=== PATIENT | female | born 1965 | race Caucasian/White ===

== ENCOUNTER 2020-01-31 19:18 | Inpatient (IN) | payer MEDICARE, SELFPAY ==
[2020-01-31] VITALS (7 sets, daily range): BP systolic 156–206; BP diastolic 88–118; PULSE 83–117; RESP 18–25; TEMP 36.5–37; O2SAT 94–96; BMI 31.6
--- NOTE | 2020-01-31 | DI.ECHO.S_ITS ---
[facility] +---------+ : : [address] : : : : [id number] : : : : Phone: [phone]+ Echocardiogram Report + + :Name: BEE POOLE Study Date: 02/01/2020 Height: 63 in : :[facility] Weight: 178 lb : : Gender: Female BSA: 1.8 m2 : :: 1965 Age: 54 yrs BP: 156/118 mmHg: :Reason For Study: CVA : :Ordering Physician: Lio : :Hospitalist Performed By: Lisa Velasquez : :Referring: SIDRA BEE : + + Interpretation Summary The left ventricle is normal in size. The left ventricle is hyperdynamic. The ejection fraction is estimated to be 70-75%. There are no obvious focal wall motion abnormalities noted but poor endocardial definition reduces the sensitivity for the detection of such. Diastolic parameters suggest a relaxation abnormality of the left ventricle, consistent with probable normal filling pressures. The right ventricle is not well visualized. The left atrial size is normal. Right atrium not well visualized. The interatrial septum is not well visualized, but there was no obvious moderate to large shunt on bubble study. The aortic root is not well visualized but is probably normal size. No obvious significant valvular abnormalities. Procedure: A two-dimensional transthoracic echocardiogram with color flow and Doppler was performed. The study quality was technically difficult. There is no prior echocardiogram noted for this patient. The injection was performed through an intravenous line in the right arm. The patient was in normal sinus rhythm during the exam. Left Ventricle: The left ventricle is normal in size. There is mild asymmetric left ventricular hypertrophy. The left ventricle is hyperdynamic. The ejection fraction is estimated to be 70-75%. There are no obvious focal wall motion abnormalities noted but poor endocardial definition reduces the sensitivity for the detection of such. Diastolic parameters suggest a relaxation abnormality of the left ventricle, consistent with probable normal filling pressures. Right Ventricle: The right ventricle is not well visualized. Atria: The left atrial size is normal. Right atrium not well visualized. The interatrial septum is not well visualized, but there was no obvious moderate to large shunt on bubble study. Mitral Valve: The mitral valve is normal in structure and function. There is trace mitral regurgitation. Aortic Valve: The aortic valve is not well visualized. There is no aortic stenosis. No aortic regurgitation is present. Tricuspid Valve: The tricuspid valve is not well visualized, but is grossly normal. Pulmonary artery pressures cannot be estimated because of the lack of a measurable TR jet velocity. There is a trace or physiologic amount of tricuspid regurgitation. Pulmonic Valve: The pulmonic valve is not well visualized. Great Vessels: The aortic root is not well visualized but is probably normal size. The ascending aorta is at the upper limits of normal in size. The IVC is of normal diameter and collapses greater than 50% with a sniff. This suggests a low right atrial pressure of 3 mm Hg. Pericardium/ Pleura There is an anterior echo-free space consistent with a fat pad. There is no pericardial effusion. There is no pleural effusion. MMode/2D Measurements & Calculations LVIDd: 4.9 cm LVOT diam: 2.1 cm LVIDs: 2.7 cm asc Aorta Diam: 3.3 cm FS: 45.2 % IVSd: 0.99 cm LVPWd: 1.2 cm LV willard. diameter/BSA (cm/m^2): 2.7 LV sys. diameter/BSA (cm/m^2): 1.5 LA A2 area: 11.4 cm2 IVC diam: 1.5 cm LA A4 area: 11.6 cm2 LA length (vol): 4.8 cm LA vol: 23.5 ml LA vol index: 12.8 ml/m2 Doppler Measurements & Calculations Ao V2 max: 135.7 cm/sec LVOT Max Job: 128.4 cm/sec Ao V2 mean: 106.7 cm/sec LV V1 max P.6 mmHg Ao max P.4 mmHg LV V1 VTI: 22.1 cm Ao mean P.7 mmHg LIBBY(I,D): 3.4 cm2 Ao V2 VTI: 21.8 cm LIBBY(V,D): 3.1 cm2 sev ratio: 1.0 LIBBY indexed to BSA (cm^2/m^2): 1.8 MV E max job: 71.0 cm/sec SV(LVOT): 73.2 ml MV A max job: 100.5 cm/sec MV E/A: 0.71 Med Peak E' Job: 7.3 cm/sec E/E' med: 9.8 Lat Peak E' Job: 7.6 cm/sec E/E' lat: 9.4 E/e' average: 9.6 MV dec time: 0.19 sec Reading Physician:02:58 PM
--- NOTE | 2020-01-31 19:39 | ED.NEUROSD ---
HPI - Neuro Symptoms/Deficit General Chief Complaint: Neuro Symptoms/Deficit Stated Complaint: BLIND SPOT LEFT EYE SHARP PAIN TOP HEAD Time Seen by Provider: 01/31/20 19:28 Source: patient Mode of arrival: Ambulatory Limitations: no limitations History of Present Illness HPI Narrative: This is a 54-year-old female who comes to the emergency department with complaint of loss of vision in the left side. Patient states she noticed it about noon today. She has also had a headache for about 2 weeks on the right side of her head. She states it felt like somebody is poking her with an ice pick in the head and occasionally twisting it. Sort of runs down her face. She did not notice any vision changes until she was driving today. She states she only drives intermittently and she realized that she could see a car from far away would disappear and then show up in her peripheral vision again. Patient states that she has neuropathy in her left leg so she typically has numbness there but she noticed numbness in her left arm in the last day or so. Patient denies any facial droop but states she does not look in the mirror, she states she does not talk to a lot of people so she does not know if she had any dysarthria but has had to gas and some words occasionally. She denies any current chest pressure. She has chronic shortness of breath secondary to her COPD states she is on oxygen 100% of the time. No nausea, no vomiting or other GI or urinary symptoms. Patient states that she did stop her medications for diabetes, dyslipidemia hypertension which was Lasix within the last year. She does continue to use her Combivent and oxygen regularly. She does still smoke. She states she has had a in the past but denies other surgical history. On Anticoagulants: No Related Data Previous Rx's Medication Instructions Recorded Combivent Respimat 1 puff INH Q6H #1 inh 11/06/16 Allergies Allergy/AdvReac Type Severity Reaction Status Date / Time azithromycin Allergy Severe ARM PAIN Verified 02/01/20 00:27 AND FACIAL REDNESS DURING INFUSION naproxen Allergy Severe Hives Verified 02/01/20 00:27 penicillin G Allergy Severe RASH Verified 02/01/20 00:27 codeine Allergy Mild RASH Verified 02/01/20 00:27 hydrocodone Allergy Mild RASH Verified 02/01/20 00:27 Review of Systems Review of Systems ROS Unobtainable: All systems reviewed & are unremarkable except as noted in HPI and below Patient History Medical History (Updated 02/01/20 @ 00:36 by DEBBY Summers) Cardiac arrhythmia (Acute) Chronic obstructive pulmonary disease (10/14/14) Diabetes (Acute) Diabetic neuropathy (Acute) Dyslipidemia (Acute) Hypertension (Acute) Surgical History (Updated 02/01/20 @ 00:36 by DEBBY Summers) History of (Acute) History of local excision of skin lesion (Acute) Family History Father Alcoholic cirrhosis Mother Age: 77 Diabetes mellitus type II, controlled CVA (cerebral infarction) Social History household members: children Smoking Status: Current every day smoker alcohol intake: former Smoking Status: Current every day smoker Exam Narrative Exam Narrative: GEN: well nourished, well appearing female, alert and oriented x 3, patient appears to be in mild distress. HEENT: Atraumatic, pupils are equal round reactive to light, extraocular movements are intact, patient has left visual loss of visual ashraf, nares are clear, TMs are clear with no fluid, there is no conjunctival pallor. Throat is clear without any exudates, erythema, tonsillar enlargement or uvular deviation, no facial droop noted, no dysarthria. HEART: Regular rate and rhythm without murmur, clicks, rubs. Pulses are equal in upper and lower extremities LUNGS:Lungs clear to auscultation, no wheezes, rales, crackles, chest moves symmetrically ABD:bowel sounds normal, soft, non-tender, no guarding, rebound, rigidity, no masses noted, no hepatosplenomegaly :No CVA tenderness MSCL: Non-tender, no muscle atrophy, muscles strength 5/5 upper and lower extremities, full range of motion, normal gait NEURO:CN 2-12 intact, sensation is intact bilaterally but decreased on the left in comparison to right, reflexes 2/4 upper and lower extremities. finger nose finger test normal, heel trinidad test normal, romberg normal Initial Vital Signs Initial Vital Signs: Vital Signs Temperature 98.6 F 01/31/20 19:27 Pulse Rate 117 H 01/31/20 19:27 Respiratory Rate 25 H 01/31/20 19:27 Blood Pressure 187/109 H 01/31/20 19:27 Pulse Oximetry 94 01/31/20 19:27 Scores NIH Stroke Scale Level of Conciousness: Alert, keenly responsive Ask month/age: Answers both questions correctly. Open/close eyes, close hand: Performs both tasks correctly Best gaze horizontal: Normal Visual ashraf: Partial hemianopia Facial palsy: Normal symetrical movement Left arm drift: No drift for full 10 sec Right arm drift: No drift for full 10 sec Left leg drift: No drift for full 10 sec Right leg drift: No drift for full 10 sec Limb ataxia: Absent Sensory on face/arms/legs: Mild to moderate sensory loss, can tell touch Best language: No aphasia, normal Dysarthria: Normal Extinction or inattention: No abnormality Total NIH Stroke scale score: 2 Course Orders Ordered: ED Orders 01/31/20 19:29 EKG-12 Lead Stat 01/31/20 19:45 Complete Blood Count AUTO DIFF Stat Comprehensive Metabolic Panel Stat Partial Thromboplastin Time Stat Prothrombin Time INR Stat Troponin & CK Cardiac Panel Stat 01/31/20 19:54 CT angio head and neck Stat Acetaminophen (Tylenol) 650 mg PO Q6HR PRN PRN Reason: Fever/Mild Pain (1-3) Last Admin: 02/01/20 00:33 Dose: 650 mg Documented by: TERESSA Al Hydrox/Mg Hydrox/Simethicone (Maalox Plus) 30 ml PO Q6HR PRN PRN Reason: Dyspepsia Albuterol (Ventolin) 2.5 mg INH [id number] PRN PRN Reason: Shortness Of Breath Albuterol/Ipratropium (Duoneb) 3 ml INH RTQ6HR PRN PRN Reason: Shortness Of Breath Last Admin: 02/01/20 00:05 Dose: 3 ml Documented by: ERNST Aspirin (Aspirin Ec) 81 mg PO DAILY SHANIQUE Atorvastatin Calcium (Lipitor) 20 mg PO BEDTIME SHANIQUE Bisacodyl (Dulcolax) 10 mg AL DAILY PRN PRN Reason: Constipation Calcium Carbonate (Tums) 1,000 mg PO Q4HR PRN PRN Reason: Dyspepsia Dextrose (D50w) 25 gm IV PRN PRN; Protocol PRN Reason: Hypoglycemia Docusate Sodium (Colace) 100 mg PO BID PRN PRN Reason: Constipation Enoxaparin Sodium (Lovenox) 40 mg SUBCUT DAILY [facility] Insulin Aspart (Novolog Flexpen) 0 unit SUBCUT ACHS [facility]; Protocol Labetalol HCl (Trandate) 10 mg IV Q4HR PRN PRN Reason: Hypertension Lisinopril (Zestril) 20 mg PO DAILY [facility] Last Admin: 02/01/20 00:33 Dose: 20 mg Documented by: TERESSA Naloxone HCl (Narcan) 0.2 mg IV Q2MIN PRN PRN Reason: Opiate Reversal Ondansetron HCl (Zofran) 4 mg IV Q8HR PRN PRN Reason: Nausea And Vomiting Last Admin: 02/01/20 00:33 Dose: 4 mg Documented by: TERESSA Discontinued Medications Aspirin (Aspirin Chew) 324 mg PO NOW ONE Stop: 01/31/20 21:44 Last Admin: 01/31/20 22:21 Dose: 324 mg Documented by: VIRAL Sodium Chloride (Normal Saline 0.9%) 1,000 mls @ 150 mls/hr IV CONT [facility] Stop: 01/31/20 22:44 Last Infusion: 01/31/20 22:25 Dose: 0 mls/hr Documented by: Admin: 01/31/20 20:48 Dose: 150 mls/hr Documented by: VIRAL Influenza Virus Vaccine (Flu Vaccine) 0.5 ml IM .ONCE ONE Stop: 01/31/20 22:51 Metoprolol Tartrate (Lopressor) 5 mg IV NOW ONE Stop: 01/31/20 21:09 Last Admin: 01/31/20 21:17 Dose: 5 mg Documented by: VIRAL Metoprolol Tartrate (Lopressor) 5 mg IV Q5M [facility] Stop: 01/31/20 21:56 Last Admin: 01/31/20 23:14 Dose: Not Given Documented by: Admin: 01/31/20 23:14 Dose: Not Given Documented by: Admin: 01/31/20 23:14 Dose: Not Given Documented by: TERESSA Vital Signs Vital signs: Vital Signs - 8 hr 01/31/20 19:27 01/31/20 21:07 01/31/20 21:18 Temperature 98.6 F Pulse Rate 117 H 89 88 Respiratory Rate 25 H 22 Blood Pressure 187/109 H Blood Pressure [Left Arm] 206/98 H 206/98 H Pulse Oximetry 94 96 MDM - Neuro Symptoms/Deficit Lab Data Attestation: I reviewed the patient's lab results. Result diagrams: 01/31/20 19:45 01/31/20 19:45 Labs: Lab Results 01/31/20 01/31/20 01/31/20 Range/Units 19:45 19:45 19:45 WBC 10.4 (4.5-11.0) X10^3/uL RBC 5.38 H (4.0-5.2) X10^6/uL Hgb 16.7 H (12.0-16.0) g/dL Hct 48.5 H (36-46) % MCV 90.1 (80-100) fL MCH 31.1 (26-34) PG MCHC 34.5 (30-36) % RDW 13.4 (11.6-14.8) % Plt Count 214 (150-400) X10^3/uL Neut % (Auto) 51.9 (50-75) % Lymph % (Auto) 39.3 (25-40) % [place] % (Auto) 6.8 (3-14) % Eos % (Auto) 0.8 L (2-4) % Baso % (Auto) 1.2 (0-2) % Neut # (Auto) 5400 (6970-1227) /uL Lymph # (Auto) 4100 (4088-3737) /uL [place] # (Auto) 700 (0-900) /uL Eos # (Auto) 100 (0-450) /uL Baso # (Auto) 100 (0-100) /uL PT 11.4 (10.1-12.7) SECONDS INR 1.0 (0.9-1.3) APTT 29 (26.4-36.2) SECONDS Sodium 138 (137-145) mmol/L Potassium 3.8 (3.4-5.1) mmol/L Chloride 102 (98-107) mmol/L Carbon Dioxide 28 (22-32) mmol/L BUN 14 (7-17) mg/dL Creatinine 0.71 (0.52-1.04) mg/dL Estimated GFR > 60.0 (>60) mL/min BUN/Creatinine Ratio 19.7 (6-22) Glucose 230 H (70-100) mg/dL Hemoglobin A1c (4.0-6.0) % Calcium 10.0 (8.4-10.2) mg/dL Magnesium (1.6-2.3) mg/dL Total Bilirubin 0.4 (0.2-1.3) mg/dL AST 24 (14-36) IU/L ALT 21 (<35) IU/L Alkaline Phosphatase 124 (38-126) U/L Total Creatine Kinase 34 (30-135) U/L CK-MB (CK-2) TNP CK-MB (CK-2) Rel Index TNP Troponin I < 0.012 (0.01-0.034) ng/mL Total Protein 7.5 (6.3-8.2) g/dL Albumin 4.3 (3.5-5.0) g/dL Globulin 3.2 (1.7-4.1) g/dL Albumin/Globulin Ratio 1.3 (1.0-2.8) 01/31/20 01/31/20 Range/Units 19:45 19:45 WBC (4.5-11.0) X10^3/uL RBC (4.0-5.2) X10^6/uL Hgb (12.0-16.0) g/dL Hct (36-46) % MCV (80-100) fL MCH (26-34) PG MCHC (30-36) % RDW (11.6-14.8) % Plt Count (150-400) X10^3/uL Neut % (Auto) (50-75) % Lymph % (Auto) (25-40) % [place] % (Auto) (3-14) % Eos % (Auto) (2-4) % Baso % (Auto) (0-2) % Neut # (Auto) (4775-3759) /uL Lymph # (Auto) (7162-9961) /uL [place] # (Auto) (0-900) /uL Eos # (Auto) (0-450) /uL Baso # (Auto) (0-100) /uL PT (10.1-12.7) SECONDS INR (0.9-1.3) APTT (26.4-36.2) SECONDS Sodium (137-145) mmol/L Potassium (3.4-5.1) mmol/L Chloride (98-107) mmol/L Carbon Dioxide (22-32) mmol/L BUN (7-17) mg/dL Creatinine (0.52-1.04) mg/dL Estimated GFR (>60) mL/min BUN/Creatinine Ratio (6-22) Glucose (70-100) mg/dL Hemoglobin A1c 9.7 H (4.0-6.0) % Calcium (8.4-10.2) mg/dL Magnesium 1.8 (1.6-2.3) mg/dL Total Bilirubin (0.2-1.3) mg/dL AST (14-36) IU/L ALT (<35) IU/L Alkaline Phosphatase (38-126) U/L Total Creatine Kinase (30-135) U/L CK-MB (CK-2) CK-MB (CK-2) Rel Index Troponin I (0.01-0.034) ng/mL Total Protein (6.3-8.2) g/dL Albumin (3.5-5.0) g/dL Globulin (1.7-4.1) g/dL Albumin/Globulin Ratio (1.0-2.8) Urine Dip Bedside Urine Glucose Negative Bedside Urine Bilirubin - Negative Bedside Urine Ketone - Negative Urine Specific [place] 1.010 Bedside Urine Occult Blood - Negative Bedside Urine pH 5.5 Bedside Urine Protein +/- 15 Bedside Urine Urobilinogen - Negative Bedside Urine Nitrite - Negative Bedside Urine Leukocytes - Negative Esterase Imaging Data CT head and neck angio: Radiologist's Impression: [place] [address] CT Scan Report Signed Patient: Jazmin Barragan [facility]#: [id number] : 1965Acct:[id number] Age/Sex: 54 / FDate of Service: 01/31/20 Loc: ED Accession Number: [id number] Procedure: CT angio head and neck Ordering Provider: Ameena Riddle D.O. PROCEDURE: CT ANGIO HEAD AND NECK INDICATIONS: left hemianopsia and left decreased sensation upper and low TECHNIQUE: Pre-contrast 4.5 mm thick sections acquired from the foramen magnum to the vertex. After the administration of intravenous contrast, 1 mm thick sections acquired from the aortic arch through the [place]. Post-contrast 4.5 mm thick sections then re-acquired from the foramen magnum to the vertex. 3-dimensional pljabni-qjsvveccn-djosvojntj (MIP) and/or volume rendering reformats were acquired of the central intracranial vasculature and neck separately. COMPARISON: None. FINDINGS: Image quality: Excellent. BRAIN: CSF spaces: Ventricles are normal in size and shape. Basal cisterns are patent. No extra-axial fluid collections. Brain: No midline shift. No intracranial bleeds or masses. Wyatt-white matter interface appears normal except for what appears to be a subacute stroke with low attenuation at the posterior right occipital lobe, in an area measuring up to 3.6 cm oblique transverse and 2.1 cm oblique AP. This results in effacement of the overlying cortical sulci in the right posterior occipital lobe directly contiguous with the area of ischemic injury. Skull and face: Calvarium and facial bones appear intact, without suspicious lesions. Orbits appear normal. Sinuses: Sinuses and mastoids are clear. HEAD CT ANGIOGRAPHY: Anterior circulation: Intracranial internal carotid arteries are normal in size and flow. The flow within the paired anterior cerebral arteries is normal and symmetric. The flow within the middle cerebral arteries is normal and symmetric. The anterior communicating artery is seen. No aneurysms are seen. Posterior circulation: Visualized portions of the vertebral arteries demonstrate normal caliber, and join to form a normal appearing basilar artery. Flow within the posterior cerebral arteries is normal and symmetric. No aneurysms are seen. NECK CT ANGIOGRAPHY: Carotid system: The great vessels demonstrate a conventional anatomy as they arise from the aortic arch. The origins of the common carotid arteries appear patent. The common carotid arteries demonstrate normal caliber and courses. The bifurcation regions are both widely patent. The internal carotid arteries demonstrate normal calibers and courses. Posterior circulation: The origins of the vertebral arteries both appear widely patent. The more superior extracranial portions of both vertebral arteries also demonstrate normal courses and calibers. They join to form a normal appearing basilar artery. Soft tissues: Visualized neck soft tissues demonstrate no suspicious abnormalities. Bones: No suspicious bony lesions. Visualized cervical spine appears normally aligned. IMPRESSION: Subacute stroke located within the right occipital lobe, measuring up to 3.6 x 2.6 cm, with mild local mass effect effacing overlying cortical sulci. An aneurysm, dissection, or thrombosis in the vasculature leading to this area is not found. Any quantitative measurements of stenosis were performed using NASCET criteria. Dictated by: Nabil Canales M.D. on 01/31/2020 at 21:13 Approved by: Nabil Canales M.D. on 01/31/2020 at 21:18 ECG Data Attestation: I personally reviewed and interpreted this ECG as follows: Interpretation: Sinus tachycardia rate 101 AL 180 QRS 85 and QTC 395[address] No ST elevation appreciated. No ST depression. MDM Narrative Medical decision making narrative: Patient comes in with hemianopsia and decreased sensation in the left upper and lower extremity as well as left face/cheek, patient has had symptoms for at least today, as well as vision changes that she noted sometime around noon today but states she had not been driving before then so did not appreciate them and isn't sure how long they have been present for sure. CT does show findings of a subacute stroke with a small amount of swelling. Patient is hypertensive in the department, her blood pressure did improve she was given a dose of metoprolol. Given aspirin which she states she is not allergic too and labs show elevated glucose but otherwise normal lab findings. Discussed with patient that likely her uncontrolled hypertension, diabetes and cholesterol treated to her recent stroke. Spoke with nurse practitioner Ronni Ferrer who accepts for admission. Discharge Plan Departure Patient Disposition: Admitted As Inpatient Clinical Impression: Acute CVA (cerebrovascular accident) Discharge Date/Time: 01/31/20 22:26 Admit Date/Time: 01/31/20 22:02 Admit Provider: Paramjit Ferrer
--- NOTE | 2020-01-31 19:54 | DI.CT.S_ITS ---
PROCEDURE: CT ANGIO HEAD AND NECK INDICATIONS: left hemianopsia and left decreased sensation upper and low TECHNIQUE: Pre-contrast 4.5 mm thick sections acquired from the foramen magnum to the vertex. After the administration of intravenous contrast, 1 mm thick sections acquired from the aortic arch through the [place]. Post-contrast 4.5 mm thick sections then re-acquired from the foramen magnum to the vertex. 3-dimensional psuaybj-egkjsyehv-dothlavmas (MIP) and/or volume rendering reformats were acquired of the central intracranial vasculature and neck separately. COMPARISON: None. FINDINGS: Image quality: Excellent. BRAIN: CSF spaces: Ventricles are normal in size and shape. Basal cisterns are patent. No extra-axial fluid collections. Brain: No midline shift. No intracranial bleeds or masses. Wyatt-white matter interface appears normal except for what appears to be a subacute stroke with low attenuation at the posterior right occipital lobe, in an area measuring up to 3.6 cm oblique transverse and 2.1 cm oblique AP. This results in effacement of the overlying cortical sulci in the right posterior occipital lobe directly contiguous with the area of ischemic injury. Skull and face: Calvarium and facial bones appear intact, without suspicious lesions. Orbits appear normal. Sinuses: Sinuses and mastoids are clear. HEAD CT ANGIOGRAPHY: Anterior circulation: Intracranial internal carotid arteries are normal in size and flow. The flow within the paired anterior cerebral arteries is normal and symmetric. The flow within the middle cerebral arteries is normal and symmetric. The anterior communicating artery is seen. No aneurysms are seen. Posterior circulation: Visualized portions of the vertebral arteries demonstrate normal caliber, and join to form a normal appearing basilar artery. Flow within the posterior cerebral arteries is normal and symmetric. No aneurysms are seen. NECK CT ANGIOGRAPHY: Carotid system: The great vessels demonstrate a conventional anatomy as they arise from the aortic arch. The origins of the common carotid arteries appear patent. The common carotid arteries demonstrate normal caliber and courses. The bifurcation regions are both widely patent. The internal carotid arteries demonstrate normal calibers and courses. Posterior circulation: The origins of the vertebral arteries both appear widely patent. The more superior extracranial portions of both vertebral arteries also demonstrate normal courses and calibers. They join to form a normal appearing basilar artery. Soft tissues: Visualized neck soft tissues demonstrate no suspicious abnormalities. Bones: No suspicious bony lesions. Visualized cervical spine appears normally aligned. IMPRESSION: Subacute stroke located within the right occipital lobe, measuring up to 3.6 x 2.6 cm, with mild local mass effect effacing overlying cortical sulci. An aneurysm, dissection, or thrombosis in the vasculature leading to this area is not found. Any quantitative measurements of stenosis were performed using NASCET criteria. Dictated by: Nabil Canales M.D. on 01/31/2020 at 21:13 Approved by: Nabil Canales M.D. on 01/31/2020 at 21:18
[2020-01-31 20:08] LABS: Add Manual Diff / Slide Review NO; Alanine Aminotransferase 21 IU/L (<35); Albumin 4.3 g/dL (3.5-5.0); Albumin Globulin Ratio 1.3 (1.0-2.8); Alkaline Phosphatase 124 U/L (38-126); Aspartate Aminotransferase 24 IU/L (14-36); BUN Creatinine Ratio 19.7 (6-22); Basophils Absolute Auto 100 /uL (0-100); Basophils Percent Auto 1.2 % (0-2); Bilirubin Total 0.4 mg/dL (0.2-1.3); Blood Urea Nitrogen 14 mg/dL (7-17); Carbon Dioxide 28 mmol/L (22-32); Chloride 102 mmol/L (98-107); Creatine Kinase 34 U/L (30-135); Eosinophils Absolute Auto 100 /uL (0-450); Eosinophils Percent Auto 0.8 % (2-4); Estimated Glomerular Filt Rate > 60.0 mL/min (>60); Globulin 3.2 g/dL (1.7-4.1); Glucose 230 mg/dL (70-100); HEMOLYSIS < 15 (0-50); Hematocrit 48.5 % (36-46); Hemoglobin 16.7 g/dL (12.0-16.0); Lymphocytes Absolute Auto 4100 /uL (1100-4500); Lymphocytes Percent Auto 39.3 % (25-40); Mean Corpuscular HGB Conc 34.5 % (30-36); Mean Corpuscular Hemoglobin 31.1 PG (26-34); Mean Corpuscular Volume 90.1 fL (80-100); Monocytes Absolute Auto 700 /uL (0-900); Monocytes Percent Auto 6.8 % (3-14); Neutrophils Absolute Auto 5400 /uL (1500-7000); Neutrophils Percent Auto 51.9 % (50-75); Platelet Count 214 X10^3/uL (150-400); Potassium 3.8 mmol/L (3.4-5.1); Red Blood Cell Count 5.38 X10^6/uL (4.0-5.2); Red Cell Distribution Width 13.4 % (11.6-14.8); Sodium 138 mmol/L (137-145); Total Protein 7.5 g/dL (6.3-8.2); White Blood Cell Count 10.4 X10^3/uL (4.5-11.0)
[2020-01-31 20:20] LABS: Troponin I < 0.012 ng/mL (0.01-0.034)
[2020-01-31 20:31] LABS: Prothrombin Time 11.4 SECONDS (10.1-12.7)
[2020-01-31 20:34] LABS: PTT Partial Thromboplastin Tim 29 SECONDS (26.4-36.2)
[2020-01-31] MEDS: SODIUM CHLORIDE 0.9% 1,000 ML 150 ML IV (20:48)
[2020-01-31] MEDS: METOPROLOL TARTRATE 5 MG/5 ML INJ IV (21:17)
--- NOTE | 2020-01-31 22:14 | PC.NURSE ---
metoprolol 5mg x 3 held. provider aware
[2020-01-31] MEDS: ASPIRIN 81 MG CHEW TAB 324 MG PO (22:21)
--- NOTE | 2020-01-31 22:25 | PC.NURSE ---
NS to continue in acute care
--- NOTE | 2020-01-31 22:48 | DI.MRI.S_ITS ---
PROCEDURE: MR STROKE Pre- and post-contrast brain MRI, non-contrast brain MR angiogram, pre- and postcontrast neck MR angiogram INDICATIONS: Right occipital CVA TECHNIQUE: Brain: Noncontrast axial T1 spin echo, axial T2 fast spin echo, sagittal and axial FLAIR, coronal T2 fast spin echo, axial gradient echo, axial diffusion and ADC through the brain. After the administration of contrast, axial 3D VIBE of the cranial vasculature and brain. Brain MRA: Non-contrast 3-D time of flight MR angiogram, with multiple ppazukz-qhjfwgtfc-qknpwslyab (MIP) reformats performed. Neck MRA: Axial and sagittal TruFISP through the neck. Coronal dynamic MR angiogram during administration of contrast in the arterial and venous phases, with 3-dimenstional zxmwguh-yenfjbfdg-gspmusqwgy (MIP) reformats constructed from subtraction images. COMPARISON: [facility], CT, CT ANGIO HEAD AND NECK, 01/31/2020, 19:53. FINDINGS: Image quality: Excellent. BRAIN: CSF spaces: Ventricles are normal in size and shape. Basal cisterns are patent. No extra-axial fluid collections. Brain: . Restricted water diffusion in the area of the right posterior temporo-occipital cortex and elise-white junction region consistent with subacute infarct. Cytotoxic edema seen on the T2 and FLAIR sequences. There is no significant mass effect on the right lateral ventricle. No midline shift. Subtle T1 increased signal in the region of acute infarct is consistent with the presence of intracellular met hemoglobin.. Right head of caudate lacunar infarction. Brainstem appears normal. Normal intravascular flow voids are present. Gyriform enhancement of the right temporo-occipital region subacute infarct. No suspicious masses. Skull and face: Calvarial marrow signal is normal. Orbits appear normal. Sinuses: Sinuses and mastoids are clear. BRAIN MR ANGIOGRAM: Anterior circulation: Intracranial internal carotid arteries are normal in size and enhancement. The flow within the paired anterior cerebral arteries is normal and symmetric. The flow within the middle cerebral arteries is normal and symmetric. The anterior communicating artery is seen. No stenoses, occlusions, or aneurysms. Posterior circulation: The visualized portions of the vertebral arteries demonstrate normal caliber, and join to form a normal appearing basilar artery. Multifocal right posterior cerebral artery stenoses, with at least moderate proximal right posterior cerebral artery stenosis. Mild left posterior cerebral artery luminal irregularities. NECK MR ANGIOGRAM: Carotids: Great vessels demonstrate a bovine arch anatomy as they arise from the aortic arch. The origins of the common carotid arteries appear patent. The calibers and courses of both common carotid arteries are normal. The bifurcation regions appear normal bilaterally. The internal carotid arteries demonstrate normal course and caliber. Posterior circulation: The origins of the vertebral arteries appear patent. More superior portions of both vertebral arteries demonstrate normal course and caliber, and join to form a normal appearing basilar artery. Miscellaneous: Subclavian arteries appear patent. Pre-contrast images through the neck show no soft tissue abnormalities. IMPRESSION: BRAIN MRI: 1. Subacute right posterior temporo-occipital infarct with associated cytotoxic edema without significant mass effect. 2. No interval infarcts. 3. Old right head of caudate infarct. BRAIN MR ANGIOGRAM: 1. Multifocal right posterior cerebral artery stenoses, with at least a moderate proximal stenosis present. 2. Otherwise unremarkable brain MR angiogram. NECK MR ANGIOGRAM: Unremarkable. Widely patent internal carotids. Dictated by: Vargas Gamez M.D. on 02/01/2020 at 11:36 Approved by: Vargas Gamez M.D. on 02/01/2020 at 11:51
--- NOTE | 2020-01-31 22:50 | PC.ADMIT ---
[email or web address] Admission Note: The patient,Jazmin Barragan,54 y/o, was given written information regarding hospital policies, unit procedures and contact persons. Patient's smoking status: Current every day smoker. Vital Signs - 8 hr 01/31/20 19:27 01/31/20 21:07 01/31/20 21:18 Temperature 98.6 F Pulse Rate 117 H 89 88 Respiratory Rate 25 H 22 Blood Pressure 187/109 H Blood Pressure [Left Arm] 206/98 H 206/98 H Pulse Oximetry 94 96 01/31/20 22:14 Temperature Pulse Rate 84 Respiratory Rate Blood Pressure Blood Pressure [Left Arm] 186/88 H Pulse Oximetry Patient up from ED via wheelchair. Gait steady to ac bed. Patient on chronic o2 2L sats 96%, slight expiratory wheeze heard throughout lung ashraf. Patient still c/o Lf side headache 03/03 but states its tolerable at this time. and still has Lf side vision impairment. Patient A&O, calm and cooperative.
[2020-01-31 23:13] LABS: Magnesium 1.8 mg/dL (1.6-2.3)
[2020-01-31 23:18] LABS: Hemoglobin A1C% w Est Avg Glu 9.7 % (4.0-6.0)
[2020-02-01] VITALS (8 sets, daily range): BP systolic 117–156; BP diastolic 59–118; PULSE 79–95; RESP 18–20; TEMP 36.6–37.1; O2SAT 90–95
[2020-02-01] MEDS: ALBUTEROL/IPRATROPIUM 3 ML AMPUL INH ×2 (00:05→08:50)
--- NOTE | 2020-02-01 00:05 | PM.HP.1 ---
History of Present Illness History of Present Illness Date Patient Seen: 01/31/20 Time Patient Seen: 23:05 Chief complaint: BLIND SPOT LEFT EYE SHARP PAIN TOP HEAD Narrative: Miss Jazmin Barragan is a 54-year-old female with a past medical history significant for hypertension, diabetes type 2, COPD on home oxygen 2 L and dyslipidemia who presents to the hospital with acute visual loss. The patient reports right-sided headache at the base of the occiput and the top of the head for which she was taking Tylenol and Excedrin migraine with relief. The patient was driving to the store to get more medication at approximately noon when she noticed that she would lose sight of oncoming traffic which would reappear in her peripheral vision. Patient also reports that she had left arm numbness for 2 days. She has diabetic neuropathy of both lower extremities and does not appreciate a worsening of left-sided numbness. She reports no dizziness or ataxia. The patient has a history of hypertension hyperlipidemia diabetes for which she stopped her medications approximately 1 year ago. She has continued to use her Combivent inhaler and continuous home O2. The patient does complain of chills and occasional night sweats. Denies complaints of chest pain though she does feel occasional heart palpitations. She has been previously been told that she is approaching end-stage lung disease with marked exertional dyspnea and endorses that frequently she cannot make it to the bathroom without having to stop to catch her breath. Denies complaints of abdominal pain though she has had nausea without vomiting over the last couple days. She denies complaints of urinary symptoms with no burning, urgency, frequency or hematuria. She reports no change in bowel habits. Upon arrival the ER the patient is afebrile with a temperature of 98.6?, tachycardic at 117 and hypertensive 187/109 with respiratory rate of 25 saturating 94% on 2 liters/minute nasal cannula. CT angiogram of the head finds a subacute stroke in the right occipital area measuring 3.6 x 2.6 with mild mass effect, carotids are normal in caliber and course. A 12 lead EKG finds sinus tachycardia with a ventricular rate of 101 without ectopy or block, no ST or T-wave changes. On laboratory analysis the patient has white count of 10.4, hemoglobin of 16.7, hematocrit of 40.5 and platelets of 214. Her PT is 11.4 with an INR 1.0 and a PTT of 29. Electrolytes all within normal limits she has a BUN of 14 and creatinine 0.71. Her nonfasting glucose is 230. She has a total bilirubin of 0.4, AST 24, ALT 21 and alkaline phosphatase 124. She has a total CK of 34 troponin that is negative and less than 0.012. The patient received aspirin 324 mg in the emergency room and dose of metoprolol 5 mg IV for hypertension. Patient is admitted to the medicine service for CVA. Patient History Medical History (Updated 02/01/20 @ 00:36 by DEBBY Summers) Cardiac arrhythmia (Acute) Chronic obstructive pulmonary disease (10/14/14) Diabetes (Acute) Diabetic neuropathy (Acute) Dyslipidemia (Acute) Hypertension (Acute) Surgical History (Updated 02/01/20 @ 00:36 by DEBBY Summers) History of (Acute) History of local excision of skin lesion (Acute) Family & Social History Family History Father Alcoholic cirrhosis Mother Age: 77 Diabetes mellitus type II, controlled CVA (cerebral infarction) Social History: household members children Prior Living Arrangements House Safety & Behavioral: Feels Safe in Current Yes Environment Been Physically Hurt or No Threatened By a Person Suicidal Ideation Description None Suicide Plan Description No Plan Tobacco & Substance use: Smoking Status Current every day smoker alcohol intake former Substance Use Type does not use Comment: The patient is single and lives with her son in a single family home. She rents a room to her son's friend. Her father had cirrhosis and her mother had diabetes and CVA. Occupation: Disabled. 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 Alcohol: The patient denies alcohol consumption. Substance use: The patient denies recreational pharmaceuticals herbal or cannabis products. Advanced directives: The patient states her desire to be FULL CODE. She designates her sister Katelyn Cornejo to be her surrogate decision maker. Meds Home Medications and Allergies Home Medications Medication Instructions Recorded Confirmed Type Combivent Respimat 1 puff INH Q6H #1 inh 11/06/02/01/20 Rx Allergies Allergy/AdvReac Type Severity Reaction Status Date / Time azithromycin Allergy Severe ARM PAIN Verified 02/01/20 00:27 AND FACIAL REDNESS DURING INFUSION naproxen Allergy Severe Hives Verified 02/01/20 00:27 penicillin G Allergy Severe RASH Verified 02/01/20 00:27 codeine Allergy Mild RASH Verified 02/01/20 00:27 hydrocodone Allergy Mild RASH Verified 02/01/20 00:27 Review of Systems Review of Systems ROS: Yes All systems reviewed with the patient and are negative except as otherwise documented Exam Vital Signs (past 8 hours): - 01/31/20 19:27 01/31/20 21:07 01/31/20 21:18 Temperature 98.6 F Pulse Rate 117 H 89 88 Respiratory Rate 25 H 22 Blood Pressure 187/109 H Blood Pressure [Left Arm] 206/98 H 206/98 H Pulse Oximetry 94 96 01/31/20 22:14 01/31/20 22:30 Temperature 97.7 F Pulse Rate 84 83 Respiratory Rate 19 Blood Pressure 191/89 H Blood Pressure [Left Arm] 186/88 H Pulse Oximetry 96 Oxygen Delivery Method Nasal Cannula Oxygen Flow Rate 2 Narrative Exam Narrative: GENERAL APPEARANCE: well developed, overweight female with a BMI of 31.6, sitting at bedside with mild dyspnea. HEENT: Symmetrical facies, no ptosis, PERRLA, conjunctiva clear, EOMs intact without nystagmus, left upper hemiopsia, no rhinorrhea, mucous membranes are moist and pink without lesions or exudate. NECK/THYROID: neck supple, no JVD, no carotid bruit, no thyromegaly, trachea midline. LYMPH NODES: no cervical or supraclavicular lymphadenopathy, palpable nontender left axillary lymph node. SKIN: [place], warm and dry, no visible lesions, rashes, ulcerations or petechiae. HEART: regular rate and rhythm, S1-S2, no murmur, no rubs or gallops, brisk capillary refill, trace pedal edema LUNGS: Bilateral expiratory wheezing without coarseness or crackles, no cough present on deep inspiration. CHEST: Symmetrical movement, increased AP diameter, no accessory muscle use, no supraclavicular retractions. ABDOMEN: Soft, round, no abdominal tenderness, no organomegaly, no flank tenderness, active bowel tones. BACK: Normal curvature, nontender to palpation, no CVA tenderness on percussion EXTREMITIES: moves all extremities, strength is 5/5 and symmetrical without drift or ataxia, no deformities or joint effusions. NEUROLOGIC: AAO x4, left hemiopsia, difficulty focusing to visualized words on naming card, diminished sensation right face, BLE neuropathy. PSYCH: Good judgment, good insight, linear thought process, cooperative, appropriate with stable behavior Objective Labs Result Diagrams: 01/31/20 19:45 01/31/20 19:45 Labs: Laboratory Results - last 24 hr 01/31/20 01/31/20 01/31/20 19:45 19:45 19:45 WBC 10.4 RBC 5.38 H Hgb 16.7 H Hct 48.5 H MCV 90.1 MCH 31.1 MCHC 34.5 RDW 13.4 Plt Count 214 Neut % (Auto) 51.9 Lymph % (Auto) 39.3 [place] % (Auto) 6.8 Eos % (Auto) 0.8 L Baso % (Auto) 1.2 Neut # (Auto) 5400 Lymph # (Auto) 4100 [place] # (Auto) 700 Eos # (Auto) 100 Baso # (Auto) 100 PT 11.4 INR 1.0 APTT 29 Sodium 138 Potassium 3.8 Chloride 102 Carbon Dioxide 28 BUN 14 Creatinine 0.71 Estimated GFR > 60.0 BUN/Creatinine Ratio 19.7 Glucose 230 H Hemoglobin A1c Calcium 10.0 Magnesium Total Bilirubin 0.4 AST 24 ALT 21 Alkaline Phosphatase 124 Total Creatine Kinase 34 CK-MB (CK-2) TNP CK-MB (CK-2) Rel Index TNP Troponin I < 0.012 Total Protein 7.5 Albumin 4.3 Globulin 3.2 Albumin/Globulin Ratio 1.3 01/31/20 01/31/20 19:45 19:45 WBC RBC Hgb Hct MCV MCH MCHC RDW Plt Count Neut % (Auto) Lymph % (Auto) [place] % (Auto) Eos % (Auto) Baso % (Auto) Neut # (Auto) Lymph # (Auto) [place] # (Auto) Eos # (Auto) Baso # (Auto) PT INR APTT Sodium Potassium Chloride Carbon Dioxide BUN Creatinine Estimated GFR BUN/Creatinine Ratio Glucose Hemoglobin A1c 9.7 H Calcium Magnesium 1.8 Total Bilirubin AST ALT Alkaline Phosphatase Total Creatine Kinase CK-MB (CK-2) CK-MB (CK-2) Rel Index Troponin I Total Protein Albumin Globulin Albumin/Globulin Ratio Assessment & Plan Assessment & Plan narrative: 1. Subacute CVA, right occipital, present on admission, active. -Two weeks of symptoms of headaches, 2 days of arm numbness and today developing left upper hemiopsia. -Patient continues to complain of right occipital headache and pain at the top of her head. She denies difficulty chewing or swallowing, dizziness or ataxia. -CT angiogram: subacute stroke located within the right occipital lobe, measuring up to 3.6 x 2.6 cm, with mild local mass effect effacing overlying cortical sulci. -NIH score is 2. -Received aspirin 324 mg in the emergency department, ordered aspirin 81 mg daily. -Neurochecks every 4 hours. -Ordered MR stroke protocol. -Ordered echocardiogram. -Ordered lipid panel, TSH and hemoglobin A1c for the morning. 2. Diabetic type 2 with hyperglycemia, with diabetic neuropathy, present on admission, active. -Patient stopped taking her metformin reported at 1000 mg daily over 1 year ago. Blood sugar on admission is 230. 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 -Fingerstick blood sugars AC and HS, coverage with low-dose sliding scale insulin. -Will obtain hemoglobin A1c. -Dietitian to consult. 3. Chronic obstructive lung disease, oxygen dependent, present on admission, active. 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 -She is on continuous oxygen 2 liters/minute -She reports the progressive exertional dyspnea stating that frequently she cannot make it to the bathroom. -Ordered chest x-ray last available chest films 2016. -Twelve lead EKG with findings consistent with pulmonary disease, right ventricular hypertrophy. -Ordered echo cardiogram, evaluate pulmonary artery hypertension secondary to pulmonary disease. -Respiratory therapy to consult evaluate and treat. -Ordered albuterol nebulizers every 2 hours as needed. -Ordered DuoNebs every 6 hours as needed, RT to review, Combivent inhaler use. -Strongly encouraged smoking cessation. 4. Essential hypertension, present on admission, active -Patient had blood pressure of 187/109 on admission to the ER. Patient had received metoprolol 5 mg IV in the emergency department. -The patient quit taking her Lasix use for hypertension. -Ordered lisinopril 20 mg now and daily. -Ordered labetalol 10 mg IV as needed systolic blood pressure greater than 180 or diastolic pressure greater than 110. -Will closely follow blood pressures and treat as indicated. 5. Dyslipidemia, chronic, active -Patient was previously on lipid-lowering medication but does not recall which med. -Will obtain lipid panel. -Ordered atorvastatin 20 mg daily. Patient self discontinued meds due to cost and living on disability. Spoke at length about 4 dollar [employer] prescription program. Lisinopril was selected as on the medication list is affordable medication and patient would benefit from metformin ER 500 mg both which are on the 4 dollar list for 30 day supply. Ordered atorvastatin which is also on the [employer] list at 9 dollars for a 30 day supply. VTE prophylaxis: SCDs and enoxaparin IV fluid: Saline lock Diet: Heart healthy, low-sodium. The patient is admitted to the hospital for further evaluation and monitoring for CVA. The patient is admitted as observation with expected length of stay to be less than 2 midnights. Scores GCS [place] coma scale eye opening: Spontaneous [place] coma scale verbal response: Orientated [place] coma scale motor response: Obey commands Syl[place] coma scale total score: 15 NIHSS Level of Conciousness: Alert, keenly responsive Ask month/age: Answers both questions correctly. Open/close eyes, close hand: Performs both tasks correctly Best gaze horizontal: Normal Visual ashraf: Partial hemianopia Facial palsy: Normal symetrical movement Left arm drift: No drift for full 10 sec Right arm drift: No drift for full 10 sec Left leg drift: No drift for full 5 sec Right leg drift: No drift for full 5 sec Limb ataxia: Absent Sensory on face/arms/legs: Mild to moderate sensory loss, can tell touch Best language: No aphasia, normal Dysarthria: Normal Extinction or inattention: No abnormality Total NIH Stroke scale score: 2 Quality VTE Deep Vein Thrombosis/Pulmonary Embolism Present on Admission: No
[2020-02-01] MEDS: lisinopriL 20 MG TABLET PO ×2 (00:33→08:24)
[2020-02-01] MEDS: ONDANSETRON 4 MG/2 ML INJ IV (00:33)
[2020-02-01] MEDS: ACETAMINOPHEN 325 MG TABLET 650 MG PO ×2 (00:33→08:24)
--- NOTE | 2020-02-01 03:37 | DI.RAD.S_ITS ---
PROCEDURE: XR CHEST 1V INDICATIONS: Worsening shortness of breath, chronic obstructive pulmonary disease TECHNIQUE: One view of the chest was acquired. COMPARISON: [facility], , CHEST 2 VIEW, 02/06/2017, 13:01. FINDINGS: Surgical changes and devices: None. Lungs and pleura: Lungs are clear. No pleural effusions or pneumothorax. Mediastinum: Mediastinal contours appear normal. Heart size is normal. Bones and chest wall: No suspicious bony lesions. Overlying soft tissues appear unremarkable. IMPRESSION: 1. No acute cardiopulmonary disease. Dictated by: Kenneth Wei M.D. on 02/01/2020 at 9:07 Approved by: Kenneth Wei M.D. on 02/01/2020 at 9:07
[2020-02-01 06:18] LABS: Blood Urea Nitrogen 14 mg/dL (7-17); Calcium 9.4 mg/dL (8.4-10.2); Carbon Dioxide 27 mmol/L (22-32); Chloride 102 mmol/L (98-107); Cholesterol 290 mg/dL (140-199); Estimated Glomerular Filt Rate > 60.0 mL/min (>60); Glucose 211 mg/dL (70-100); HDL Cholesterol 45 mg/dL (40-60); HEMOLYSIS < 15 (0-50); LDL Cholesterol Calculated 180 mg/dL (<100); Potassium 3.9 mmol/L (3.4-5.1); Sodium 137 mmol/L (137-145); Triglycerides 327 mg/dL (35-150)
[2020-02-01 06:47] LABS: Thyroid Stimulating Hormone 0.91 uIU/mL (0.47-4.68)
[2020-02-01] MEDS: ENOXAPARIN 40 MG/0.4 ML SYRINGE SUBCUT (08:23)
[2020-02-01] MEDS: ASPIRIN EC 81 MG TABLET PO (08:24)
[2020-02-01] MEDS: INSULIN ASPART 100 UNIT/ML INSULN PEN SUBCUT ×2 (08:25→12:36)
[2020-02-01] MEDS: SODIUM CHLORIDE 0.9% FLUSH 10 ML IV (08:26)
--- NOTE | 2020-02-01 08:58 | PC.NURSE ---
Patient alert oriented, speech is clear, NIH2. Pt short of breath with talking and ambulation. LS diminished throughout with exp wheezes in the posterior bases. Sats on 2L 93%, RT called to assess.
[2020-02-01] MEDS: ALBUTEROL 2.5 MG/3 ML NEB (ADULT) INH (09:00)
--- NOTE | 2020-02-01 10:00 | PT.IIE ---
Surgical History (Last Updated 02/01/20 @ 00:36 by DEBBY Summers) History of (Acute) History of local excision of skin lesion (Acute) Medical History (Last Updated 02/01/20 @ 00:36 by DEBBY Summers) Cardiac arrhythmia (Acute) Chronic obstructive pulmonary disease (10/14/14) Diabetes (Acute) Diabetic neuropathy (Acute) Dyslipidemia (Acute) Hypertension (Acute) Physical Therapy Inpatient Evaluation/Re-Eval M1 PT/OT-IP Prior Functional Status Start: 02/01/20 11:22 Freq: NEEDED Status: Active Protocol: Document 02/01/20 10:00 AB (Rec: 02/01/20 11:50 AB [id number]) Medical Review Prior Functional Status Medical History Reviewed Yes Communication pt agreeable to do PT Mobility and Gait pt stated that she is modified independent with all mobilities and ambulation without AD indoors but furniture cruises and uses a 4WW for long distance mobility / uses grocery cart whe out shopping Social History Household Members children Living Arrangements House Number of Floors (Floors) 3 or More Floors Number of Stairs To Enter/Railing? pt stays on main level of the house has 4 steps to enter with L rail ascending Home Environment Standard Height Toilet,Tub/ Shower Home Equipment Four Wheel Walker,Quad Cane, Straight Cane,Hand Held Shower Additional Social History Comment son lives downstairs from her but goes to work and cannot assist pt much uses O2 at home 24/7 at 2L/min daytime and 3L/min at night M2 PT-IP Current Condition Start: 02/01/20 11:22 Freq: NEEDED Status: Active Protocol: Document 02/01/20 10:00 AB (Rec: 02/01/20 11:50 AB [id number]) Physical Therapy Current Condition Current Condition Evaluation Date 02/01/20 Treatment Diagnosis CVA; difficulty in walking Onset Date 01/31/2020 M3 PT-IP Subjective Start: 02/01/20 11:22 Freq: NEEDED Status: Active Protocol: Document 02/01/20 10:00 AB (Rec: 02/01/20 11:50 AB [id number]) Subjective Physical Therapy Visit Type Type Initial Evaluation Visit Start Time 10:00 Visit Stop Time 10:29 Total Visit Minutes 29 Number of TESTER EQUIPMENT Visits 0 Physical Therapy Visit Comments Patient Comments pt agreeable to do PT Therapy Pain Assessment Pain When Pain Assessed At Rest Location Right Head Intensity 3 Scale Used Numeric (1 - 10) Description Stabbing Pain Management Techniques Timing of Activity with Medications M4 PT-IP Mobility and Gait Start: 02/01/20 11:22 Freq: NEEDED Status: Active Protocol: Document 02/01/20 10:00 AB (Rec: 02/01/20 11:50 [id number]) PT-Bed Mobility Assessment Supine to Sit Supine to Sit Independent Sit to Supine Sit to Supine Independent Scooting Scooting to Edge of Bed Independent PT-Transfer Assessment Sit to and From Stand Sit to and from Stand Contact Guard Assistance, Minimal Assistance,1 Person Assistance,Use of Upper Extremities Equipment Transfer Assistive Device None,Gait Belt,Front Wheeled Walker Orthotic/Prosthetic Devices or Brace: No Comments Mobility Comments pt completed supine to sit modified independent. completed sit to stand CGA and ambulated in room without AD CGA to min A and cues ~ 20 ft. educated pt on on safety. ambulated in room again ~ 30 ft using FWW SBA to CGA and cues. pt sat on chair with table and call light within reach. O2 on during mobility Gait Assessment Gait Gait Assistance Required: Contact Guard Assist,Minimum Assistance Distance (Feet) 30 Able to Maintain Weight Bearing Status Yes During Gait Assistive Devices Assistive Device None,Gait Belt,Front Wheeled Walker Orthotic/Prosthetic Devices or Brace: No Gait Deviations General Gait Pattern Decreased Stride Length, Decreased Feet Clearance Factors Limiting Gait Function Factors Limiting Gait Function Decreased Activity Tolerance, Decreased Strength,Pain,Poor Balance,Poor Safety Awareness Comments Gait Comments pls refer to mobility section for details. recommending use of FWW at this time for safety. PT-Balance Assessment Sitting Balance and Reactions Static Sitting Balance Ability Good Dynamic Sitting Balance Ability Good Standing Balance and Reactions Static Standing Balance Ability Fair Dynamic Standing Balance Ability Poor Device Used without AD M5 PT-IP Objective Assessments Start: 02/01/20 11:22 Freq: NEEDED Status: Active Protocol: Document 02/01/20 10:00 AB (Rec: 02/01/20 11:50 AB [id number]) Orientation Orientation/Cognition Level of Alertness Alert Orientation Name,Age,Birthday,Month,Date, Year,Day of Week,Place, Situation Language Function Ability No Deficits Noted Gross Range of Motion Lower Extremity ROM Assessment Within Functional Limits Strength Lower Extremity Strength Assessment Right Impaired Hip 3+/5 Knee 3+/5 Sensation Assessment Sensation Gross Sensation Right LE Impaired Light Touch Impaired Comments Sensation Comments pt able to determine location on BLE for light touch but stated that sensation is less on RLE Muscle Tone Muscle Tone WNL Yes M6 PT-IP Treatment Start: 02/01/20 11:22 Freq: NEEDED Status: Active Protocol: Document 02/01/20 10:00 AB (Rec: 02/01/20 11:50 AB [id number]) Physical Therapy Treatment Education Education Provided Safety M7 PT-IP Assessment and Plan Start: 02/01/20 11:22 Freq: NEEDED Status: Active Protocol: Document 02/01/20 10:00 AB (Rec: 02/01/20 11:50 AB [id number]) PT Summary Assessment and Plan Potential Rehabilitation Potential Good Status of Condition at Evaluation Stable Summary Impairments Pain,ROM,Strength,Balance, Sensation,Bed Mobility, Transfers,Gait,Activity Tolerance Assessment Summary pt requiring CGA to min A with ambulation without AD but only required SBA to CGA with use of FWW. d/c plans depending on progress. will continue to work on goals. Goals Bed Mobility Goal Independent Transfer Goal Independent Gait Goal Independent,Front Wheel Walker ,Four Wheel Walker Gait Distance 200 Other Goals up/down 4 steps L rail SBA improve ambulation without AD SBA ~ 150 ft Days to Meet Goals 5 Frequency of Treatment Frequency Of Treatment Once a Day Treatment Plan Physical Therapy Treatment Plan Bed Mobility Training,Transfer Training,Gait Training, Therapeutic Exercise,Balance Retraining,Discharge Planning, Neuromuscular Re-ed, Coordination Retraining Other Recommendations and Next Treatment ambulation using 4WW/without Focus AD; stair climbing when appropriate Recommendations To Nursing Amount of Assist Needed 1 Person Assist Discharge Recommendations PT Discharge Recommendations Home with Assistance, Outpatient PT Transportation Needs at Discharge Private Vehicle
[2020-02-01] MEDS: INFLUENZA VACCINE 0.5 ML SYRINGE IM (13:24)
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
--- NOTE | 2020-02-01 14:39 | ST.IPIE ---
Visit Care Team Role Provider Type Ameena Riddle DO Emergency Provider Physician Referring Provider Specialty: Emergency Medicine Address: [address] [place] [address], [id number] Email: [email or web address] Admit Provider Physician Attending Provider Specialty: Internal Medicine Address: [address] [place] [address], [id number] Email: [email or web address] Diagnoses Cerebral infarction, unspecified (02/01/20) Past Medical History (Last Updated 02/01/20 @ 00:36 by DEBBY Summers) Cardiac arrhythmia (Acute Medical) Atrial flutter Chronic obstructive pulmonary disease (Medical 10/14/14) Diabetes (Acute Medical) Diabetic neuropathy (Acute Medical) Dyslipidemia (Acute Medical) Hypertension (Acute Medical) ST IP Initial Evaulation Report 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 OPERATOR APPRENTICE Clinical Swallow Evaluation Start: 02/01/20 11:58 Freq: Status: Active Protocol: Document 02/01/20 11:59 LEONIE (Rec: 02/01/20 12:29 LEONIE [id number]) Clinical Swallow Evaluation Session Time Visit Start Time 08:50 Visit Stop Time 09:20 Total Visit Minutes 30 Referral Referring Physician DEBBY Summers Reason for Referral CVA Setting Assessment Location Acute Care Visit Type Note Type Initial Evaluation Patient Information Identification Type Name,ID Card History Per H&P: Jazmin Barragan is a 54 -year-old female with a past medical history significant for hypertension, diabetes type 2, COPD on home oxygen 2 L and dyslipidemia who presents to the hospital with acute visual loss. The patient was driving to the store to get more medication at approximately noon when she noticed that she would lose sight of oncoming traffic which would reappear in her peripheral vision. Patient also reports that she had left arm numbness for 2 days. She has diabetic neuropathy of both lower extremities and does not appreciate a worsening of left-sided numbness. She reports no dizziness or ataxia. The patient has a history of hypertension hyperlipidemia diabetes for which she stopped her medications approximately 1 year ago. She has been previously been told that she is approaching end-stage lung disease with marked exertional dyspnea and endorses that frequently she cannot make it to the bathroom without having to stop to catch her breath. Patient continues to smoke 1/2 pack per day stating she rolls her own unfiltered cigarettes. BRAIN MRI: 1. Subacute right posterior temporo-occipital infarct with associated cytotoxic edema without significant mass effect. 2. No interval infarcts. 3. Old right head of caudate infarct. Subjective Observations The pt was awake, sitting up in bed and watching TV upon EMBOSSING PRESS OPERATOR APPRENTICE arrival. Pt and Nsg reported an aspiration event earlier this morning with lukewarm coffee taken through cup with lid. Pt reported coffee spilled down chin when she attempted to drink it and then significant coughing to the point that it scared me. No other swallow difficulties were noted. Evaluation Liquids Trialed Thin Solids Trialed Dysphagia Mechanical, Mechanical Soft,Regular Administration Type Cup Single Sip,Cup Consecutive Sips,Straw,Self-Feeding Oral Impairment WFL Oral Strategies Upright at 90 degrees, Controlled Bite/Sip Size Oral Phase Comments OPE: Symmetrical features WNL of strength, ROM and coordination. Pt is missing all upper teeth and wears a partial that includes front teeth and 2 left side molars. Partial is poor fitting and requires significant adhesive to remain in place. Pt reported she does not have dental insurance and has pulled her own teeth when they have needed to be removed. She wears a partial for lower front teeth as well, and most of lower molars are intact. Soft palate elevates upon phonation. Hyolaryngeal elevation/excursion appears to be WFL but difficult to palpate d/t thick neck tissue. Oral Phase: Minimal anterior labial spillage observed x1 when pt drank coffee from cup with lid. Oral prep, a/p transit and swallow trigger WNL. Mildly extensive mastication observed, consistent with dentition. Pt stated she avoids very hard to chew foods such as raw carrots and apples d/t dentition but is able to self- identify and choose approriate foods. No abnormal oral residue or pocketing observed. Pharyngeal Impairment WNL Pharyngeal Strategies Small Bites and Sips Pharyngeal Phase Comments No overt s/sx of aspiration were observed with all trials. Pt maintained clear voice throughout eval. Mild SOB noted throughout eval, which appears related to general pulmonary function as opposed to swallow. Swallow and breath support appear to coordinate sufficiently. Suspect earlier aspiration event to be an isolated situation, possibly d /t distraction of anterior labial spillage. Findings Impressions The pt presents with swallow function WNL. Mildly extended mastication present d/t sparse dentition but the pt is able to manage independently and this does not impact swallow safety. Pt is able to self- identify and choose/avoid foods appropriate to mastication abilities. Diet Recommendations Liquids Order Thin Diet Order Regular Medication Recommendations As Tolerated Aspiration Precautions Recommended Precautions Upright at 90 Degrees,Small Bites/Sips Treatment Plan Placement Recommendations after Home Discharge Therapy Recommendations No dysphagia therapy is warranted at this time. EMBOSSING PRESS OPERATOR APPRENTICE Language Evaluation Start: 02/01/20 11:58 Freq: Status: Active Protocol: Document 02/01/20 11:59 LEONIE (Rec: 02/01/20 12:29 LEONIE [email or web address]) Language Evaluation Session Time Visit Start Time 09:30 Visit Stop Time 09:45 Total Visit Minutes 20 Visit Information Visit Number Initial Evaluation Referral Referring Physician DEBBY Summers Reason for Referral CVA Language Evaluation Assessment Type Informal Expressive & Receptive Language Assessment Hearing Hearing Level Needs Hearing Check Auditory History Pt c/o occasionally not understanding speech. Reports losing sound when she turns her head, suggestive of unilateral hearing loss. Vision Vision Status Impaired Comments Wears prescription bifocals; Left side neglect/field deficits [place] Language Language(s) Spoken in the Home [place] Previous Therapy Previous Speech-Language Therapy No Oral Motor Examination Oral Motor Exam Completed Yes: See Clinical Bedside Swallow Evaluation Subjective Subjective She reported left side visual loss and noted that she must hold reading material at right of center to see and read text. She reports being an avid and fast reader at baseline. Also reported WFD in the last 2 wks and need to describe items to son or ask him for words. She denied difficulty with other expressive language skills. She c/o occ difficulty understanding speech of others including TV personalities, stating, I know their speaking [place] but it doesn' t sound like [place] to me, or I hear a word that doesn't make sense and I have to piece together what they are saying . When asked, reported suspicion of hearing change, possibly one side greater than other. - Informal Assessment Receptive Language Normal Yes Expressive Language Normal c/o WFDs Articulation Normal Yes Cognition Normal DNT. WNL for conversation Assessment Findings Expressive Language: Pt able to perform confrontational naming with variety of objects in room. No WFDs exhibited in egocentric conversation. No overt expressive language deficits. Speech is 100% intelligible and language WNL of syntax and vocabulary in conversation. Did not test writing skills. Receptive Language: No overt deficits in auditory comprehension in coversation and simple reading task. Pt able to follow simple 1- and 2 -step directions. Answers yes/ no and open ended questions appropriately. Mild deficits in reading speed. Pt read aloud with halting speech and reported words are blending together and I have to work to visually separate them. Visuospatial/Scanning: Pt independently positioned written text within active visual field and scanned left to right and row to row without interruption. As stated, she reported visual blending of words, which required extra effort to separate and process for reading. Recommendations ST to follow pt through hospital stay to more thoroughly evaluate WFD and reading/writing skills in relation to visuospatial skills and to determine if continued therapy is warranted . - Receptive Language - Expressive Language - Recommendations Recommendations Hearing assessment. Treatment Goals Short Term Goals Pt will participate in further evaluation of word recall and visuospatial skills, particularly related to reading and writing. Pt will verbalize understanding of strategies to improve oral communication in presence of possible hearing loss. Refractory Technician Goals Pt will use compensatory strategies as needed to visually scan for reading and writing skills. Pt will demonstrate word recall ability sufficient to participate effectively in conversation related to medical care and ADLs, using compensatory strategies as needed. Using compensatory listening strategies as needed, the pt will demonstrate auditory comprehension sufficient to participate effectively in conversation related to medical care and ADLs.
--- NOTE | 2020-02-01 16:21 | CM.DANOTE ---
DCP/Assessment: Reviewed chart. Patient is a 54yrold female admitted to . with stroke like symptoms. Primary payor is 1)Medicare. Patient currently without PCP. Provider/Dr. Tavares requesting MISSILE AND MISSILE CHECKOUT TECHNICIAN see patient for assistance with medications and PCP. Met with patient explained role. Patient reports that she has not seen provider since Dr. Morales left [facility] approximately 3yrs ago. Patient currently on home 02 and reports that she does not follow up with anyone for that, has concentrator and portable tank that she refills. Patient reports that she previously had medicaid which covered her medications. Patient no longer qualifies for Medicaid and stop taking her medications because she could not afford them. Patient inquiring about replacing current medications with ones that are on [facility] $4.00 list. Provided list to Dr. Tavares and she reports that she will coordinate medications from list. Patient expected to d/c today. Asked RN to fax scripts to [facility] when they become available. Placed call to [facility] to check on new patient appointments. Appointment made for patient with Effie Woodard on Friday02-09-20 at 10:00am and June 15 at 2:00pm. RN given both appointments to put on d/c instructions. In addition, provided Dr. Tavares with hospital f/u appointment. Patient denies further d/c planning needs and reports that she does have ride home. Patient with visual deficits and instructed not to drive. It is also recommended that patient f/u with outpatient therapy due to stroke. Patient agreeable. P: Home today. Patient anxious this afternoon and wants to leave. Anticipate that this is due to patient wanting to smoke. Encouraged patient to not smoke and make her follow up appointment on 02-09-20 with Effie Woodard. LEONORA Millard Discharge Planning/Care Management CM Discharge Assessment Start: 02/01/20 16:17 Freq: Status: Active Protocol: Document 02/01/20 16:17 KJS (Rec: 02/01/20 16:21 KJS [id number]) Discharge Planning Assessment Assigned Automobile Rental Agent LEONORA Millard Contact Information Katelyn Cornejo (daughter) Advance Directives? No History Provided By Patient,Medical Record Prior Living Arrangements House Household Members children Type of transporation used prior to Relies on Others admit Independent with ADL's Yes Is patient alert and oriented? Yes Caregiver for Another No Comment None needed at this time but patient does have access to DME if needed. Barriers to Discharge No Discharge Plan Home Community Services Oxygen Therapy Transportation Arrangement Friend/family can provide transport. Whiteboard Updated in Patient Room with Yes name and ext. # of Automobile Rental Agent Review Status In Process Next Review Type Continued Stay Review
[2020-02-01] MEDS: METFORMIN HCL 500 MG TABLET PO (16:50)
--- NOTE | 2020-02-01 18:14 | PC.NURSE ---
Discharge Note- Patient discharged home. Discharge instuructions and education reviewed with patient and signed. IV line removed and Tele removed. Patient packed up all persaonl belingings. Patient left via wheelchair to private car with all personal belongings.
--- NOTE | 2020-02-02 17:15 | P.DS_ITS ---
History of Present Illness History of Present Illness Date Patient Seen: 02/02/20 Chief complaint: BLIND SPOT LEFT EYE SHARP PAIN TOP HEAD Narrative: Miss Jazmin Barragan is a 54-year-old female with a past medical history significant for hypertension, diabetes type 2, COPD on home oxygen 2 L and dyslipidemia who presents to the hospital with acute visual loss. The patient reports right-sided headache at the base of the occiput and the top of the head for which she was taking Tylenol and Excedrin migraine with relief. The patient was driving to the store to get more medication at approximately noon when she noticed that she would lose sight of oncoming traffic which would reappear in her peripheral vision. Patient also reports that she had left arm numbness for 2 days. She has diabetic neuropathy of both lower extremities and does not appreciate a worsening of left-sided numbness. She reports no dizziness or ataxia. The patient has a history of hypertension hyperlipidemia diabetes for which she stopped her medications approximately 1 year ago. She has continued to use her Combivent inhaler and continuous home O2. The patient does complain of chills and occasional night sweats. Denies complaints of chest pain though she does feel occasional heart palpitations. She has been previously been told that she is approaching end-stage lung disease with marked exertional dyspnea and endorses that frequently she cannot make it to the bathroom without having to stop to catch her breath. Denies complaints of abdominal pain though she has had nausea without vomiting over the last couple days. She denies complaints of urinary symptoms with no burning, urgency, frequency or hematuria. She reports no change in bowel habits. Upon arrival the ER the patient is afebrile with a temperature of 98.6?, tachycardic at 117 and hypertensive 187/109 with respiratory rate of 25 saturating 94% on 2 liters/minute nasal cannula. CT angiogram of the head finds a subacute stroke in the right occipital area measuring 3.6 x 2.6 with mild mass effect, carotids are normal in caliber and course. A 12 lead EKG finds sinus tachycardia with a ventricular rate of 101 without ectopy or block, no ST or T- wave changes. On laboratory analysis the patient has white count of 10.4, hemoglobin of 16.7, hematocrit of 40.5 and platelets of 214. Her PT is 11.4 with an INR 1.0 and a PTT of 29. Electrolytes all within normal limits she has a BUN of 14 and creatinine 0.71. Her nonfasting glucose is 230. She has a total bilirubin of 0.4, AST 24, ALT 21 and alkaline phosphatase 124. She has a total CK of 34 troponin that is negative and less than 0.012. The patient received aspirin 324 mg in the emergency room and dose of metoprolol 5 mg IV for hypertension. Patient is admitted to the medicine service for CVA. Patient History Discharge Providers Provider Date of admission: 02/01/20 10:53 Discharge Date: 02/01/20 Consults: 01/31/20 22:48 Consult to Dietitian, Adult Routine Comment: Reason For Exam: Type 2 diabetic with hyperglycemia and stroke Consult to Discharge Planning Routine Comment: Consult to Occupational Therapy Evaluate & Treat Comment: Right occipital CVA Physician Instructions: Evaluate and treat Consult to Physical Therapy Evaluate & Treat Comment: Right occipital CVA Physician Instructions: Evaluate and Treat Consult to Speech Therapy Evaluate & Treat Comment: Physician Instructions: Evaluate and treat 01/31/20 22:58 Consult to Respiratory Therapy Evaluate & Treat Comment: COPD, home O2 2 liters/minute, goal 88% to 92% Physician Instructions: Evaluate and treat 02/01/20 07:10 Consult to BIT SHARPENER OPERATOR - Rn Residential Routine Comment: Patient needs Medication assistance, stopped r/t $ BIT SHARPENER OPERATOR Consult: [facility] Res Need Discharge provider: Mireille Tavares MD Summary Hospital Course Discharge Diagnosis: 1. Acute right occipital infarct 2. Hypertension 3. Chronic respiratory failure 4. Hyperlipidemia 5. Diabetic polyneuropathy 6. Type 2 diabetes Hospital Course: Patient was admitted to the hospital following visual loss. CT a confirmed right occipital infarct. MRI confirmed the same. Patient had a cardiac echo during her hospital stay which showed no evidence of embolic focus. The patient had been off her medications as she could not afford them. She was given the [employer] 4 dollar patient medication list and meds were represcribed for her. She also was given a follow-up appointment with the [facility] for outpatient evaluation. The patient had a subtle visual field cut. She had no other focal findings. She was deemed appropriate for discharge and arrangements were made for her to be discharged home. Status at Discharge Cognitive/behavioral status at discharge: oriented Functional status at discharge: independent ambulation Overall status at discharge: patient is back to baseline Time Spent with Patient Time spent: Less than 30 minutes Exam Vital Signs (past 8 hours): Oxygen Delivery Method Nasal Cannula Oxygen Flow Rate 2 Narrative Exam Narrative: Pleasant female in no obvious distress HEENT: Normocephalic atraumatic, extraocular muscles are intact, visual ashraf revealed a left visual field cut strength is symmetric and equal, sensation is grossly intact reflexes are equal, gait is Not assessed Lungs: Clear to auscultation Cardiac exam: Regular rate and rhythm normal S1-S2 Abdomen: Soft nontender nondistended Extremities: No Objective Labs Result Diagrams: 01/31/20 19:45 02/01/20 05:22 Discharge Plan Discharge Plan Patient Disposition: Home Discharge comment: F/U at [facility] for New Patient Appointment Discharge orders & Medications Prescriptions: New metformin [Glucophage] 500 mg Tablet 500 mg PO 0800,1700 Qty: 60 RF: 0 lisinopril 20 mg Tablet 20 mg PO DAILY Qty: 30 RF: 0 aspirin 325 mg tablet 325 mg PO DAILY Qty: 30 RF: 0 atorvastatin 40 mg tablet 40 mg PO BEDTIME Qty: 30 RF: 0 Continued Combivent Respimat 4 GM mist 1 puff INH Q6H Qty: 1 RF: 12 Diet/Activity/Treatments Diet: Carb-consistent/Diabetic, Low-sodium and Low-cholesterol Activity: as tolerated Visit Report/Discharge Packet Instructions: Left-side Stroke Visit Report Forms: Patient Portal/API, Stroke Signs & Symptoms Discharges patient from system. Discharge Date/Time: 02/01/20 18:05 Quality VTE Deep Vein Thrombosis/Pulmonary Embolism Present on Admission: No
== END 2020-02-01 18:05 | disposition home or self-care (01) | DRG 65 ==
LOC: ED 21:59 → AC 22:11
PROVIDERS: Admitting Provider Nurse Practitioner Adult Health; Emergency Provider Emergency Medicine; Referring Provider Emergency Medicine; Visit Provider Nurse Practitioner Adult Health
DX: I63.439 Cerebral infarction due to embolism of unspecified posterior cerebral artery (principal); J96.10 Chronic respiratory failure, unspecified whether with hypoxia or hypercapnia; R51 Headache; R20.0 Anesthesia of skin; H53.9 Unspecified visual disturbance; E11.65 Type 2 diabetes mellitus with hyperglycemia; E11.40 Type 2 diabetes mellitus with diabetic neuropathy, unspecified; T38.3X6A Underdosing of insulin and oral hypoglycemic [antidiabetic] drugs, initial encounter; Z91.120 Patient's intentional underdosing of medication regimen due to financial hardship; J44.9 Chronic obstructive pulmonary disease, unspecified; Z99.81 Dependence on supplemental oxygen; F17.210 Nicotine dependence, cigarettes, uncomplicated; I10 Essential (primary) hypertension; E78.5 Hyperlipidemia, unspecified
CPT/HCPCS: 36415; 70496; 70498; 70548; 70553; 71045; 80048; 80053; 80061; 81003; 82550; 82962; 83036; 83735; 84443; 84484; 85025; 85610; 85730; 90471; 90656; 92523; 92610; 93005; 93010; 93306; 94640; 94762; 96361; 96374; 97161; 97165; 97530; 99285; G0378; J1650; J2405; J7613; Q2038; Q9967

== ENCOUNTER 2020-04-06 15:17 | Emergency (ER) | payer MEDICARE, SELFPAY ==
[2020-01-31 22:34] VITALS: BMI 31.6
[2020-04-06 15:20] VITALS: BP 140/84; PULSE 99; RESP 25; TEMP 36.9; O2SAT 94; BMI 32.4
--- NOTE | 2020-04-06 15:39 | ED.HA ---
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 She states she went to bed around 11AM last night, patient stated she felt a sharp stabbing right-sided occipital pain that awoke her from sleep, unsure of time. Patient states when she woke up this morning she developed a dull aching 5/10 pain with ?squiggly lines in her vision. She states these lines are school early length of light and occasionally feeling like the things that she is seeing S quickly as well. She does have a history of migraines but this feels different. She also reports nausea without vomiting. Patient states she had recent CVA on 01/31/2020 with residual left lower quadrant vision loss. Patient denies any fevers, chills, worsening shortness of breath, chest pain, abdominal pain, vomiting, diarrhea, or any other concerns. She states she takes aspirin daily. Patient reports she usually has squiggly lines of light in her periphery before her migraines in the past. Related Data Previous Rx's Medication Instructions Recorded Combivent Respimat 1 puff INH Q6H #1 inh 11/06/16 aspirin 325 mg PO DAILY #30 tab 02/01/20 atorvastatin 40 mg tablet 40 mg PO BEDTIME #90 tab 03/29/20 lisinopril 20 1 tab PO DAILY #90 tab 03/29/20 mg-hydrochlorothiazide 12.5 mg tablet metformin 1,000 mg tablet 1,000 mg PO BID #180 tab 03/29/20 nifedipine 30 mg tablet,extended 30 mg PO DAILY #90 tab 03/29/20 release pioglitazone 15 mg tablet 15 mg PO DAILY #90 tab 03/29/20 glipizide 2.5 mg tablet, extended 2.5 mg PO BID #180 tab 04/06/20 release 24 hr metoclopramide HCl 10 mg PO Q6H PRN #14 tab 04/06/20 Allergies Allergy/AdvReac Type Severity Reaction Status Date / Time azithromycin Allergy Severe ARM PAIN Verified 04/06/20 15:30 AND FACIAL REDNESS DURING INFUSION naproxen Allergy Severe Hives Verified 04/06/20 15:30 penicillin G Allergy Severe RASH Verified 04/06/20 15:30 codeine Allergy Mild RASH Verified 04/06/20 15:30 hydrocodone Allergy Mild RASH Verified 04/06/20 15:30 Review of Systems <DEBBY Rodriguez - Last Filed: 04/06/20 20:37> Review of Systems Narrative: REVIEW OF SYSTEMS: GENERAL: Denies fever or chills. HENT: No head trauma, reports headache, see HPI. EYES: Reports clearly lines in vision, see HPI. CARDIOVASCULAR: No chest pain or syncope. RESPIRATORY: No shortness of breath or cough. GASTROINTESTINAL: No nausea, vomiting, diarrhea, or constipation. GENITOURINARY: No flank pain or dysuria. MUSCULOSKELETAL: No pain, weakness, or deformities. INTEGUMENTARY: No rash, lesions, or pruritus. NEURO: No numbness, tingling, memory loss, or confusion. PSYCH: No behavior or mood changes. Patient History <DEBBY Rodriguez - Last Filed: 04/06/20 20:37> Medical History Cardiac arrhythmia (Acute) Chronic obstructive pulmonary disease (10/14/14) Diabetes (Acute) Diabetic neuropathy (Acute) Dyslipidemia (Acute) End stage chronic obstructive pulmonary disease (Acute) Hypertension (Acute) Surgical History History of (Acute) History of local excision of skin lesion (Acute) Family History Father Alcoholic cirrhosis Mother Age: 77 Diabetes mellitus type II, controlled CVA (cerebral infarction) Social History household members: children Smoking Status: Current every day smoker alcohol intake: former Smoking Status: Current every day smoker alcohol intake frequency: holidays/special occasions only Substance Use Type: does not use Exam <DEBBY Rodriguez - Last Filed: 04/06/20 20:37> Initial Vital Signs Initial Vital Signs: Vital Signs Temperature 98.5 F 04/06/20 15:20 Pulse Rate 99 H 04/06/20 15:20 Respiratory Rate 25 H 04/06/20 15:20 Blood Pressure 140/84 04/06/20 15:20 Pulse Oximetry 94 04/06/20 15:20 PHYSICAL EXAMINATION: GENERAL: Well groomed, alert, and cooperative. Wearing home oxygen. Answers questions promptly and appropriately. Vital signs noted. HENT: Normocephalic, atraumatic. Ear canals patent. Oral mucosa is pink and moist. EYES: PERLLA, EOMI, Conjunctiva pink, sclera white, no periorbital swelling. CHEST: Normal to inspection and without deformities. CARDIOVASCULAR: S1 and S2 sounds normal. Regular rate and rhythm, no murmurs, clicks, or bruits. No pedal edema. RESPIRATORY: Normal respiratory rate, trachea midline, airway patent. No stridor, nasal flaring or accessory muscle use. Lungs lungs with slight diffuse expiratory wheezes. GASTROINTESTINAL: Bowel sounds normoactive. Abdomen is soft and non-tender. No organomegaly. MUSCULOSKELETAL: Normal gait and coordination. Equal tone and mass bilaterally. EXTREMITIES: CMS intact. Moves all extremities. SKIN: Warm, dry, soft, appropriate color for ethnicity. No lesions, rashes, or wounds. NEURO: Alert and Oriented X 3. Good coordination. No ataxia, or sensory deficits, or cognitive issues. NIH score of 1 (due to permanent changes of left-sided vision loss). PSYCH: Appropriate affect and mood. <Duy Harrell DO - Last Filed: 04/09/20 00:08> Initial Vital Signs Initial Vital Signs: Vital Signs Temperature 98.5 F 04/06/20 15:20 Pulse Rate 99 H 04/06/20 15:20 Respiratory Rate 25 H 04/06/20 15:20 Blood Pressure 140/84 04/06/20 15:20 Pulse Oximetry 94 04/06/20 15:20 Scores <DEBBY Rodriguez - Last Filed: 04/06/20 20:37> NIH Stroke Scale Level of Conciousness: Alert, keenly responsive Ask month/age: Answers both questions correctly. Open/close eyes, close hand: Performs both tasks correctly Best gaze horizontal: Normal Visual ashraf: Partial hemianopia (This is patient's norm from last CVA. ) Facial palsy: Normal symetrical movement Left arm drift: No drift for full 10 sec Right arm drift: No drift for full 10 sec Left leg drift: No drift for full 10 sec Right leg drift: No drift for full 10 sec Limb ataxia: Absent Sensory on face/arms/legs: Normal, no sensory loss Best language: No aphasia, normal Dysarthria: Normal Extinction or inattention: No abnormality Total NIH Stroke scale score: 1 Course <DEBBY Rodriguez - Last Filed: 04/06/20 20:37> Course Course Narrative: 1704: Patient reports significantly reduced pain, no visual disturbances at this time Orders Ordered: Discontinued Medications Diphenhydramine HCl (Benadryl) 25 mg IV NOW ONE Stop: 04/06/20 15:54 Last Admin: 04/06/20 15:59 Dose: 25 mg Documented by: LEAH Sodium Chloride (Normal Saline 0.9%) 1,000 mls @ 150 mls/hr IV CONT SHANIQUE Last Infusion: 04/06/20 17:16 Dose: 0 mls/hr Documented by: Admin: 04/06/20 15:59 Dose: 150 mls/hr Documented by: LEAH Metoclopramide HCl (Reglan) 10 mg IV NOW ONE Stop: 04/06/20 15:50 Last Admin: 04/06/20 15:59 Dose: 10 mg Documented by: LEAH Vital Signs Vital signs: Vital Signs - 8 hr 04/06/20 15:20 04/06/20 15:50 04/06/20 17:22 Temperature 98.5 F Pulse Rate 99 H 81 84 Respiratory Rate 25 H 25 H 19 Blood Pressure 140/84 Blood Pressure [Left Arm] 108/72 115/85 Pulse Oximetry 94 98 98 <Duy Harrell DO - Last Filed: 04/09/20 00:08> Orders Ordered: Discontinued Medications Diphenhydramine HCl (Benadryl) 25 mg IV NOW ONE Stop: 04/06/20 15:54 Last Admin: 04/06/20 15:59 Dose: 25 mg Documented by: LEAH Sodium Chloride (Normal Saline 0.9%) 1,000 mls @ 150 mls/hr IV CONT SHANIQUE Last Infusion: 04/06/20 17:16 Dose: 0 mls/hr Documented by: Admin: 04/06/20 15:59 Dose: 150 mls/hr Documented by: LEAH Metoclopramide HCl (Reglan) 10 mg IV NOW ONE Stop: 04/06/20 15:50 Last Admin: 04/06/20 15:59 Dose: 10 mg Documented by: LEAH Vital Signs Vital signs: Vital Signs - 8 hr 04/06/20 15:20 04/06/20 15:50 04/06/20 17:22 Temperature 98.5 F Pulse Rate 99 H 81 84 Respiratory Rate 25 H 25 H 19 Blood Pressure 140/84 Blood Pressure [Left Arm] 108/72 115/85 Pulse Oximetry 94 98 98 MDM - Headache <Oneyda ValleDEBBY - Last Filed: 04/06/20 20:37> Medical Records Attestation: I reviewed the patient's medical records. Lab Data Attestation: I reviewed the patient's lab results. Result diagrams: 04/06/20 15:50 04/06/20 15:50 Labs: Lab Results 04/06/20 04/06/20 04/06/20 Range/Units 15:50 15:50 15:50 WBC 13.1 H (4.5-11.0) X10^3/uL RBC 5.00 (4.0-5.2) X10^6/uL Hgb 15.4 (12.0-16.0) g/dL Hct 45.3 (36-46) % MCV 90.6 (80-100) fL MCH 30.8 (26-34) PG MCHC 34.0 (30-36) % RDW 13.9 (11.6-14.8) % Plt Count 262 (150-400) X10^3/uL Neut % (Auto) 52.3 (50-75) % Lymph % (Auto) 39.7 (25-40) % [place] % (Auto) 6.0 (3-14) % Eos % (Auto) 1.0 L (2-4) % Baso % (Auto) 1.0 (0-2) % Neut # (Auto) 6900 (4639-9578) /uL Lymph # (Auto) 5200 H (0505-7537) /uL [place] # (Auto) 800 (0-900) /uL Eos # (Auto) 100 (0-450) /uL Baso # (Auto) 100 (0-100) /uL PT 11.0 (10.1-12.7) SECONDS INR 1.0 (0.9-1.3) APTT 32 D (26.4-36.2) SECONDS Sodium 140 (137-145) mmol/L Potassium 4.1 (3.4-5.1) mmol/L Chloride 104 (98-107) mmol/L Carbon Dioxide 28 (22-32) mmol/L BUN 18 H (7-17) mg/dL Creatinine 0.62 (0.52-1.04) mg/dL Estimated GFR > 60.0 (>60) mL/min BUN/Creatinine Ratio 29.0 H (6-22) Glucose 117 H (70-100) mg/dL Calcium 9.8 (8.4-10.2) mg/dL Point of Care Testing Glucose POC [address] scan - head: Radiologist's Impression: [address] [address] [address] Scan Report Signed Patient: Jazmin Barragan [facility]#: [id number] : 1965Acct:[id number] Age/Sex: 54 / FDate of Service: 04/06/20 Loc: ED Accession Number: [id number] Procedure: CT head/brain wo con Ordering Provider: Oneyda Valle PROCEDURE: CT HEAD/BRAIN WO CON INDICATIONS: R head px at a woken patient from sleep, history of CVA TECHNIQUE: Noncontrast 4.5 mm thick angled axial sections acquired from the foramen magnum to the vertex, with coronal and sagittal reformats. For radiation dose reduction, the following was used: automated exposure control, adjustment of mA and/or kV according to patient size. COMPARISON: [facility], MR, MR STROKE, 02/01/2020, 10:37. [facility], CT, CT ANGIO HEAD AND NECK, 01/31/2020, 19:53. FINDINGS: Image quality: Excellent. CSF spaces: Basal cisterns are patent. No extra-axial fluid collections. Ventricles are normal in size and shape. Brain: No midline shift. No intracranial masses or hemorrhage. Wyatt-white matter interface is normal. Left parietal occipital infarct as previously noted on 01/31/20. Skull and face: Calvarium and visualized facial bones are intact, without suspicious lesions. Sinuses: Visualized sinuses and mastoids are clear. IMPRESSION: 1. No acute intracranial process. Dictated by: Vanessa Mathew M.D. on 04/06/2020 at 16:15 Approved by: Vanessa Matehw M.D. on 04/06/2020 at 16:16 ECG Data Interpretation: Normal sinus rhythm, rate 85, W[place] interval 170, QTC 442. Right axis deviation. No ST elevation or ST depression. V5 with significant artifact. EKG also viewed by Dr. Harrell per protocol. MDM Narrative Medical decision making narrative: 54-year-old female presents emergency department for right-sided occipital headache a progressed to a left-sided dull aching headache. Differential includes migraine versus post CVA side effects/symptoms due to description of visual disturbances, decreased symptoms after administration of pain medication, duration since onset of symptoms, resolving symptoms since this morning, lack of other concerning symptoms. Less likely subarachnoid hemorrhage due to spontaneous resolution of pain, negative head CT-with longer duration since onset, no focal neurological deficit, resolving pain with medications Less likely additional CVA as patient has a NIH score of 1 which is patient's norm, this is due to left-sided vision loss noted on previous stroke from 01/2020. No focal neurological deficits, patient is alert report his pain which is resolving with medications. Patient was encouraged to follow up with her primary care provider in the next week for further evaluation. Strict return precautions given for new or worsening symptoms. Patient agreed to plan of care verbalized understanding. <Duy Harrell, DO - Last Filed: 04/09/20 00:08> Lab Data Labs: Lab Results 04/06/20 04/06/20 04/06/20 Range/Units 15:50 15:50 15:50 WBC 13.1 H (4.5-11.0) X10^3/uL RBC 5.00 (4.0-5.2) X10^6/uL Hgb 15.4 (12.0-16.0) g/dL Hct 45.3 (36-46) % MCV 90.6 (80-100) fL MCH 30.8 (26-34) PG MCHC 34.0 (30-36) % RDW 13.9 (11.6-14.8) % Plt Count 262 (150-400) X10^3/uL Neut % (Auto) 52.3 (50-75) % Lymph % (Auto) 39.7 (25-40) % [place] % (Auto) 6.0 (3-14) % Eos % (Auto) 1.0 L (2-4) % Baso % (Auto) 1.0 (0-2) % Neut # (Auto) 6900 (7010-1953) /uL Lymph # (Auto) 5200 H (0808-0662) /uL [place] # (Auto) 800 (0-900) /uL Eos # (Auto) 100 (0-450) /uL Baso # (Auto) 100 (0-100) /uL PT 11.0 (10.1-12.7) SECONDS INR 1.0 (0.9-1.3) APTT 32 D (26.4-36.2) SECONDS Sodium 140 (137-145) mmol/L Potassium 4.1 (3.4-5.1) mmol/L Chloride 104 (98-107) mmol/L Carbon Dioxide 28 (22-32) mmol/L BUN 18 H (7-17) mg/dL Creatinine 0.62 (0.52-1.04) mg/dL Estimated GFR > 60.0 (>60) mL/min BUN/Creatinine Ratio 29.0 H (6-22) Glucose 117 H (70-100) mg/dL Calcium 9.8 (8.4-10.2) mg/dL Point of Care Testing Glucose POC 109 Discharge Plan Departure Patient Disposition: Home Clinical Impression: Visual field loss, post-stroke Migraine Qualifiers: Migraine type: with aura Status migrainosus presence: without status migrainosus Intractability: not intractable Qualified Code(s): G43.109 - Migraine with aura, not intractable, without status migrainosus Discharge Date/Time: 04/06/20 17:27 Instructions: DI for Migraine Activity Restrictions/Additional Instructions: Thank you for entrusting me with your care today. As discussed, your head CT, EKG, and laboratory work are non-remarkable. I suspect her symptoms are most likely caused by a migraine. I prescribed you Reglan (metoclopramide). I recommend taking this medication, 25 mg of Benadryl, and 500 to a 1000 mg of Tylenol before bed tonight. Please call your primary care provider tomorrow and schedule an appointment for follow-up. Return emergency department for any new or worsening symptoms such as severe pain, uncontrollable vomiting, vision loss, double vision, limb weakness, facial droop, difficulty speaking, or any other new or concerning symptoms. Prescriptions: New metoclopramide HCl 10 mg tablet 10 mg PO Q6H PRN (Reason: nausea and vomiting) Qty: 14 RF: 0 No Action Combivent Respimat 4 GM mist 1 puff INH Q6H Qty: 1 RF: 12 atorvastatin 40 mg tablet 40 mg PO BEDTIME Qty: 90 RF: 1 nifedipine 30 mg tablet extended release 30 mg PO DAILY Qty: 90 RF: 1 metformin 1,000 mg tablet 1,000 mg PO BID Qty: 180 RF: 1 lisinopril-hydrochlorothiazide 20-12.5 mg tablet 1 tab PO DAILY Qty: 90 RF: 1 pioglitazone [Actos] 15 mg tablet 15 mg PO DAILY Qty: 90 RF: 1 glipizide 2.5 mg tablet extended release 24hr 2.5 mg PO BID Qty: 180 RF: 1 aspirin 325 mg tablet 325 mg PO DAILY Qty: 30 RF: 0 Referrals: Desmond Mi DO [Primary Care Provider] - <Duy Harrell DO - Last Filed: 04/09/20 00:08> Cosign ED Attending Cosignature Attestation: I was immediately available in the department for consultation. This documentation has been reviewed and I agree with assessment and plan. Supervised by Duy Harrell DO
[2020-04-06 15:50] VITALS: BP 108/72; PULSE 81; RESP 25; O2SAT 98
[2020-04-06 15:57] LABS: Add Manual Diff / Slide Review NO; Basophils Absolute Auto 100 /uL (0-100); Eosinophils Absolute Auto 100 /uL (0-450); Hematocrit 45.3 % (36-46); Hemoglobin 15.4 g/dL (12.0-16.0); Lymphocytes Absolute Auto 5200 /uL (1100-4500); Lymphocytes Percent Auto 39.7 % (25-40); Mean Corpuscular Hemoglobin 30.8 PG (26-34); Mean Corpuscular Volume 90.6 fL (80-100); Monocytes Absolute Auto 800 /uL (0-900); Neutrophils Absolute Auto 6900 /uL (1500-7000); Neutrophils Percent Auto 52.3 % (50-75); Platelet Count 262 X10^3/uL (150-400); Red Cell Distribution Width 13.9 % (11.6-14.8); White Blood Cell Count 13.1 X10^3/uL (4.5-11.0)
[2020-04-06] MEDS: SODIUM CHLORIDE 0.9% 1,000 ML 150 ML IV (15:59)
[2020-04-06] MEDS: diphenhydrAMINE 50 MG/ML VIAL 25 MG IV (15:59)
[2020-04-06] MEDS: METOCLOPRAMIDE 10 MG/2 ML INJ IV (15:59)
[2020-04-06 16:08] LABS: PTT Partial Thromboplastin Tim 32 SECONDS (26.4-36.2)
[2020-04-06 16:10] LABS: Blood Urea Nitrogen 18 mg/dL (7-17); Calcium 9.8 mg/dL (8.4-10.2); Carbon Dioxide 28 mmol/L (22-32); Chloride 104 mmol/L (98-107); Estimated Glomerular Filt Rate > 60.0 mL/min (>60); Glucose 117 mg/dL (70-100); HEMOLYSIS 24 (0-50); Potassium 4.1 mmol/L (3.4-5.1); Sodium 140 mmol/L (137-145)
--- NOTE | 2020-04-06 16:34 | PC.NURSE ---
pt reports that her vision loss is from a prior CVa in January. both eyes affected
--- NOTE | 2020-04-06 17:17 | PC.NURSE ---
pt c/o ruq pain. reports history of gallstones. ultrasound done. surgery consult
[2020-04-06 17:22] VITALS: BP 115/85; PULSE 84; RESP 19; O2SAT 98
== END 2020-04-06 17:27 | disposition home or self-care (01) ==
PROVIDERS: Emergency Provider Nurse Practitioner; PCP Family Medicine
DX: G43.109 Migraine with aura, not intractable, without status migrainosus (principal); I69.398 Other sequelae of cerebral infarction
CPT/HCPCS: 36415; 70450; 80048; 82962; 85025; 85610; 85730; 93005; 96361; 96374; 96375; 99285; J1200; J2765

== ENCOUNTER → 2020-08-02 10:59 | Outpatient (CLI) | payer MEDICARE, SELFPAY ==
[2020-01-31 22:34] VITALS: BMI 31.6
[2020-08-02 11:53] LABS: Hemoglobin A1C% w Est Avg Glu 6.1 % (4.0-6.0)
[2020-08-02 12:37] LABS: Cholesterol 157 mg/dL (140-199); HDL Cholesterol 55 mg/dL (40-60); LDL Cholesterol Calculated 71 mg/dL (<100); Triglycerides 155 mg/dL (35-150)
[2020-08-03 05:15] LABS: Creatinine Urine Random 81.5 mg/dL
[2020-08-03 05:17] LABS: Microalbumi Creatinin Ratio Ur 13.4 ug/mg CR (<30); Microalbumin Urine Random 1.1 mg/dL (0-1.6)
== END ==
PROVIDERS: PCP Family Medicine; Referring Provider Family Medicine; Visit Provider Family Medicine
DX: E11.9 Type 2 diabetes mellitus without complications (principal); I10 Essential (primary) hypertension; Z13.1 Encounter for screening for diabetes mellitus; E78.5 Hyperlipidemia, unspecified
CPT/HCPCS: 36415; 80061; 82043; 82570; 83036

== ENCOUNTER 2020-08-31 13:32 | Inpatient (IN) | payer MEDICARE, SELFPAY ==
[2020-01-31 22:34] VITALS: BMI 31.6
[2020-08-31] VITALS (13 sets, daily range): BP systolic 121–142; BP diastolic 74–88; PULSE 86–115; RESP 16–35; TEMP 36.4–37.2; O2SAT 95–98; BMI 31.6; BMI 31.4
[2020-08-31 13:58] LABS: Add Manual Diff / Slide Review NO; Basophils Absolute Auto 100 /uL (0-100); Eosinophils Absolute Auto 0 /uL (0-450); Eosinophils Percent Auto 0.2 % (2-4); Hemoglobin 15.1 g/dL (12.0-16.0); Lymphocytes Absolute Auto 4600 /uL (1100-4500); Lymphocytes Percent Auto 33.3 % (25-40); Mean Corpuscular HGB Conc 33.6 % (30-36); Mean Corpuscular Hemoglobin 30.9 PG (26-34); Mean Corpuscular Volume 91.9 fL (80-100); Monocytes Absolute Auto 600 /uL (0-900); Monocytes Percent Auto 4.3 % (3-14); Neutrophils Absolute Auto 8400 /uL (1500-7000); Neutrophils Percent Auto 61.2 % (50-75); Platelet Count 269 X10^3/uL (150-400); Red Cell Distribution Width 13.9 % (11.6-14.8); White Blood Cell Count 13.7 X10^3/uL (4.5-11.0)
--- NOTE | 2020-08-31 14:02 | ED.GENADULT ---
HPI - General Adult General Chief complaint: Dizziness Stated complaint: extreme dizziness, nausea and vomiting Time Seen by Provider: 08/31/20 13:38 Source: patient and family Mode of arrival: Ambulatory Limitations: no limitations History of Present Illness HPI narrative: 54-year-old female with a prior history of strokes. States her last stroke was earlier this year. She states that at that time she had visual disturbances. She does not currently have any change in her visual disturbance. She is here for evaluation of approximately 48 hours of dizziness. She does describe this as a room spinning sensation however this is much less than just an unsteadiness. She does think that it is positional especially when she turns her head. She denies any other associated symptoms at the time. She is not having any speech issues. No numbness or tingling arms or legs. No chest pain palpitations or shortness of breath. Has never had anything like this in the past. Has not taken anything for symptoms prior to arrival. She is taking all of her other medications as directed. Related Data Home Medications Medication Instructions Recorded Confirmed nifedipine 60 mg PO DAILY 08/31/20 08/31/20 Previous Rx's Medication Instructions Recorded aspirin 325 mg PO DAILY #30 tab 02/01/20 Disabled [address]ing Permit #1 each 04/25/20 lorazepam 0.5 mg tablet 0.5 mg PO BID PRN #30 tab 05/01/20 atorvastatin 40 mg tablet 40 mg PO BEDTIME #90 tab 08/01/20 glipizide 5 mg tablet, extended 5 mg PO DAILY #90 tab 08/01/20 release 24 hr lisinopril 20 1 tab PO DAILY #90 tab 08/01/20 mg-hydrochlorothiazide 12.5 mg tablet metformin 1,000 mg tablet 1,000 mg PO BID #180 tab 08/01/20 pioglitazone 15 mg tablet 15 mg PO DAILY #90 tab 08/01/20 Allergies Allergy/AdvReac Type Severity Reaction Status Date / Time azithromycin Allergy Severe ARM PAIN Verified 05/01/20 16:15 AND FACIAL REDNESS DURING INFUSION naproxen Allergy Severe Hives Verified 05/01/20 16:15 penicillin G Allergy Severe RASH Verified 05/01/20 16:15 codeine Allergy Mild RASH Verified 05/01/20 16:15 hydrocodone Allergy Mild RASH Verified 05/01/20 16:15 Review of Systems Constitutional Constitutional: Denies fever(s) and Denies headache(s) Eyes Eyes: Denies change in vision ENT Ears, Nose, Mouth, and Throat: Reports vertigo, Reports dizziness, Denies headache(s), Reports disequilibrium, Denies sinus pain and Denies sinus pressure Cardiovascular Cardiovascular: Denies chest pain, Denies syncope and Denies dyspnea Respiratory Respiratory: Denies dyspnea Gastrointestinal Gastrointestinal: Denies abdominal pain, Reports nausea and Reports vomiting Genitourinary Genitourinary: Denies dysuria Genitourinary: Denies dysuria Musculoskeletal Musculoskeletal: Denies arthralgias, Denies myalgias and Denies numbness Integumentary/Breasts Skin/Breast: Denies lesions and Denies rash Neurologic Neurologic: Denies behavioral changes, Denies confusion, Reports vertigo, Reports dizziness, Denies syncope, Denies headache(s), Denies localized weakness, Denies numbness, Denies paresthesias and Reports disequilibrium Psychiatric Psychiatric: Reports anxiety, Denies behavioral changes and Denies confusion Hematologic/Lymphatic Hematologic/Lymphatic: Denies easy bleeding and Denies easy bruising Allergic/Immunologic Allergic/Immunologic: Denies urticaria Patient History Medical History Cardiac arrhythmia (Acute) Chronic obstructive pulmonary disease (10/14/14) Diabetes (Acute) Diabetic neuropathy (Acute) Dyslipidemia (Acute) End stage chronic obstructive pulmonary disease (Acute) Generalized anxiety disorder (Acute) Hypertension (Acute) Surgical History History of (Acute) History of local excision of skin lesion (Acute) Family History Father Alcoholic cirrhosis Mother Age: 77 Diabetes mellitus type II, controlled CVA (cerebral infarction) Social History household members: children Smoking Status: Current every day smoker alcohol intake: former Smoking Status: Current every day smoker alcohol intake frequency: holidays/special occasions only Substance Use Type: does not use Exam Initial Vital Signs Initial Vital Signs: Vital Signs Temperature 97.6 F 08/31/20 13:40 Pulse Rate 115 H 08/31/20 13:40 Respiratory Rate 22 08/31/20 13:40 Blood Pressure 137/84 08/31/20 13:40 Pulse Oximetry 96 08/31/20 13:40 Const General: cooperative and comfortable Limitations: mental status not altered HENMT Head: normal to inspection and normocephalic Resp Effort & Inspection: normal respiratory effort Auscultation: clear to auscultation bilaterally Cardio Rate: tachycardic Rhythm: regular rhythm Pulses: radial pulses present GI Inspection: non-distended Palpation: soft Skin Lesions: no lesions Rashes: no rashes Neuro General: patient alert, patient awake and patient oriented x3 Cranial Nerves: CN's II-XI intact bilaterally Cognition: normal cognition Speech: speech normal Motor: muscle tone normal throughout and strength 5/5 throughout Sensory Exam: no sensory deficits noted Extrem General: normal to inspection and capillary refill normal Psych Appearance: grossly normal and well kempt Scores GCS [place] coma scale eye opening: Spontaneous Sylvia coma scale verbal response: Orientated [place] coma scale motor response: Obey commands [place] coma scale total score: 15 NIH Stroke Scale Level of Conciousness: Alert, keenly responsive Ask month/age: Answers both questions correctly. Open/close eyes, close hand: Performs both tasks correctly Best gaze horizontal: Normal Visual ashraf: No visual loss Facial palsy: Normal symetrical movement Left arm drift: No drift for full 10 sec Right arm drift: No drift for full 10 sec Left leg drift: No drift for full 5 sec Right leg drift: No drift for full 5 sec Limb ataxia: Present in one limb (Left leg) Sensory on face/arms/legs: Normal, no sensory loss Best language: No aphasia, normal Dysarthria: Normal Extinction or inattention: No abnormality Total NIH Stroke scale score: 1 Course Orders Ordered: ED Orders 08/31/20 13:43 EKG-12 Lead Stat 08/31/20 13:55 Complete Blood Count AUTO DIFF Stat Comprehensive Metabolic Panel Stat Lipase Stat 08/31/20 14:02 CT head/brain wo con Stat Discontinued Medications Acetaminophen (Tylenol) 650 mg PO NOW ONE Stop: 08/31/20 15:13 Last Admin: 08/31/20 15:26 Dose: 650 mg Documented by: KBROTEM Sodium Chloride (Normal Saline 0.9%) 1,000 mls @ 1,000 mls/hr IV BOLUS ONE Stop: 08/31/20 15:01 Last Admin: 08/31/20 14:13 Dose: 1,000 mls/hr Documented by: JOHNATHAN Meclizine HCl (Antivert) 25 mg PO NOW ONE Stop: 08/31/20 14:03 Last Admin: 08/31/20 14:13 Dose: 25 mg Documented by: JOHNATHAN Nicotine (Nicoderm) 21 mg TOP NOW ONE Stop: 08/31/20 15:43 Ondansetron HCl (Zofran) 4 mg IV NOW ONE Stop: 08/31/20 14:03 Last Admin: 08/31/20 14:13 Dose: 4 mg Documented by: JOHNATHAN Vital Signs Vital signs: Vital Signs - 8 hr 08/31/20 13:40 08/31/20 13:49 08/31/20 14:00 Temperature 97.6 F Pulse Rate 115 H 102 H 103 H Respiratory Rate 22 35 H 19 Blood Pressure 137/84 Pulse Oximetry 96 96 95 08/31/20 14:05 08/31/20 14:35 08/31/20 15:00 Temperature Pulse Rate 98 H 89 88 Respiratory Rate 20 25 H 22 Blood Pressure 121/88 Pulse Oximetry 96 98 98 08/31/20 15:30 Temperature Pulse Rate 87 Respiratory Rate 22 Blood Pressure Pulse Oximetry 97 Medical Decision Making Medical Records Medical records reviewed: Yes I reviewed the patient's medical records. Lab Data Lab results reviewed: Yes I reviewed the patient's lab results. Result diagrams: 08/31/20 13:55 08/31/20 13:55 Labs: Lab Results 08/31/20 08/31/20 Range/Units 13:55 13:55 WBC 13.7 H (4.5-11.0) X10^3/uL RBC 4.90 (4.0-5.2) X10^6/uL Hgb 15.1 (12.0-16.0) g/dL Hct 45.0 (36-46) % MCV 91.9 (80-100) fL MCH 30.9 (26-34) PG MCHC 33.6 (30-36) % RDW 13.9 (11.6-14.8) % Plt Count 269 (150-400) X10^3/uL Neut % (Auto) 61.2 (50-75) % Lymph % (Auto) 33.3 (25-40) % [place] % (Auto) 4.3 (3-14) % Eos % (Auto) 0.2 L (2-4) % Baso % (Auto) 1.0 (0-2) % Neut # (Auto) 8400 H (1755-2785) /uL Lymph # (Auto) 4600 H (1446-1211) /uL [place] # (Auto) 600 (0-900) /uL Eos # (Auto) 0 (0-450) /uL Baso # (Auto) 100 (0-100) /uL Sodium 140 (137-145) mmol/L Potassium 3.6 (3.4-5.1) mmol/L Chloride 102 (98-107) mmol/L Carbon Dioxide 30 (22-32) mmol/L BUN 22 H (7-17) mg/dL Creatinine 1.07 H (0.52-1.04) mg/dL Estimated GFR 53.0 L (>60) mL/min BUN/Creatinine Ratio 20.6 (6-22) Glucose 182 H (70-100) mg/dL Calcium 9.6 (8.4-10.2) mg/dL Total Bilirubin 0.6 (0.2-1.3) mg/dL AST 27 (14-36) IU/L ALT 24 (<35) IU/L Alkaline Phosphatase 58 (38-126) U/L Total Protein 7.5 (6.3-8.2) g/dL Albumin 4.5 (3.5-5.0) g/dL Globulin 3.0 (1.7-4.1) g/dL Albumin/Globulin Ratio 1.5 (1.0-2.8) Lipase 62 (23-300) U/L Imaging Data CT scan - head: Radiologist's Impression: [place] [address] CT Scan Report Signed Patient: Jazmin Barragan [facility]#: [id number] : 1965Acct:[id number] Age/Sex: 54 / FDate of Service: 08/31/20 Loc: ED Accession Number: [id number] Procedure: CT head/brain wo con Ordering Provider: Harshad Aleman D.O. PROCEDURE: CT HEAD/BRAIN WO CON INDICATIONS: Vertigo and history of strokes TECHNIQUE: Noncontrast 4.5 mm thick angled axial sections acquired from the foramen magnum to the vertex, with coronal and sagittal reformats. For radiation dose reduction, the following was used: automated exposure control, adjustment of mA and/or kV according to patient size. COMPARISON: [facility], MR, MR STROKE, 02/01/2020, 10:37. [facility], CT, CT HEAD/BRAIN WO CON, 04/06/2020, 15:57. FINDINGS: Image quality: Excellent. CSF spaces: Basal cisterns are patent. No extra-axial fluid collections. Ventricles are normal in size and shape. Brain: No intracranial hemorrhage, mass, or mass effect. There is a new wedge-shaped area of hypoattenuation in the left cerebellar hemisphere with effacement of the elise-white matter junction consistent with an acute or subacute infarct. A moderate size region of encephalomalacia is redemonstrated within the right occipital lobe consistent with a prior infarct. There is also a small hypodensity in the right caudate head consistent with a prior lacunar infarct. Skull and face: Calvarium and visualized facial bones are intact, without suspicious lesions. Sinuses: Visualized sinuses and mastoids are clear. IMPRESSION: 1. New acute or subacute infarct in the left cerebellar hemisphere. No evidence of acute hemorrhage. 2. Right occipital lobe encephalomalacia and hypodensity in the right caudate head redemonstrated consistent with sequelae of prior infarcts. Given the history of multiple infarcts in different vascular territories, the findings are suggestive of an embolic etiology. Findings discussed with Dr. Aleman on August 31, 2020 at 2:46 p.m. [place] time. Dictated by: Kenneth Wei M.D. on 08/31/2020 at 13:44 Approved by: Kenneth Wei M.D. on 08/31/2020 at 13:51 ECG Data Attestation: I personally reviewed and interpreted this ECG as follows: Prior ECG tracings: not available for review Interpretation: Sinus rhythm Ventricular rate 97 Normal axis QTC [address] T wave changes MDM Narrative Medical decision making narrative: Patient's symptoms started on Friday night. They are fairly debilitating specially when the symptoms come on causing her to have nausea and almost falling over. She describes both a vertigo type sensation but also a non vertigo unsteadiness. She has had CVAs in the past. Head CT today shows what appears to be a new left-sided CVA. I suspect that this occurred when her symptoms started a couple days ago. Patient not a tPA candidate. Had a NIH score of 1 which was secondary to issues with [id number] with the left lower extremity. This could potentially be old however the patient is unsure. Did discuss the case with Dr. Celeste with Internal Medicine who will admit for further evaluation treatment to include MRI and physical therapy and medical management. I discussed the findings with the patient and family at bedside. They expressed understanding and agreement. Discharge Plan Departure Patient Disposition: Admitted As Inpatient Clinical Impression: Dizziness CVA (cerebral vascular accident) Qualifiers: CVA mechanism: unspecified Qualified Code(s): I63.9 - Cerebral infarction, unspecified Discharge Date/Time: 08/31/20 15:41 Admit Date/Time: 08/31/20 15:40 Admit Provider: Paramjit Celeste
[2020-08-31 14:10] LABS: Alanine Aminotransferase 24 IU/L (<35); Albumin 4.5 g/dL (3.5-5.0); Albumin Globulin Ratio 1.5 (1.0-2.8); Alkaline Phosphatase 58 U/L (38-126); Aspartate Aminotransferase 27 IU/L (14-36); BUN Creatinine Ratio 20.6 (6-22); Bilirubin Total 0.6 mg/dL (0.2-1.3); Blood Urea Nitrogen 22 mg/dL (7-17); Calcium 9.6 mg/dL (8.4-10.2); Carbon Dioxide 30 mmol/L (22-32); Chloride 102 mmol/L (98-107); Glucose 182 mg/dL (70-100); HEMOLYSIS < 15 (0-50); Lipase 62 U/L (23-300); Potassium 3.6 mmol/L (3.4-5.1); Sodium 140 mmol/L (137-145); Total Protein 7.5 g/dL (6.3-8.2)
[2020-08-31] MEDS: ONDANSETRON 4 MG/2 ML INJ IV ×2 (14:13→22:41)
[2020-08-31] MEDS: SODIUM CHLORIDE 0.9% 1,000 ML 1000 ML IV (14:13)
[2020-08-31] MEDS: MECLIZINE HCL 12.5 MG TABLET 25 MG PO ×2 (14:13→20:23)
--- NOTE | 2020-08-31 14:21 | PC.NURSE ---
Patient has nausea, vomiting, lightheadedness and dizziness since Friday. She is T2DM and has not taken her metformin since Friday.
[2020-08-31] MEDS: ACETAMINOPHEN 325 MG TABLET 650 MG PO ×2 (15:26→20:23)
[2020-08-31] MEDS: NICOTINE 21 MG PATCH TOP (15:54)
[2020-08-31 17:09] LABS: COVID19 -Nasal RAPID Negative (Negative)
--- NOTE | 2020-08-31 17:33 | PC.NURSE ---
170 -Pt arrived in room. Reports needing to use the bathroom. Educated to safety and fall precautions. Bathroom floor remains damp from room cleanning. Pt refuses to us BSC. I won't go, until it is in a toilet. Pt reports hx of fall this week. Not all the way to the floor, like into [place]. Pt currently denies dizziness, nausea. Pt friend arrives with food. Discussed swallow and MD has not seen pt or written diet orders. Pt states, I don't care, I am so hungry. Pt reports having N/V since Friday. I am eating now. Pt oriented to room and routine. Call light in reach. founder and chief technical officer in place. Awaiting orders.
--- NOTE | 2020-08-31 18:09 | P.HP_ITS ---
History of Present Illness History of Present Illness Date Patient Seen: 08/31/20 Time Patient Seen: 18:09 Date of Onset of Symptoms: 08/29/20 Chief complaint: extreme dizziness, nausea and vomiting Narrative: Miss Jazmin Barragan is a 54-year-old female with a past medical history significant for hypertension, diabetes type 2, COPD on home oxygen 2 L, prior CVA, and dyslipidemia who presents to the hospital with persistent nausea and vomiting for the past 2 days. Patient states that her symptoms worsen with movement, and happened at least a couple times every hour for the past 2 days. It is woken her from sleep as well a couple times overnight. She has not been able to eat or drink anything really and till she got some medications in the emergency room today. She has some vision loss from her prior stroke but denies any new visual changes. She does get feelings of her heart skipping a beat which have been going on for years, but has not noticed any recently. She denies any headache. She has not had any chest pain or shortness of breath, and she denies fevers or chills. She has chronic bilateral lower extremity tingling from her diabetes, but denies any numbness, weakness, facial droop, or slurred speech. She does endorse leaning somewhat more to her left side and imbalance which has been worse over past 2 days as well. In the emergency room, her vital signs were unremarkable. She is at her baseline oxygen level saturating at 97%. Initial laboratory evaluation showed a mild leukocytosis at 13.7, but a normal hemoglobin and normal platelet count. Chemistries showed a mild increase in her creatinine to 1.07, from around 0.6 during her prior admission. Glucose was 182, and there were other significant lab abnormalities. Troponin level was added on and is currently pending. COVID-[address] head showed a new acute or subacute infarct in the left cerebellar hemisphere without evidence of hemorrhage as well as her right occipital and right caudate lobe but old infarcts. Patient History Medical History Cardiac arrhythmia (Acute) Chronic obstructive pulmonary disease (10/14/14) Diabetes (Acute) Diabetic neuropathy (Acute) Dyslipidemia (Acute) End stage chronic obstructive pulmonary disease (Acute) Generalized anxiety disorder (Acute) Hypertension (Acute) Surgical History History of (Acute) History of local excision of skin lesion (Acute) Family & Social History Family History Father Alcoholic cirrhosis Mother Age: 77 Diabetes mellitus type II, controlled CVA (cerebral infarction) Social History: household members children Prior Living Arrangements House Safety & Behavioral: Feels Safe in Current Yes Environment Been Physically Hurt or No Threatened By a Person Suicidal Ideation Description None Tobacco & Substance use: Smoking Status Current every day smoker Smoking packs per day 1 alcohol intake former alcohol intake frequency holiday/special occasion Substance Use Type does not use Meds Home Medications and Allergies Home Medications Medication Instructions Recorded Confirmed Type aspirin 325 mg PO DAILY #30 tab 02/01/20 08/31/20 Rx Disabled Parking Permit #1 each 04/25/20 05/01/20 Rx lorazepam 0.5 mg tablet 0.5 mg PO BID PRN #30 tab 05/01/20 08/31/20 Rx atorvastatin 40 mg tablet 40 mg PO BEDTIME #90 tab 08/01/20 08/31/20 Rx glipizide 5 mg tablet, extended 5 mg PO DAILY #90 tab 08/01/20 08/31/20 Rx release 24 hr lisinopril 20 1 tab PO DAILY #90 tab 08/01/20 08/31/20 Rx mg-hydrochlorothiazide 12.5 mg tablet metformin 1,000 mg tablet 1,000 mg PO BID #180 tab 08/01/20 08/31/20 Rx pioglitazone 15 mg tablet 15 mg PO DAILY #90 tab 08/01/20 08/31/20 Rx nifedipine 60 mg PO DAILY 08/31/20 08/31/20 History Allergies Allergy/AdvReac Type Severity Reaction Status Date / Time azithromycin Allergy Severe ARM PAIN Verified 05/01/20 16:15 AND FACIAL REDNESS DURING INFUSION naproxen Allergy Severe Hives Verified 05/01/20 16:15 penicillin G Allergy Severe RASH Verified 05/01/20 16:15 codeine Allergy Mild RASH Verified 05/01/20 16:15 hydrocodone Allergy Mild RASH Verified 05/01/20 16:15 Review of Systems Review of Systems Narrative: All other systems reviewed with the patient and are negative unless otherwise stated. Exam Vital Signs (past 8 hours): - 08/31/20 13:40 10/08/20 13:49 08/31/20 14:00 Temperature 97.6 F Pulse Rate 115 H 102 H 103 H Respiratory Rate 22 35 H 19 Blood Pressure 137/84 Pulse Oximetry 96 96 95 08/31/20 14:05 08/31/20 14:35 08/31/20 15:00 Temperature Pulse Rate 98 H 89 88 Respiratory Rate 20 25 H 22 Blood Pressure 121/88 Pulse Oximetry 96 98 98 08/31/20 15:30 08/31/20 16:00 08/31/20 16:30 Temperature Pulse Rate 87 88 86 Respiratory Rate 22 28 H 19 Blood Pressure Pulse Oximetry 97 98 97 08/31/20 16:55 08/31/20 17:51 Temperature 97.8 F Pulse Rate 88 Respiratory Rate 20 Blood Pressure 142/81 H 140/77 Pulse Oximetry 97 Oxygen Delivery Method Nasal Cannula Oxygen Flow Rate 2 Narrative Exam Narrative: GENERAL APPEARANCE: Well developed, well nourished, in no acute distress. SKIN: Inspection of the skin reveals no rashes, ulcerations or petechiae. HEENT: Normocephalic atraumatic, extraocular muscles are intact, oropharynx is clear and mucous membranes are moist, neck is supple without adenopathy NECK: Supple and symmetric. There was no thyroid enlargement, and no tenderness, or masses were felt. CHEST: Normal AP diameter and normal contour without any kyphoscoliosis. LUNGS: Auscultation of the lungs revealed no wheezes, rhonchi, or rales. CARDIOVASCULAR: There was a regular rate and rhythm without any murmurs, gallops, rubs. Peripheral pulses were 2+ and symmetric. ABDOMEN: Soft and nontender with normal bowel sounds. No ascites was noted. MUSCULOSKELETAL: There was no tenderness or effusions noted. Muscle strength and tone were normal. EXTREMITIES: No cyanosis, clubbing or edema. NEUROLOGIC: Bilateral lower extremity neuropathy with slightly diminished sensation. No nystagmus. Strength is +5/5 in all extremities. Cranial nerves 2-12 are grossly intact bilaterally. Objective Imaging CT scan - head: Radiologist's impression: 1. New acute or subacute infarct in the left cerebellar hemisphere. No evidence of acute hemorrhage. 2. Right occipital lobe encephalomalacia and hypodensity in the right caudate head redemonstrated consistent with sequelae of prior infarcts. Given the history of multiple infarcts in different vascular territories, the findings are suggestive of an embolic etiology. Labs Result Diagrams: 08/31/20 13:55 08/31/20 13:55 Labs: Laboratory Results - last 24 hr 08/31/20 08/31/20 08/31/20 13:55 13:55 15:25 WBC 13.7 H RBC 4.90 Hgb 15.1 Hct 45.0 MCV 91.9 MCH 30.9 MCHC 33.6 RDW 13.9 Plt Count 269 Neut % (Auto) 61.2 Lymph % (Auto) 33.3 [place] % (Auto) 4.3 Eos % (Auto) 0.2 L Baso % (Auto) 1.0 Neut # (Auto) 8400 H Lymph # (Auto) 4600 H [place] # (Auto) 600 Eos # (Auto) 0 Baso # (Auto) 100 Sodium 140 Potassium 3.6 Chloride 102 Carbon Dioxide 30 BUN 22 H Creatinine 1.07 H Estimated GFR 53.0 L BUN/Creatinine Ratio 20.6 Glucose 182 H Calcium 9.6 Total Bilirubin 0.6 AST 27 ALT 24 Alkaline Phosphatase 58 Total Protein 7.5 Albumin 4.5 Globulin 3.0 Albumin/Globulin Ratio 1.5 Lipase 62 COVID-19 PCR Negative Assessment & Plan Assessment & Plan narrative: Miss Jazmin Barragan is a 54-year-old female with a past medical history significant for hypertension, diabetes type 2, COPD on home oxygen 2 L, prior CVA, and dyslipidemia who presents to the hospital with persistent nausea and vomiting for the past [address] scan showed a new infarct in the left cerebellum. 1. Acute CVA, right occipital, present on admission, active. -patient presented with 2 days of nausea and vomiting somewhat related to positional changes but also waking her up at night. -CT noncontrast showed a new infarct in her left cerebellum in addition to her prior old infarcts as well. -given multitude of infarcts in different arterial distributions, there is a high concern for atrial fibrillation and will start the patient on apixaban for presumed AFib. Will discontinue asa. Patient already on lipitor 40 mg after previous CVA. -ordered MR stroke protocol, and echocardiogram -stroke scale qshift -PT/OT eval and treat -risk stratify with A1c, TSH, lipid panel. -continue symptom relief with zofran and meclizine. 2. Diabetic type 2 with hyperglycemia, with diabetic neuropathy, present on admission, active. -Fingerstick blood sugars AC and HS, coverage with low-dose sliding scale insulin. -Will obtain hemoglobin A1c, patient reports her appliance with her outpatient medications. -will hold home medications 3. Chronic obstructive lung disease, oxygen dependent, present on admission, active. 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 -She is on continuous oxygen 2 liters/minute -Strongly encouraged smoking cessation. -RT Eval and treat. duonebs BID and prn albuterol. Min thank you for the 4. Essential hypertension, present on admission, chronic -patient reports compliance with medication and appears controlled, will continue with home medications. 5. Dyslipidemia, chronic, active -continue lipitor 40 mg. Patient has previously self discontinued meds due to cost and living on disability. She has medicare. VTE prophylaxis: SCDs and enoxaparin Diet: Heart healthy, low-sodium. The patient is admitted to the hospital for further evaluation and monitoring for acute / subacute CVA. Anticipate discharge home at this point. Admitted und er inpatient status for acute CVA as her stay is expected to exceed two midnights. Quality VTE Deep Vein Thrombosis/Pulmonary Embolism Present on Admission: No
[2020-08-31 18:15] LABS: Troponin I < 0.012 ng/mL (0.01-0.034)
--- NOTE | 2020-08-31 18:19 | DI.MRI.S_ITS ---
PROCEDURE: MR STROKE Pre- and post-contrast brain MRI, non-contrast brain MR angiogram, pre- and postcontrast neck MR angiogram INDICATIONS: acute CVA on CT imaging TECHNIQUE: Brain: Noncontrast axial T1 spin echo, axial T2 fast spin echo, sagittal and axial FLAIR, coronal T2 fast spin echo, axial gradient echo, axial diffusion and ADC through the brain. After the administration of contrast, axial 3D VIBE of the cranial vasculature and brain. Brain MRA: Non-contrast 3-D time of flight MR angiogram, with multiple rnomfpp-flmilnkfg-cdetdofihk (MIP) reformats performed. Neck MRA: Axial and sagittal TruFISP through the neck. Coronal dynamic MR angiogram during administration of contrast in the arterial and venous phases, with 3-dimenstional huuaabl-faafrisfn-ehmzwiresr (MIP) reformats constructed from subtraction images. COMPARISON: [facility], CT, CT HEAD/BRAIN WO CON, 08/31/2020, 14:28. [facility], CT, CT HEAD/BRAIN WO CON, 04/06/2020, 15:57. [facility], MR, MR STROKE, 02/01/2020, 10:37. [facility], CT, CT ANGIO HEAD AND NECK, 01/31/2020, 19:53. FINDINGS: Image quality: Degraded by motion artifact. BRAIN: CSF spaces: Ventricles are normal in size and shape. Basal cisterns are patent. No extra-axial fluid collections. Brain: No intracranial bleeds or mass effects. Wyatt-white matter interface is normal. Restricted diffusion noted in the inferior margin of the left cerebellar hemisphere compatible with acute infarct. 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 Small, chronic right caudate head lacunar infarct is stable. Brainstem appears normal. Normal intravascular flow voids are present. Dural sinuses demonstrate normal postcontrast enhancement. No abnormal intracranial enhancement. Skull and face: Calvarial marrow signal is normal. Orbits appear normal. Sinuses: Sinuses and mastoids are clear. BRAIN MR ANGIOGRAM: Anterior circulation: Intracranial internal carotid arteries are normal in size and enhancement. The flow within the paired anterior cerebral arteries is normal and symmetric. The flow within the middle cerebral arteries is normal and symmetric. The anterior communicating artery is seen. No stenoses, occlusions, or aneurysms. Posterior circulation: The visualized portions of the vertebral arteries demonstrate normal caliber, and join to form a normal appearing basilar artery. Moderate stenosis involving the P1 segment of the right posterior cerebral artery is stable compared to prior examination. Multifocal mild atherosclerotic stenoses involving the P2 segment of the right posterior cerebral artery and the P1 and P2 segments of the left posterior cerebral artery are stable compared to the prior exam. Absence of flow noted in the left posterior inferior cerebral artery approximately 2 centimeters distal to the origin compatible with occlusion which has developed in the interval since prior exam obtained February 01, 2020. No stenosis or aneurysms. NECK MR ANGIOGRAM: Carotids: Great vessels demonstrate bovine variant anatomy as they arise from the aortic arch. The origins of the common carotid arteries appear patent. The calibers and courses of both common carotid arteries are normal. The bifurcation regions appear normal bilaterally. The internal carotid arteries demonstrate normal course and caliber. Posterior circulation: The origins of the vertebral or poorly visualized due to motion artifact and cannot be evaluated. Normal flow noted in the well visualized portions of the vertebral arteries.. More superior portions of both vertebral arteries demonstrate normal course and caliber, and join to form a normal appearing basilar artery. Miscellaneous: Subclavian arteries appear patent. Pre-contrast images through the neck show no soft tissue abnormalities. IMPRESSION: BRAIN MRI: 1. Acute/subacute inferior left cerebellar hemisphere infarct. 2. Chronic right occipital infarct. 3. Chronic, small right caudate head lacunar infarct. 4. No intracranial hemorrhage. BRAIN MR ANGIOGRAM: 1. Absence of flow in the left posterior inferior cerebral artery approximately 2 centimeters distal to the origin of the vessel compatible with occlusion. 2. Multifocal mild atherosclerotic stenosis involving the posterior cerebral arteries bilaterally with moderate, short segment atherosclerotic stenosis involving the P1 segment of the right posterior cerebral artery. NECK MR ANGIOGRAM: 1. Internal carotid arteries are fully patent. 2. Origins of the vertebral arteries poorly visualized due to motion artifact. There is normal flow within the well visualized portions of the vertebral arteries Dictated by: Lou Topete MD, PhD on 09/01/2020 at 11:31 Approved by: Lou Topete MD, PhD on 09/01/2020 at 11:42
[2020-08-31] MEDS: ATORVASTATIN 20 MG TABLET 40 MG PO (20:23)
[2020-08-31] MEDS: APIXABAN 5 MG TABLET PO (20:23)
[2020-09-01] VITALS (8 sets, daily range): BP systolic 106–136; BP diastolic 58–72; PULSE 78–89; RESP 16; TEMP 36.1–36.3; O2SAT 96–98
[2020-09-01] MEDS: ACETAMINOPHEN 325 MG TABLET 650 MG PO (05:43)
[2020-09-01] MEDS: LORazepam 0.5 MG TABLET PO ×2 (05:43→15:44)
[2020-09-01 05:49] LABS: Add Manual Diff / Slide Review NO; Basophils Absolute Auto 100 /uL (0-100); Basophils Percent Auto 0.5 % (0-2); Eosinophils Absolute Auto 100 /uL (0-450); Hematocrit 39.6 % (36-46); Hemoglobin 13.1 g/dL (12.0-16.0); Lymphocytes Absolute Auto 5300 /uL (1100-4500); Lymphocytes Percent Auto 45.5 % (25-40); Mean Corpuscular HGB Conc 33.1 % (30-36); Mean Corpuscular Hemoglobin 30.4 PG (26-34); Monocytes Absolute Auto 1000 /uL (0-900); Monocytes Percent Auto 8.2 % (3-14); Neutrophils Absolute Auto 5200 /uL (1500-7000); Neutrophils Percent Auto 44.8 % (50-75); Platelet Count 217 X10^3/uL (150-400); Red Blood Cell Count 4.31 X10^6/uL (4.0-5.2); Red Cell Distribution Width 13.6 % (11.6-14.8); White Blood Cell Count 11.6 X10^3/uL (4.5-11.0)
[2020-09-01 06:00] LABS: Alanine Aminotransferase 20 IU/L (<35); Albumin 3.6 g/dL (3.5-5.0); Albumin Globulin Ratio 1.4 (1.0-2.8); Alkaline Phosphatase 59 U/L (38-126); Aspartate Aminotransferase 23 IU/L (14-36); BUN Creatinine Ratio 27.1 (6-22); Bilirubin Total 0.6 mg/dL (0.2-1.3); Bilirubin Unconjugated 0.4 mg/dL (0.0-1.1); Blood Urea Nitrogen 23 mg/dL (7-17); Calcium 8.5 mg/dL (8.4-10.2); Carbon Dioxide 32 mmol/L (22-32); Chloride 106 mmol/L (98-107); Cholesterol 133 mg/dL (140-199); Estimated Glomerular Filt Rate > 60.0 mL/min (>60); Globulin 2.5 g/dL (1.7-4.1); Glucose 110 mg/dL (70-100); HDL Cholesterol 49 mg/dL (40-60); HEMOLYSIS < 15 (0-50); LDL Cholesterol Calculated 67 mg/dL (<100); Magnesium 2.1 mg/dL (1.6-2.3); Sodium 140 mmol/L (137-145); Total Protein 6.1 g/dL (6.3-8.2); Triglycerides 86 mg/dL (35-150)
[2020-09-01 06:27] LABS: TSH w/ Reflex to FT4 0.65 uIU/mL (0.47-4.68)
[2020-09-01] MEDS: ALBUTEROL/IPRATROPIUM 3 ML AMPUL INH (08:45)
[2020-09-01] MEDS: hydroCHLOROthiazide 12.5 MG CAPSULE PO (08:49)
[2020-09-01] MEDS: NIFEdipine 30 MG TAB ER 60 MG PO (08:49)
[2020-09-01] MEDS: APIXABAN 5 MG TABLET PO (08:49)
[2020-09-01] MEDS: lisinopriL 20 MG TABLET PO (08:49)
[2020-09-01] MEDS: MECLIZINE HCL 12.5 MG TABLET 25 MG PO ×2 (09:28→15:44)
[2020-09-01] MEDS: SODIUM CHLORIDE 0.9% FLUSH 10 ML IV (10:10)
[2020-09-01] MEDS: ONDANSETRON 4 MG/2 ML INJ IV (10:10)
--- NOTE | 2020-09-01 10:26 | PC.NURSE ---
Addendum entered by Jenn Flowers R.N. 09/01/20 11:04: pt back from MRI at 1104. Original Note: Day Shift- pt to MRI at 1020 via wheelchair with 2L O2 NC. Nicotine patch removed from left upper arm, placed 08/31 at 1600. Tele removed at this time. Prior pt up to BR with SBA, SOBOE, had to pause ambulation to deep breathe. NIH score is 1, nothing new, states partial vision loss in both eyes from previous stroke. PRN IV zofran given prior to MRI, pt states lying down might make her nauseated. Also PRN Meclizine given at 0930 prior to MRI as pt states has dizziness with ambulation.
--- NOTE | 2020-09-01 11:55 | PT.IIE ---
Surgical History (Last Reviewed 04/06/20 @ 15:55 by DEBBY Rodriguez) History of (Acute) History of local excision of skin lesion (Acute) Medical History (Last Reviewed 08/31/20 @ 14:36 by Harshad Aleman DO) Cardiac arrhythmia (Acute) Chronic obstructive pulmonary disease (10/14/14) Diabetes (Acute) Diabetic neuropathy (Acute) Dyslipidemia (Acute) End stage chronic obstructive pulmonary disease (Acute) Generalized anxiety disorder (Acute) Hypertension (Acute) Physical Therapy Inpatient Evaluation/Re-Eval M1 PT/OT-IP Prior Functional Status Start: 09/01/20 12:42 Freq: NEEDED Status: Active Protocol: Document 09/01/20 11:55 AB (Rec: 09/01/20 12:58 AB [id number]) Medical Review Prior Functional Status Medical History Reviewed Yes Communication able to make needs known Mobility and Gait pt stated that she is independent with all mobilities and ambulation without AD Prior Functional Level (Other details) pt with h/o CVAs and just had one early this year but stated that she did not have physical therapy afterwards because she cannot afford the co-pay Social History Household Members children Living Arrangements House Number of Floors (Floors) 3 or More Floors Number of Stairs To Enter/Railing? 4 steps to enter with L rail pt stays on main level of the house Home Environment Standard Height Toilet,Tub/ Shower Home Equipment Four Wheel Walker,Shower Seat with Backrest,Hand Held Shower Additional Social History Comment pt stated that she is on disability son works and will not be able to be with her 24/7 M2 PT-IP Current Condition Start: 09/01/20 12:42 Freq: NEEDED Status: Active Protocol: Document 09/01/20 11:55 AB (Rec: 09/01/20 12:58 AB [id number]) Physical Therapy Current Condition Current Condition Evaluation Date 09/01/20 Treatment Diagnosis CVA; difficulty in walking Onset Date 08/31/20 Precautions Other Precautions falls M3 PT-IP Subjective Start: 09/01/20 12:42 Freq: NEEDED Status: Active Protocol: Document 09/01/20 11:55 AB (Rec: 09/01/20 12:58 AB [email or web address]) Subjective Physical Therapy Visit Type Type Initial Evaluation Visit Start Time 11:55 Visit Stop Time 12:25 Total Visit Minutes 30 Number of 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 Visits 0 Physical Therapy Visit Comments Patient Comments pt is agreeable to do PT; stated that dizziness is not too bad since she got medication M4 PT-IP Mobility and Gait Start: 09/01/20 12:42 Freq: NEEDED Status: Active Protocol: Document 09/01/20 11:55 AB (Rec: 09/01/20 12:58 AB [id number]) PT-Bed Mobility Assessment Supine to Sit Supine to Sit Standby Assistance Sit to Supine Sit to Supine Standby Assistance Scooting Scooting to Edge of Bed Standby Assistance PT-Transfer Assessment Sit to and From Stand Sit to and from Stand Standby Assistance Equipment Transfer Assistive Device None,Gait Belt,Front Wheeled Walker,4 Wheeled Walker Orthotic/Prosthetic Devices or Brace: No Transfers Transfer Destination Chair Transfer Technique ambulated Transfer Ability Level of Assist Standby Assistance,Contact Guard Assistance,1 Person Assistance,Use of Upper Extremities Comments Mobility Comments completed supine to sit with HOB elevated SBA. completed sit to stand SBA. ambulated in room without AD CGA with (+) LOB to the R. educated pt on safety. assessed ambulation using FWW and pt completed SBA . pt stated that she has a 4WW at home. assessed ambulation using 4WW and completed SBA. pt also completed up/down step stool using L rail SBA. pt sat back on chair. set up for lunch. OT came in and took over. Gait Assessment Gait Gait Assistance Required: Standby Assistance,Contact Guard Assist Distance (Feet) 30 Able to Maintain Weight Bearing Status Yes During Gait Assistive Devices Assistive Device None,Gait Belt,Front Wheeled Walker,4 Wheeled Walker Orthotic/Prosthetic Devices or Brace: No Gait Deviations General Gait Pattern Lateral Trunk Lean Factors Limiting Gait Function Factors Limiting Gait Function Decreased Activity Tolerance, Poor Balance Comments Gait Comments pls refer to mobility section for details. educated pt on safety and recommended using of 4WW for ambulation at this time and pt agreed. Stair Climbing Assessment Evaluation Level of Assist On Stairs Standby Assistance Devices Stair Climbing Assistive Devices Left Railing Technique/Endurance Stair Climbing Direction Ascend and Descend Stair Climbing Technique Step to Step Number of Steps Climbed 1 Query Text: Stair Climbing Set # Repetitions (reps) 2 PT-Balance Assessment Sitting Balance and Reactions Static Sitting Balance Ability Good Dynamic Sitting Balance Ability Good Standing Balance and Reactions Static Standing Balance Ability Fair Dynamic Standing Balance Ability Fair Device Used without AD M5 PT-IP Objective Assessments Start: 09/01/20 12:42 Freq: NEEDED Status: Active Protocol: Document 09/01/20 11:55 AB (Rec: 09/01/20 12:58 AB [id number]) Orientation Orientation/Cognition Level of Alertness Alert Orientation Name,Age,Birthday,Month,Date, Year,Day of Week,Place, Situation Memory Description No Deficits Noted Comments pt stated that she has visual deficits from her last CVA Gross Range of Motion Lower Extremity ROM Assessment Within Functional Limits Strength Lower Extremity Strength Hip 4-/5 Knee 4-/5 Coordination Assessment Gross Coordination Gross Coordination WNL Muscle Tone Muscle Tone WNL Yes M6 PT-IP Treatment Start: 09/01/20 12:42 Freq: NEEDED Status: Active Protocol: Document 09/01/20 11:55 AB (Rec: 09/01/20 12:58 AB [email or web address]) Physical Therapy Treatment Education Education Provided Safety M7 PT-IP Assessment and Plan Start: 09/01/20 12:42 Freq: NEEDED Status: Active Protocol: Document 09/01/20 11:55 AB (Rec: 09/01/20 12:58 AB [email or web address]) PT Summary Assessment and Plan Potential Rehabilitation Potential Good Status of Condition at Evaluation Stable Summary Impairments Pain,ROM,Strength,Balance,Bed Mobility,Transfers,Gait, Activity Tolerance Assessment Summary pt requiring SBA with mobility and ambulation using 4WW. recommending use of 4WW at this time. informed pt regarding acute rehab and refused. stated that she is better off at home. informed about homehealth PT and pt stated that if her insurance covers it. stated that last time she had her CVA, she had a copay and she cannot afford it. pt plans to go home. Goals Bed Mobility Goal Independent Transfer Goal Independent,Four Wheeled Walker Gait Goal Independent,Four Wheel Walker Gait Distance 150 Other Goals up/down 4 steps L rail ascending mod I ambulation without AD 150 ft SBA Days to Meet Goals 3 Frequency of Treatment Frequency Of Treatment Once a Day Treatment Plan Physical Therapy Treatment Plan Bed Mobility Training,Transfer Training,Gait Training, Therapeutic Exercise,Balance Retraining,Discharge Planning, Hot or Cold Pack,Neuromuscular Re-ed,Coordination Retraining Recommendations To Nursing Amount of Assist Needed 1 Person Assist Discharge Recommendations PT Discharge Recommendations Home with Assistance,Home Health Transportation Needs at Discharge Private Vehicle
--- NOTE | 2020-09-01 12:48 | OT.IP.EVAL ---
Current Diagnoses Cerebral infarction, unspecified (08/31/20) Past Medical History (Last Reviewed 08/31/20 @ 14:36 by Harshad Aleman DO) Cardiac arrhythmia (Acute) Chronic obstructive pulmonary disease (10/14/14) Diabetes (Acute) Diabetic neuropathy (Acute) Dyslipidemia (Acute) End stage chronic obstructive pulmonary disease (Acute) Generalized anxiety disorder (Acute) Hypertension (Acute) Surgical History (Last Reviewed 04/06/20 @ 15:55 by DEBBY Rodriguez) History of (Acute) History of local excision of skin lesion (Acute) Occupational Therapy Inpatient Evaluation/Re-Eval M1 PT/OT-IP Prior Functional Status Start: 09/01/20 12:42 Freq: NEEDED Status: Active Protocol: Document 09/01/20 13:23 CGR (Rec: 09/01/20 13:29 CGR [id number]) Medical Review Prior Functional Status Medical History Reviewed Yes Communication able to make needs known Mobility and Gait pt stated that she is independent with all mobilities and ambulation without AD Activities of Daily Living and IADL's Pt was IND in all ADLs. Pt states that her son assist with lifting heavy items like taking out the trash or movign laundry. Prior Functional Level (Other details) pt with h/o CVAs and just had one early this year but stated that she did not have physical therapy afterwards because she cannot afford the co-pay Social History Household Members children Living Arrangements House Number of Floors (Floors) 3 or More Floors Number of Stairs To Enter/Railing? 4 steps to enter with L rail pt stays on main level of the house Home Environment Standard Height Toilet,Tub/ Shower Home Equipment Four Wheel Walker,Shower Seat with Backrest,Hand Held Shower Additional Social History Comment pt stated that she is on disability son works and will not be able to be with her 24/7 M2 OT-IP Current Condition Start: 09/01/20 13:22 Freq: Status: Active Protocol: Document 09/01/20 13:23 CGR (Rec: 09/01/20 13:29 CGR [id number]) Occupational Therapy Current Condition Current Condition Evaluation Date 09/01/20 Treatment Diagnosis Acute CVA Diagnosis Onset Date 08/31/20 M3 OT- IP Subjective and Pain Start: 09/01/20 13:22 Freq: Status: Active Protocol: Document 09/01/20 13:23 CGR (Rec: 09/01/20 13:29 CGR [id number]) OT- Subjective Occupational Therapy Visit Type Type Initial Evaluation Visit Start Time 12:23 Visit Stop Time 12:48 Total Visit Minutes 25 Notes OT entered at end of P.T. session. OT Pain Assessment Pain When Pain Assessed At Rest Pain Present Pain Present Denied Pain M4 OT- IP ADL's Start: 09/01/20 13:22 Freq: Status: Active Protocol: Document 09/01/20 13:23 CGR (Rec: 09/01/20 13:29 CGR [id number]) OT [id number] General Evaluation Self-Feeding Ability Independent Comments OT Self-Feeding Comments lunch OT ADL-Grooming General Evaluation Grooming Ability Independent Areas Needing Assistance Combing/Brushing Hair,Face Washing Comments OT Grooming Comments standing at sink OT ADL-Oral Care Comments Oral Care Comments not performed OT ADL-Dressing General Eval Lower Body Dressing Ability Independent Areas Needing Assistance Socks OT ADL-Toileting General Evaluation Toileting Ability Independent Devices Toileting Assistive Devices Grab Bars OT ADL-Bathing Comments OT Bathing Comments not performed M5 OT- IP IADL's Start: 09/01/20 13:22 Freq: Status: Active Protocol: Document 09/01/20 13:23 CGR (Rec: 09/01/20 13:29 CGR [id number]) OT-Instrumental Activities of Daily Living Deficits IADL Deficits Identified No Deficits Home Safety Awareness Awareness of Need for Assistance at Home Good Awareness Ability to Problem Solve Emergency Able to Problem Solve Situations Medication Management Medication Management No Deficits Identified Money Management Money Management No Deficits Identified Meal Preparation Meal Preparation No Deficits Identified Funeral Home Associate Funeral Home Associate No Deficits Identified Driving Driving Comments Pt does not drive since her last CVA with L lower quadrant vision loss. M6 OT- IP Functional Cognition Start: 09/01/20 13:22 Freq: Status: Active Protocol: Document 09/01/20 13:23 CGR (Rec: 09/01/20 13:29 CGR [id number]) Cognitive Factors Limiting Selfcare Function Cognitive Ability Level of Alertness Alert Patient Orientation Name,Age,Birthday,Month,Date, Year,Day of Week,Place, Situation Attention Span Ability Capable of Focused Attention, Capable of Sustained Attention Memory Description No Deficits Noted Safety Awareness No Deficits Noted OT- Vision and Hearing OT- Hearing Assessment OT- Hearing Assessment WFL OT- Vision Assessment Visual Attentiveness WFL Visual Convergence WFL Vision Assessment Comments Occular pursuits are not typical but pt states that she has adjusted to her L lower quadrant vision loss by increasing visual movement. M7 OT- IP Mobility and Balance Start: 09/01/20 13:22 Freq: Status: Active Protocol: Document 09/01/20 13:23 CGR (Rec: 09/01/20 13:29 R [id number]) OT-Transfer Assessment Sit to and From Stand Sit to and from Stand Standby Assistance Transfers Transfer Ability Standby Assistance Technique Transfer Destination Bed,Chair,Toilet Transfer Technique Stand Step Pivot Devices Transfer Assistive Devices Gait Belt,4 Wheeled Walker OT- Gait Assessment Gait Gait Assistance Required: Standby Assistance Assistive Devices Assistive Device Gait Belt,4 Wheeled Walker Comments Gait Ability Comments mobility around the room. OT- Balance Assessment Sitting Balance and Reactions Static Sitting Balance Ability Good Dynamic Sitting Balance Ability Fair M8 OT- IP Objective Assessments Start: 09/01/20 13:22 Freq: Status: Active Protocol: Document 09/01/20 13:23 CGR (Rec: 09/01/20 13:29 R [id number]) OT Gross Range of Motion Upper Extremity Range of Motion Assessment Within Functional Limits OT Strength Upper Extremity Strength Assessment Within Functional Limits OT- Coordination Assessment Upper Extremity Finger to Nose Test Within Functional Limits Finger Tapping Test Within Functional Limits OT-Muscle Tone Assessment Muscle Tone WNL Yes OT Sensation Assessment Edema Edema Absent M9 OT- IP Assessment and Plan Start: 09/01/20 13:22 Freq: Status: Active Protocol: Document 09/01/20 13:23 CGR (Rec: 09/01/20 13:29 R [id number]) OT Summary Assessment and Plan Potential Rehabilitation Potential Excellent Analytic Complexity at Evaluation Low Summary Progress Towards Goals Safe For Discharge,Goals Met Assessment Summary Pt presents as a low complexity evaluation s/p CVA. Pt appears to be at or close to her baseline. No further OT needs. Pt is now using a 4ww for all mobility. Frequency of Treatment Frequency Of Treatment Discharge Discharge Recommendations OT Discharge Recommendations Home Transportation Needs at Discharge Private Vehicle
[2020-09-01] MEDS: NICOTINE 21 MG PATCH TOP (12:57)
--- NOTE | 2020-09-01 15:09 | CM.DANOTE ---
Discharge Planning/Care Management DCP: case received, EMR reviewed and met briefly with pt during Team Bedside Rounds. Followup up with her again in more depth when d/c order was noted this afternoon and after PT/OT worked with pt. Pt is a 54 year old female who admitted to care of hospitalist team yesterday late afternoon. PCP: Dr. Desmond Mi Payer: [employer] Medicare Admission status: INPT: confirmed by UR RN Lois Celeste confirmed for all this morning during Rounds that pt was + CVA /cerebellum. He explained the tests that would be done today. Pt expressed her desire for home later today if possible. In meeting with her again this afternoon she is smiling, relaxed and says she is glad she can go home. She says her friend Abigail, who brought her to the hospital, is bringing her back home. Pt says she is very aware of the importance of seeing her PCP [facility] as has ordered Warfarin to be started. She had contacted the clinic and was just waiting for the director of public safety to call her back with appt time. Pt says she has been doing well overall since establishing with Dr. Mi and my diabetes is in much better control. Her income is limited and so she is careful to make sure she knows about any copays etc before proceeding with ancillary treatments or new medications. Dr. Celeste had discussed this with pt and took it into consideration in his d/c instructions. OT NATE has worked with pt this afternoon and clears her for home setting. P: home today as noted. PCP followup. CM Discharge Assessment Start: 09/01/20 15:05 Freq: Status: Active Protocol: Document 09/01/20 15:06 ITV (Rec: 09/01/20 15:09 IT [id number]) Discharge Planning Assessment Advance Directives? No History Provided By Patient,Medical Record Prior Living Arrangements House Household Members family,other Comment her son lives with her. A tenant/friend of the son, also resides in the home Type of transporation used prior to Relies on Others admit Comment no longer drives since last CVA: January 2020 which affected her vision Independent with ADL's Yes: with basics Is patient alert and oriented? Yes DME Already Rented / Owned FWW / Walker Comment uses 4ww Discharge Plan Home Review Status In Process
--- NOTE | 2020-09-01 16:06 | PC.NURSE ---
Discharge instructions provided verbally to patient and friend/support person. IV removed from right forearm, intact. Patient has no further questions at this time. The patient states she has a follow up appointment with her PCP next Friday, the . Patient left via WC to private vehicle in stable condition.
--- NOTE | 2020-09-01 18:15 | PM.DS.1 ---
History of Present Illness History of Present Illness Date Patient Seen: 09/01/20 Time Patient Seen: 18:15 Chief complaint: extreme dizziness, nausea and vomiting Narrative: Miss Jazmin Barragan is a 54-year-old female with a past medical history significant for hypertension, diabetes type 2, COPD on home oxygen 2 L, prior CVA, and dyslipidemia who presents to the hospital with persistent nausea and vomiting for the past 2 days. Patient states that her symptoms worsen with movement, and happened at least a couple times every hour for the past 2 days. It is woken her from sleep as well a couple times overnight. She has not been able to eat or drink anything really and till she got some medications in the emergency room today. She has some vision loss from her prior stroke but denies any new visual changes. She does get feelings of her heart skipping a beat which have been going on for years, but has not noticed any recently. She denies any headache. She has not had any chest pain or shortness of breath, and she denies fevers or chills. She has chronic bilateral lower extremity tingling from her diabetes, but denies any numbness, weakness, facial droop, or slurred speech. She does endorse leaning somewhat more to her left side and imbalance which has been worse over past 2 days as well. In the emergency room, her vital signs were unremarkable. She is at her baseline oxygen level saturating at 97%. Initial laboratory evaluation showed a mild leukocytosis at 13.7, but a normal hemoglobin and normal platelet count. Chemistries showed a mild increase in her creatinine to 1.07, from around 0.6 during her prior admission. Glucose was 182, and there were other significant lab abnormalities. Troponin level was added on and is currently pending. COVID-[address] head showed a new acute or subacute infarct in the left cerebellar hemisphere without evidence of hemorrhage as well as her right occipital and right caudate lobe but old infarcts. Discharge Providers Provider Date of admission: 08/31/20 15:40 Discharge Date: 09/01/20 Primary care physician: Desmond Mi DO Consults: 08/31/20 17:46 Consult to Occupational Therapy Evaluate & Treat Comment: Physician Instructions: Evaluate and treat Consult to Physical Therapy Evaluate & Treat Comment: Physician Instructions: Evaluate and Treat 08/31/20 18:49 Consult to Respiratory Therapy Evaluate & Treat Comment: Physician Instructions: Evaluate and treat Discharge provider: Paramjit Celeste DO Summary Hospital Course Discharge Diagnosis: 1. Acute CVA, left cerebellum, present on admission, active. 2. Diabetic type 2 with hyperglycemia, with diabetic neuropathy, present on admission, active. 3. Chronic obstructive lung disease with chronic hypoxemic respiatory failure, oxygen dependent, present on admission, active. 4. Essential hypertension, present on admission, chronic 5. Dyslipidemia, chronic, active Hospital Course: Miss Jazmin Barragan is a 54-year-old female with a past medical history significant for hypertension, diabetes type 2, COPD on home oxygen 2 L, prior CVA, and dyslipidemia who presented to the hospital with persistent nausea and vomiting for the past [address] scan showed a new infarct in the left cerebellum which was confirmed by MRI imaging. Echocardiogram was unremarkable. Given the distribution of her multiple infarcts there is high concern for atrial fibrillation and the patient was started on apixaban while admitted. The patient, however, could not afford apixaban and was instead discharged on oral warfarin. She also stated that the deductible was too high for Lovenox injections. She was advised on the possible risks of not performing bridging therapy, which she was able to understand. I asked her to follow-up as soon as possible with her primary care for further management of her Coumadin. Her symptoms were very well controlled and she improved more quickly than expected on meclizine and Zofran. I asked that she intermittently hold these medications to assess her symptoms at home. She was evaluated by physical therapy and asked to use her 4 wheeled walker for some imbalance but was cleared for discharge home. Time Spent with Patient Time spent: Greater than 30 minutes Time spent discussing smoking cessation with patient: 3 to 10 minutes Exam Vital Signs (past 8 hours): - 09/01/20 11:13 Temperature 97.0 F L Pulse Rate 89 Respiratory Rate 16 Blood Pressure 106/58 L Pulse Oximetry 96 Oxygen Delivery Method Nasal Cannula Oxygen Flow Rate 2 Narrative Exam Narrative: GENERAL APPEARANCE: Well developed, well nourished, in no acute distress. SKIN: Inspection of the skin reveals no rashes, ulcerations or petechiae. HEENT: Normocephalic atraumatic, extraocular muscles are intact, oropharynx is clear and mucous membranes are moist, neck is supple without adenopathy NECK: Supple and symmetric. There was no thyroid enlargement, and no tenderness, or masses were felt. CHEST: Normal AP diameter and normal contour without any kyphoscoliosis. LUNGS: Auscultation of the lungs revealed no wheezes, rhonchi, or rales. CARDIOVASCULAR: There was a regular rate and rhythm without any murmurs, gallops, rubs. Peripheral pulses were 2+ and symmetric. ABDOMEN: Soft and nontender with normal bowel sounds. No ascites was noted. MUSCULOSKELETAL: There was no tenderness or effusions noted. Muscle strength and tone were normal. EXTREMITIES: No cyanosis, clubbing or edema. NEUROLOGIC: Bilateral lower extremity neuropathy with slightly diminished sensation. No nystagmus. Strength is +5/5 in all extremities. Cranial nerves 2-12 are grossly intact bilaterally. Objective Labs Result Diagrams: 09/01/20 05:09 09/01/20 05:09 Labs: Laboratory Results - last 24 hr 08/31/20 09/01/20 09/01/20 13:55 05:09 05:09 WBC 11.6 H RBC 4.31 Hgb 13.1 Hct 39.6 MCV 92.0 MCH 30.4 MCHC 33.1 RDW 13.6 Plt Count 217 Neut % (Auto) 44.8 L Lymph % (Auto) 45.5 H Bosque % (Auto) 8.2 Eos % (Auto) 1.0 L Baso % (Auto) 0.5 Neut # (Auto) 5200 Lymph # (Auto) 5300 H Bos[place] # (Auto) 1000 H Eos # (Auto) 100 Baso # (Auto) 100 Sodium 140 Potassium 4.0 Chloride 106 Carbon Dioxide 32 BUN 23 H Creatinine 0.85 Estimated GFR > 60.0 BUN/Creatinine Ratio 27.1 H Glucose 110 H Hemoglobin A1c Calcium 8.5 Magnesium 2.1 Total Bilirubin 0.6 Conjugated Bilirubin 0.0 Unconjugated Bilirubin 0.4 AST 23 ALT 20 Alkaline Phosphatase 59 Troponin I < 0.012 Total Protein 6.1 L Albumin 3.6 Globulin 2.5 Albumin/Globulin Ratio 1.4 Triglycerides 86 Cholesterol 133 L LDL Cholesterol, Calc 67 HDL Cholesterol 49 TSH 09/01/20 09/01/20 05:09 05:09 WBC RBC Hgb Hct MCV MCH MCHC RDW Plt Count Neut % (Auto) Lymph % (Auto) Bosque % (Auto) Eos % (Auto) Baso % (Auto) Neut # (Auto) Lymph # (Auto) Bosque # (Auto) Eos # (Auto) Baso # (Auto) Sodium Potassium Chloride Carbon Dioxide BUN Creatinine Estimated GFR BUN/Creatinine Ratio Glucose Hemoglobin A1c 6.0 Calcium Magnesium Total Bilirubin Conjugated Bilirubin Unconjugated Bilirubin AST ALT Alkaline Phosphatase Troponin I Total Protein Albumin Globulin Albumin/Globulin Ratio Triglycerides Cholesterol LDL Cholesterol, Calc HDL Cholesterol TSH 0.65 Discharge Plan Discharge Plan Patient Disposition: Home Discharge comment: You were admitted to the hospital after another stroke. Given multitude of strokes in different arteries of your brain there is a high concern for atrial fibrillation. Given your insurance you were started on warfarin, and ideally we would give you injections but these are also prohibitively expensive. Please follow-up with your primary care provider as soon as possible to figure out your ideal warfarin dosing and to check on your symptoms. Please try and continue eating without taking the anti nausea medications if you are able to. No other medication changes are necessary other than discontinuation of your aspirin. Discharge orders & Medications Prescriptions: New meclizine 25 mg tablet 25 mg PO Q6HR PRN (Reason: Vertigo) 14 Days Qty: 40 RF: 0 ondansetron HCl 4 mg tablet 4 mg PO Q8H PRN (Reason: nausea and vomiting) 14 Days Qty: 30 RF: 0 warfarin 5 mg tablet 5 mg PO DAILY 14 Days Qty: 14 RF: 0 Continued atorvastatin 40 mg tablet 40 mg PO BEDTIME Qty: 90 RF: 2 glipizide 5 mg tablet extended release 24hr 5 mg PO DAILY Qty: 90 RF: 2 lisinopril-hydrochlorothiazide 20-12.5 mg tablet 1 tab PO DAILY Qty: 90 RF: 2 metformin 1,000 mg tablet 1,000 mg PO BID Qty: 180 RF: 2 pioglitazone [Actos] 15 mg tablet 15 mg PO DAILY Qty: 90 RF: 2 lorazepam 0.5 mg tablet 0.5 mg PO BID PRN (Reason: anxiety) Qty: 30 RF: 1 nifedipine 30 mg tablet extended release 60 mg PO DAILY RF: 0 Discontinued aspirin 325 mg tablet 325 mg PO DAILY Qty: 30 RF: 0 No Action (DME) Disabled Parking Permit Qty: 1 RF: 0 Follow up/Referrals: Desmond Mi, [Primary Care Provider] - 3-5 Days Diet/Activity/Treatments Diet: Diet as Tolerated Activity: As tolerated Visit Report/Discharge Packet Instructions: How to Prevent Falls, Cerebellar Stroke, Meclizine, DI for Warfarin Therapy Visit Report Forms: Patient Portal/API, Stroke Signs & Symptoms Discharge Data Primary Care Provider: Desmond Mi Discharges patient from system. Discharge Date/Time: 09/01/20 16:08 Quality VTE Deep Vein Thrombosis/Pulmonary Embolism Present on Admission: No
--- NOTE | 2020-09-01 18:18 | DI.ECHO.S_ITS ---
[facility] +---------+ : : [address] : : : : [id number] : : : : Phone: [phone]+ Echocardiogram Report + + :Name: BEE POOLE Study Date: 09/01/2020 Height: 63 in : :[employer] [facility] Weight: 177 lb : : Gender: Female BSA: 1.8 m2 : :: 1965 Age: 54 yrs BP: 111/66 mmHg: :Reason For Study: CVA : : Performed By: Sierra Quintana : :Referring: SIDRA JENKINS : + + Interpretation Summary The study quality was technically difficult. The patient was in normal sinus rhythm during the exam. The left ventricle is normal in size. The left ventricle is hyperdynamic. The ejection fraction is estimated to be 70-75%. There has been no significant change in LV EF since the previous exam. The right ventricle grossly appears normal in size with probable normal systolic function. All the valves were not well visualized. However no gross significant abnormality seen. The IVC is of normal diameter and collapses greater than 50% with a sniff. This suggests a low right atrial pressure of 3 mm Hg. Procedure: A two-dimensional transthoracic echocardiogram with color flow and Doppler was performed. Comparison is made with the echocardiogram of 02/01/2020. The study quality was technically difficult. The patient was in normal sinus rhythm during the exam. Left Ventricle: The left ventricle is normal in size. Proximal septal thickening is noted. There is no echo evidence for significant left ventricular outflow tract obstruction. There is no thrombus. The ejection fraction is estimated to be 70-75%. The left ventricle is hyperdynamic. There has been no significant change since the previous exam. There are no obvious focal wall motion abnormalities noted but poor endocardial definition reduces the sensitivity for the detection of such. Diastolic parameters suggest a relaxation abnormality of the left ventricle, consistent with probable normal filling pressures. Right Ventricle: The right ventricle grossly appears normal in size with probable normal systolic function. The right ventricle appears to be hypertrophied. Atria: The left atrial size is normal. Right atrium not well visualized. There is no Doppler evidence for an interatrial shunt. Mitral Valve: The mitral valve is grossly normal. There is no mitral regurgitation noted. Aortic Valve: The aortic valve is not well visualized. There is no aortic valve stenosis. No aortic regurgitation is present. Tricuspid Valve: The tricuspid valve is not well visualized. Pulmonary artery pressures cannot be estimated because of the lack of a measurable TR jet velocity but the IVC suggests a CVP of around 3 mmHg. Pulmonic Valve: The pulmonic valve is not well visualized. Great Vessels: The aortic root is not well visualized but is probably normal size. The ascending aorta is normal in size. The aortic arch could not be visualized. The IVC is of normal diameter and collapses greater than 50% with a sniff. This suggests a low right atrial pressure of 3 mm Hg. Pericardium/ Pleura There is an anterior echo-free space consistent with a fat pad. There is no pleural effusion. MMode/2D Measurements & Calculations LVIDd: 3.8 cm asc Aorta Diam: 3.2 cm LVIDs: 2.4 cm FS: 35.1 % IVSd: 0.82 cm LVPWd: 0.97 cm LV willard. diameter/BSA (cm/m^2): 2.0 LV sys. diameter/BSA (cm/m^2): 1.3 LA A2 area: 12.9 cm2 IVC diam: 1.9 cm LA A4 area: 11.5 cm2 LA length (vol): 4.7 cm LA vol: 26.9 ml LA vol index: 14.6 ml/m2 Doppler Measurements & Calculations Ao V2 max: 159.3 cm/sec LVOT Max Job: 108.5 cm/sec Ao V2 mean: 97.2 cm/sec LV V1 max P.7 mmHg Ao max P.2 mmHg LV V1 VTI: 17.5 cm Ao mean P.3 mmHg sev ratio: 0.73 Ao V2 VTI: 24.0 cm MV E max job: 77.2 cm/sec PA V2 max: 81.9 cm/sec MV A max job: 80.2 cm/sec PA V2 mean: 52.2 cm/sec MV E/A: 0.96 PA mean P.3 mmHg Med Peak E' Job: 8.2 cm/sec PA Accel Time: 0.08 sec E/E' med: 9.4 Lat Peak E' Job: 8.8 cm/sec E/E' lat: 8.8 E/e' average: 9.1 MV dec time: 0.19 sec MV P1/2t: 56.5 msec MV P1/2t max job: 78.0 cm/sec MVA(P1/2t): 3.9 cm2 Reading Physician:02:47 PM
== END 2020-09-01 16:08 | disposition home or self-care (01) | DRG 65 ==
LOC: ED 13:38 → AC 15:41
PROVIDERS: Admitting Provider Internal Medicine; Emergency Provider Emergency Medicine; PCP Family Medicine; Referring Provider Emergency Medicine; Visit Provider Internal Medicine
DX: I63.9 Cerebral infarction, unspecified (principal); J96.11 Chronic respiratory failure with hypoxia; J44.9 Chronic obstructive pulmonary disease, unspecified; Z99.81 Dependence on supplemental oxygen; I48.91 Unspecified atrial fibrillation; I10 Essential (primary) hypertension; E11.65 Type 2 diabetes mellitus with hyperglycemia; E78.5 Hyperlipidemia, unspecified; F17.210 Nicotine dependence, cigarettes, uncomplicated; Z79.84 Long term (current) use of oral hypoglycemic drugs
CPT/HCPCS: 36415; 70450; 70548; 70553; 80048; 80053; 80061; 80076; 82962; 83036; 83690; 83735; 84443; 84484; 85025; 87635; 93005; 93306; 94640; 94760; 96361; 96374; 97161; 97165; 97535; 99285; J2405

== ENCOUNTER 2020-10-03 18:08 | Observation (INO) | payer MEDICARE, SELFPAY ==
[2020-08-31 17:10] VITALS: BMI 31.4
[2020-10-03] VITALS (23 sets, daily range): BP systolic 98–142; BP diastolic 57–81; PULSE 86–107; RESP 16–50; TEMP 36.2–36.6; O2SAT 92–98; BMI 31.8
--- NOTE | 2020-10-03 18:49 | DI.CT.S_ITS ---
PROCEDURE: CT STROKE INDICATIONS: severe sudden dizziness, nausea similar to prior CVA TECHNIQUE: Noncontrast 4.5 mm thick angled axial sections acquired from the foramen magnum to the vertex, with coronal reformats. For radiation dose reduction, the following was used: automated exposure control, adjustment of mA and/or kV according to patient size. COMPARISON: [facility], MR, MR STROKE, 09/01/2020, 10:30. [facility], CT, CT HEAD/BRAIN WO CON, 08/31/2020, 14:28. FINDINGS: Image quality: Excellent. CSF spaces: Basal cisterns are patent. No extra-axial fluid collections. Ventricles are normal in size and shape. Brain: No midline shift. No intracranial masses or hemorrhage. Wyatt-white matter interface is normal. Old right occipital infarction is noted. Skull and face: Calvarium and visualized facial bones are intact, without suspicious lesions. Sinuses: Visualized sinuses and mastoids are clear. IMPRESSION: 1. No acute intracranial process. The above findings were discussed with Dr. Ofelia Reid on 10/03/2020 at 7:04 p.m.. This study fulfills neurological imaging criteria for inclusion or exclusion of acute stroke therapies based on available published neurological imaging guidelines. Dictated by: Vanessa Mathew M.D. on 10/03/2020 at 19:04 Approved by: Vanessa Mathew M.D. on 10/03/2020 at 19:06
--- NOTE | 2020-10-03 18:50 | ED.NEUROSD ---
HPI - Neuro Symptoms/Deficit General Chief Complaint: Neuro Symptoms/Deficit Stated Complaint: EXTREME DIZZINESS AND NAUSEA Time Seen by Provider: 10/03/20 18:47 Source: patient Mode of arrival: Ambulatory Limitations: no limitations History of Present Illness HPI Narrative: 54-year-old woman with a history of atrial fibrillation, hypertension, type 2 diabetes, COPD on 2 L of oxygen at home, continued half pack per day smoking, dyslipidemia, prior CVA and on August had a new infarct in the left cerebellum confirmed by MRI. She was started on Coumadin at time of discharge and most recent INR September 29 was 3.4. Patient was in her usual state of health and at 5:00 p.m. this evening had a significant episode of dizziness, lost her balance, almost fell to the floor, severe nausea without vomiting and difficulty walking. Her son was immediately available and able to help get her to the car with the use of her walker. On arrival she continues to complain of severe dizziness without nystagmus and demonstrates mild right leg weakness. On Anticoagulants: Yes (warfarin) Related Data Previous Rx's Medication Instructions Recorded Disabled Parking Permit #1 each 04/25/20 lorazepam 0.5 mg tablet 0.5 mg PO BID PRN #30 tab 05/01/20 atorvastatin 40 mg tablet 40 mg PO BEDTIME #90 tab 08/01/20 glipizide 5 mg tablet, extended 5 mg PO DAILY #90 tab 08/01/20 release 24 hr lisinopril 20 1 tab PO DAILY #90 tab 08/01/20 mg-hydrochlorothiazide 12.5 mg tablet metformin 1,000 mg tablet 1,000 mg PO BID #180 tab 08/01/20 pioglitazone 15 mg tablet 15 mg PO DAILY #90 tab 08/01/20 prochlorperazine maleate 10 mg 10 mg PO BID PRN #60 tab 09/08/20 tablet warfarin 10 mg tablet 10 mg PO DAILY #90 tab 09/22/20 nifedipine 30 mg tablet,extended 30 mg PO DAILY #90 tab 09/25/20 release Allergies Allergy/AdvReac Type Severity Reaction Status Date / Time azithromycin Allergy Severe ARM PAIN Verified 10/03/20 18:41 AND FACIAL REDNESS DURING INFUSION naproxen Allergy Severe Hives Verified 10/03/20 18:41 penicillin G Allergy Severe RASH Verified 10/03/20 18:41 codeine Allergy Mild RASH Verified 10/03/20 18:41 hydrocodone Allergy Mild RASH Verified 10/03/20 18:41 Review of Systems Review of Systems Narrative: Pertinent positive and negative findings as per HPI Remainder of review of systems is otherwise unremarkable for Constitutional: Fevers, chills, weakness ENT: No sore throat, neck pain, ear pain CV: Chest pain, palpitations, dyspnea on exertion GI: Nausea, vomiting, diarrhea, change in bowel habits, black or bloody stools : Dysuria, hematuria, flank pain MS: Muscle weakness, numbness, joint swelling or warmth Skin: Rashes, nonhealing lesions Patient History Medical History Anticoagulation adequate with anticoagulant therapy (Acute) Atrial fibrillation (Acute) Chronic obstructive pulmonary disease (10/14/14) Diabetes (Acute) Diabetic neuropathy (Acute) Dyslipidemia (Acute) End stage chronic obstructive pulmonary disease (Acute) Generalized anxiety disorder (Acute) Hypertension (Acute) Surgical History History of (Acute) History of local excision of skin lesion (Acute) Family History Father Alcoholic cirrhosis Mother Age: 77 Diabetes mellitus type II, controlled CVA (cerebral infarction) Social History household members: family and other Smoking Status: Current every day smoker alcohol intake: former Smoking Status: Current every day smoker tobacco type: cigarettes alcohol intake frequency: holidays/special occasions only Substance Use Type: does not use Exam Narrative Exam Narrative: General: Generally unhealthy appearing, pale anxious complaining of both nausea and dizziness. Able to give a complete and coherent history. HEENT: Moist mucous membranes, reactive pupils bilaterally, left sclera is slightly injected. No nystagmus Neck: No JVD, supple Respiratory: Lungs are clear to auscultation, no wheezing no rales no rhonchi. Full and symmetrical air movement Cardiac: Regular rate and rhythm no murmurs no bruits Abdomen: Soft nontender good bowel tones, no flank pain Skin: Warm and dry, no rashes Neurologic: Inferior left-sided hemianopia (she states since January), normal sensation, slight decrease in strength in the right leg which is new Extremities: Clubbing of nails, No trauma, well perfused Psych: Cooperative, appropriate insight and affect Initial Vital Signs Initial Vital Signs: Vital Signs Temperature 97.8 F 10/03/20 18:33 Pulse Rate 89 10/03/20 18:33 Respiratory Rate 22 10/03/20 18:33 Blood Pressure 142/70 H 10/03/20 18:33 Pulse Oximetry 94 10/03/20 18:33 Scores NIH Stroke Scale Level of Conciousness: Alert, keenly responsive Ask month/age: Answers both questions correctly. Open/close eyes, close hand: Performs both tasks correctly Best gaze horizontal: Normal Visual ashraf: Partial hemianopia Facial palsy: Normal symetrical movement Left arm drift: No drift for full 10 sec Right arm drift: No drift for full 10 sec Left leg drift: No drift for full 5 sec Right leg drift: Drifts down, not to bed Limb ataxia: Present in one limb Sensory on face/arms/legs: Normal, no sensory loss Best language: No aphasia, normal Dysarthria: Normal Extinction or inattention: No abnormality Total NIH Stroke scale score: 3 Course Orders Ordered: ED Orders 10/03/20 18:49 CT Stroke Stat 10/03/20 18:54 EKG-12 Lead Stat 10/03/20 19:00 Basic Metabolic Panel Stat Complete Blood Count AUTO DIFF Stat Partial Thromboplastin Time Stat Prothrombin Time INR Stat Troponin & CK Cardiac Panel Stat 10/03/20 19:43 UA Complete [Urinalysis and Microscopic] Stat Urine Drug Screen, Rapid Stat 10/03/20 20:43 CT angio head and neck Stat 10/03/20 21:12 COVID19 Stat Sodium Chloride (Normal Saline 0.9%) 1,000 mls @ 150 mls/hr IV CONT SHANIQUE Last Admin: 10/03/20 19:41 Dose: 150 mls/hr Documented by: LI Discontinued Medications Ondansetron HCl (Zofran) 4 mg IV NOW ONE Stop: 10/03/20 18:50 Last Admin: 10/03/20 19:40 Dose: 4 mg Documented by: LI Vital Signs Vital signs: Vital Signs - 8 hr 10/03/20 18:33 10/03/20 18:55 10/03/20 18:57 Temperature 97.8 F Pulse Rate 89 91 H 88 Respiratory Rate 22 22 Blood Pressure 142/70 H 133/76 Pulse Oximetry 94 92 95 10/03/20 19:00 10/03/20 19:03 10/03/20 19:39 Temperature Pulse Rate 88 91 H 98 H Respiratory Rate 25 H 23 Blood Pressure 137/73 Pulse Oximetry 96 94 98 10/03/20 19:40 10/03/20 19:50 10/03/20 20:00 Temperature Pulse Rate 97 H 86 89 Respiratory Rate 20 16 21 Blood Pressure 136/71 103/63 102/67 Pulse Oximetry 97 96 96 10/03/20 20:10 10/03/20 20:20 10/03/20 20:30 Temperature Pulse Rate 88 90 87 Respiratory Rate 19 17 22 Blood Pressure 102/69 98/57 L 104/61 Pulse Oximetry 95 95 94 10/03/20 20:40 10/03/20 20:50 10/03/20 21:11 Temperature Pulse Rate 88 89 100 H Respiratory Rate 21 20 50 H Blood Pressure 107/65 107/68 Pulse Oximetry 93 93 96 10/03/20 21:13 10/03/20 21:20 10/03/20 21:30 Temperature Pulse Rate 107 H 91 H 88 Respiratory Rate 29 H 20 21 Blood Pressure 119/72 126/73 124/76 Pulse Oximetry 95 96 93 MDM - Neuro Symptoms/Deficit Medical Records Attestation: I reviewed the patient's medical records. Lab Data Attestation: I reviewed the patient's lab results. Result diagrams: 10/03/20 19:00 10/03/20 19:00 Labs: Lab Results 10/03/20 10/03/20 10/03/20 Range/Units 19:00 19:00 19:00 WBC 11.4 H (4.5-11.0) X10^3/uL RBC 4.81 (4.0-5.2) X10^6/uL Hgb 14.8 (12.0-16.0) g/dL Hct 44.0 (36-46) % MCV 91.4 (80-100) fL MCH 30.7 (26-34) PG MCHC 33.6 (30-36) % RDW 14.0 (11.6-14.8) % Plt Count 252 (150-400) X10^3/uL Neut % (Auto) 59.4 (50-75) % Lymph % (Auto) 32.5 (25-40) % [place] % (Auto) 6.5 (3-14) % Eos % (Auto) 0.9 L (2-4) % Baso % (Auto) 0.7 (0-2) % Neut # (Auto) 6800 (0814-3394) /uL Lymph # (Auto) 3700 (0937-5211) /uL [place] # (Auto) 700 (0-900) /uL Eos # (Auto) 100 (0-450) /uL Baso # (Auto) 100 (0-100) /uL PT 28.8 H (10.1-12.7) SECONDS INR 2.5 H (0.9-1.3) APTT 46 H D (26.4-36.2) SECONDS Sodium 141 (137-145) mmol/L Potassium 3.7 (3.4-5.1) mmol/L Chloride 103 (98-107) mmol/L Carbon Dioxide 33 H (22-32) mmol/L BUN 15 (7-17) mg/dL Creatinine 0.71 (0.52-1.04) mg/dL Estimated GFR > 60.0 (>60) mL/min BUN/Creatinine Ratio 21.1 (6-22) Glucose 124 H (70-100) mg/dL Calcium 9.3 (8.4-10.2) mg/dL Total Creatine Kinase 41 (30-135) U/L CK-MB (CK-2) TNP CK-MB (CK-2) Rel Index TNP Troponin I < 0.012 (0.01-0.034) ng/mL Urine Color Urine Appearance Urine pH (4.5-8.0) Ur Specific [place] (1.000-1.035) Urine Protein (Negative) Urine Glucose (UA) (Negative) g/dL Urine Ketones (NEGATIVE) Urine Occult Blood (Negative) Urine Nitrate (Negative) Urine Bilirubin (NEGATIVE) Urine Urobilinogen (0.2) E.U./dL Ur Leukocyte Esterase (NEGATIVE) Urine RBC (0-5/HPF) Urine WBC (0-5/HPF) Ur Squamous Epith Cells (0-5/HPF) Urine Bacteria (None) Ur Culture Indicated? U Opiates 300ng/mL cut (Negative) Ur Oxycodone Screen (Negative) Urine Methadone Screen (Negative) Ur Barbiturates Screen (Negative) U Tricyclic Antidepress (Negative) Ur Phencyclidine Scrn (Negative) Ur Amphetamines Screen (Negative) U Methamphetamines Scrn (Negative) Ur MDMA Scrn (Ecstasy) (Negative) U Benzodiazepines Scrn (Negative) Urine Cocaine Screen (Negative) U Marijuana (THC) Screen (Negative) COVID-19 PCR (Negative) 10/03/20 10/03/20 10/03/20 Range/Units 19:43 19:43 21:12 WBC (4.5-11.0) X10^3/uL RBC (4.0-5.2) X10^6/uL Hgb (12.0-16.0) g/dL Hct (36-46) % MCV (80-100) fL MCH (26-34) PG MCHC (30-36) % RDW (11.6-14.8) % Plt Count (150-400) X10^3/uL Neut % (Auto) (50-75) % Lymph % (Auto) (25-40) % [place] % (Auto) (3-14) % Eos % (Auto) (2-4) % Baso % (Auto) (0-2) % Neut # (Auto) (5003-8981) /uL Lymph # (Auto) (5570-4179) /uL [place] # (Auto) (0-900) /uL Eos # (Auto) (0-450) /uL Baso # (Auto) (0-100) /uL PT (10.1-12.7) SECONDS INR (0.9-1.3) APTT (26.4-36.2) SECONDS Sodium (137-145) mmol/L Potassium (3.4-5.1) mmol/L Chloride (98-107) mmol/L Carbon Dioxide (22-32) mmol/L BUN (7-17) mg/dL Creatinine (0.52-1.04) mg/dL Estimated GFR (>60) mL/min BUN/Creatinine Ratio (6-22) Glucose (70-100) mg/dL Calcium (8.4-10.2) mg/dL Total Creatine Kinase (30-135) U/L CK-MB (CK-2) CK-MB (CK-2) Rel Index Troponin I (0.01-0.034) ng/mL Urine Color Yellow Urine Appearance Clear Urine pH 5.0 (4.5-8.0) Ur Specific [place] 1.010 (1.000-1.035) Urine Protein Negative (Negative) Urine Glucose (UA) Negative (Negative) g/dL Urine Ketones Negative (NEGATIVE) Urine Occult Blood Negative (Negative) Urine Nitrate Negative (Negative) Urine Bilirubin Negative (NEGATIVE) Urine Urobilinogen 0.2 (0.2) E.U./dL Ur Leukocyte Esterase Negative (NEGATIVE) Urine RBC 0-1/hpf (0-5/HPF) Urine WBC 0-1/hpf (0-5/HPF) Ur Squamous Epith Cells 0-1 /hpf (0-5/HPF) Urine Bacteria None seen (None) Ur Culture Indicated? Cult not indicated U Opiates 300ng/mL cut Negative (Negative) Ur Oxycodone Screen Negative (Negative) Urine Methadone Screen Negative (Negative) Ur Barbiturates Screen Negative (Negative) U Tricyclic Antidepress Negative (Negative) Ur Phencyclidine Scrn Negative (Negative) Ur Amphetamines Screen Negative (Negative) U Methamphetamines Scrn Negative (Negative) Ur MDMA Scrn (Ecstasy) Negative (Negative) U Benzodiazepines Scrn Negative (Negative) Urine Cocaine Screen Negative (Negative) U Marijuana (THC) Screen Negative (Negative) COVID-19 PCR Negative (Negative) Point of Care Testing Glucose POC 124 Imaging Data MRI 08/31/2020: Radiologist's Impression: BRAIN MR ANGIOGRAM: 1. Absence of flow in the left posterior inferior cerebral artery approximately 2 centimeters distal to the origin of the vessel compatible with occlusion. 2. Multifocal mild atherosclerotic stenosis involving the posterior cerebral arteries bilaterally with moderate, short segment atherosclerotic stenosis involving the P1 segment of the right posterior cerebral artery. NECK MR ANGIOGRAM: 1. Internal carotid arteries are fully patent. 2. Origins of the vertebral arteries poorly visualized due to motion artifact. There is normal flow within the well visualized portions of the vertebral arteries Dictated by: Lou Topete MD, PhD on 09/01/2020 at 11:31 Echo 09/01/2020: Radiologist's Impression: Name: BEE POOLE Study Date: 09/01/2020 Height: 63 in : :[facility] Weight: 177 lb : : Gender: Female BSA: 1.8 m2 : :: 1965 Age: 54 yrs BP: 111/66 mmHg: :Reason For Study: CVA : : Performed By: Sierra Quintana : :Referring: SIDRA JENKINS : + + Interpretation Summary The study quality was technically difficult. The patient was in normal sinus rhythm during the exam. The left ventricle is normal in size. The left ventricle is hyperdynamic. The ejection fraction is estimated to be 70-75%. There has been no significant change in LV EF since the previous exam. The right ventricle grossly appears normal in size with probable normal systolic function. All the valves were not well visualized. However no gross significant abnormality seen. CT scan - head: Radiologist's Impression: FINDINGS: Image quality: Excellent. CSF spaces: Basal cisterns are patent. No extra-axial fluid collections. Ventricles are normal in size and shape. Brain: No midline shift. No intracranial masses or hemorrhage. Wyatt-white matter interface is normal. Old right occipital infarction is noted. Skull and face: Calvarium and visualized facial bones are intact, without suspicious lesions. Sinuses: Visualized sinuses and mastoids are clear. IMPRESSION: 1. No acute intracranial process. The above findings were discussed with Dr. Ofelia Reid on 10/03/2020 at 7:04 p.m.. This study fulfills neurological imaging criteria for inclusion or exclusion of acute stroke therapies based on available published neurological imaging guidelines. Dictated by: Vanessa Mathew M.D. on 10/03/2020 at 19:04 Head and Neck CTA: Radiologist's Impression: FINDINGS: Image quality: Excellent. BRAIN: CSF spaces: Ventricles are normal in size and shape. Basal cisterns are patent. No extra-axial fluid collections. Brain: No midline shift. No intracranial bleeds or masses. Wyatt-white matter interface appears intact. Old right occipital infarction. Skull and face: Calvarium and facial bones appear intact, without suspicious lesions. Orbits appear normal. Sinuses: Sinuses and mastoids are clear. HEAD CT ANGIOGRAPHY: Anterior circulation: Intracranial internal carotid arteries are normal in size and flow. The flow within the paired anterior cerebral arteries is normal and symmetric. The flow within the middle cerebral arteries is normal and symmetric. The anterior communicating artery is seen. No aneurysms are seen. Posterior circulation: The posterior circulation demonstrates a vertebral artery co-dominance. Basilar artery and posterior cerebral arteries demonstrate no areas of hemodynamically significant stenosis, vascular occlusion or aneurysmal dilation. Posterior communicating arteries are within normal limits. NECK CT ANGIOGRAPHY: The origins of the left and right common, internal and external carotid arteries demonstrate no areas of hemodynamically significant stenosis, vascular occlusion or aneurysmal dilation. Origins of the left and right vertebral arteries demonstrate no areas of hemodynamically significant stenosis, vascular occlusion or aneurysmal dilation. Bovine arch is present consistent with congenital anatomy. Limited, visualized portions of the subclavian vasculature are unremarkable. IMPRESSION: 1. No acute intracranial process. Old right occipital infarction. 2. No areas of hemodynamically significant stenosis, vascular occlusion or aneurysmal dilation within the anterior or posterior circulation. 3. No areas of hemodynamically significant stenosis, vascular occlusion or aneurysmal dilation within the neck vasculature. Any quantitative measurements of stenosis were performed using NASCET criteria. Dictated by: Vanessa Mathew M.D. on 10/03/2020 at 21:33 ECG Data Attestation: I personally reviewed and interpreted this ECG as follows: Interpretation: Sinus rhythm at a rate of [address] T wave changes Right axis deviation No acute ischemia MDM Narrative Medical decision making narrative: 54-year-old woman with prior strokes and posterior circulation vascular changes. Most recent stroke was 1 month ago and she currently is on Coumadin and anticoagulated 2.4. The acute onset of dizziness weakness all consistent with a recurrent posterior circulation stroke. Care is reviewed with on-call Neurology who did recommend CTA to confirm no large vessels occlusion was appreciated prior to admission. Given prior MRIs and suspected posterior circulation abnormalities interventional radiology would not be appropriate unless a large vessel occlusion was appreciated on the CTA. Symptoms of the severe dizziness and new slight right leg numbness along with old left partial hemianopia are all appreciated. Will need admission for further stroke evaluation and treatment. Due to recent stroke and INR of 2.4 patient is not a tPA candidate and this is reviewed worth her at time of admission. She will be admitted to the hospitalist service. Discharge Plan Departure Patient Disposition: Admitted As Inpatient Clinical Impression: CVA (cerebral vascular accident) Qualifiers: CVA mechanism: other Qualified Code(s): I63.89 - Other cerebral infarction Referrals: Desmond Mi DO [Primary Care Provider] -
[2020-10-03 19:09] LABS: Add Manual Diff / Slide Review NO; Basophils Absolute Auto 100 /uL (0-100); Basophils Percent Auto 0.7 % (0-2); Eosinophils Absolute Auto 100 /uL (0-450); Eosinophils Percent Auto 0.9 % (2-4); Hemoglobin 14.8 g/dL (12.0-16.0); Lymphocytes Absolute Auto 3700 /uL (1100-4500); Lymphocytes Percent Auto 32.5 % (25-40); Mean Corpuscular HGB Conc 33.6 % (30-36); Mean Corpuscular Hemoglobin 30.7 PG (26-34); Mean Corpuscular Volume 91.4 fL (80-100); Monocytes Absolute Auto 700 /uL (0-900); Monocytes Percent Auto 6.5 % (3-14); Neutrophils Absolute Auto 6800 /uL (1500-7000); Neutrophils Percent Auto 59.4 % (50-75); Platelet Count 252 X10^3/uL (150-400); Red Blood Cell Count 4.81 X10^6/uL (4.0-5.2); White Blood Cell Count 11.4 X10^3/uL (4.5-11.0)
[2020-10-03 19:16] LABS: INR 2.5 (0.9-1.3); Prothrombin Time 28.8 SECONDS (10.1-12.7)
[2020-10-03 19:19] LABS: PTT Partial Thromboplastin Tim 46 SECONDS (26.4-36.2)
[2020-10-03 19:23] LABS: BUN Creatinine Ratio 21.1 (6-22); Blood Urea Nitrogen 15 mg/dL (7-17); Calcium 9.3 mg/dL (8.4-10.2); Carbon Dioxide 33 mmol/L (22-32); Chloride 103 mmol/L (98-107); Creatine Kinase 41 U/L (30-135); Estimated Glomerular Filt Rate > 60.0 mL/min (>60); Glucose 124 mg/dL (70-100); HEMOLYSIS < 15 (0-50); Potassium 3.7 mmol/L (3.4-5.1); Sodium 141 mmol/L (137-145)
[2020-10-03 19:35] LABS: Troponin I < 0.012 ng/mL (0.01-0.034)
[2020-10-03] MEDS: ONDANSETRON 4 MG/2 ML INJ IV (19:40)
[2020-10-03] MEDS: SODIUM CHLORIDE 0.9% 1,000 ML 150 ML IV (19:41)
[2020-10-03 19:51] LABS: UR Morphine/Opiate cutoff 300 Negative (Negative); Ur Creatinine Normal (Normal); Ur Specific Gravity Normal (Normal); Urine Amphetamines Negative (Negative); Urine Barbiturates Negative (Negative); Urine Benzodiazepines Negative (Negative); Urine Cocaine Negative (Negative); Urine MDMA Negative (Negative); Urine Methadone Negative (Negative); Urine Methamphetamines Negative (Negative); Urine Oxycodone Negative (Negative); Urine Phencyclidine Negative (Negative); Urine Tetrahydrocannabinol Negative (Negative); Urine Tricyclic Antidepressant Negative (Negative); Urine pH Normal (Normal)
[2020-10-03 20:25] LABS: Bacteria Urine None Seen
[2020-10-03 20:37] LABS: Appearance Urine UA CLEAR; Bilirubin Urine UA NEGATIVE (NEGATIVE); Color Urine UA YELLOW; Glucose Urine UA NEGATIVE (Negative); Ketones Urine UA NEGATIVE (NEGATIVE); Leukocyte Esterase Urine UA NEGATIVE (NEGATIVE); Nitrite Urine UA NEGATIVE (Negative); Occult Blood Urine UA NEGATIVE (Negative); Protein Urine UA NEGATIVE (Negative); Urobilinogen Urine UA 0.2 E.U./dL (0.2)
--- NOTE | 2020-10-03 20:43 | DI.CT.S_ITS ---
PROCEDURE: CT ANGIO HEAD AND NECK INDICATIONS: stroke, ? LVO TECHNIQUE: Pre-contrast 4.5 mm thick sections acquired from the foramen magnum to the vertex. After the administration of intravenous contrast, 1 mm thick sections acquired from the aortic arch through the [place] of [place]. Post-contrast 4.5 mm thick sections then re-acquired from the foramen magnum to the vertex. 3-dimensional [id number] (MIP) and/or volume rendering reformats were acquired of the central intracranial vasculature and neck separately. COMPARISON: [facility], CT, CT ANGIO HEAD AND NECK, 01/31/2020, 19:53. FINDINGS: Image quality: Excellent. BRAIN: CSF spaces: Ventricles are normal in size and shape. Basal cisterns are patent. No extra-axial fluid collections. Brain: No midline shift. No intracranial bleeds or masses. Wyatt-white matter interface appears intact. Old right occipital infarction. Skull and face: Calvarium and facial bones appear intact, without suspicious lesions. Orbits appear normal. Sinuses: Sinuses and mastoids are clear. HEAD CT ANGIOGRAPHY: Anterior circulation: Intracranial internal carotid arteries are normal in size and flow. The flow within the paired anterior cerebral arteries is normal and symmetric. The flow within the middle cerebral arteries is normal and symmetric. The anterior communicating artery is seen. No aneurysms are seen. Posterior circulation: The posterior circulation demonstrates a vertebral artery co-dominance. Basilar artery and posterior cerebral arteries demonstrate no areas of hemodynamically significant stenosis, vascular occlusion or aneurysmal dilation. Posterior communicating arteries are within normal limits. NECK CT ANGIOGRAPHY: The origins of the left and right common, internal and external carotid arteries demonstrate no areas of hemodynamically significant stenosis, vascular occlusion or aneurysmal dilation. Origins of the left and right vertebral arteries demonstrate no areas of hemodynamically significant stenosis, vascular occlusion or aneurysmal dilation. Bovine arch is present consistent with congenital anatomy. Limited, visualized portions of the subclavian vasculature are unremarkable. IMPRESSION: 1. No acute intracranial process. Old right occipital infarction. 2. No areas of hemodynamically significant stenosis, vascular occlusion or aneurysmal dilation within the anterior or posterior circulation. 3. No areas of hemodynamically significant stenosis, vascular occlusion or aneurysmal dilation within the neck vasculature. Any quantitative measurements of stenosis were performed using NASCET criteria. Dictated by: Vanessa Mathew M.D. on 10/03/2020 at 21:33 Approved by: Vanessa Mathew M.D. on 10/03/2020 at 21:37
[2020-10-03 20:45] LABS: Culture Indicated Urine Cult Not Indicated; RBC Urine 0-1/HPF (0-5/HPF); Squamous Epithelial Cell Urine 0-1 /HPF (0-5/HPF); WBC Urine 0-1/HPF (0-5/HPF)
[2020-10-03 21:33] LABS: COVID19 -Nasal RAPID Negative (Negative)
[2020-10-03 22:40] LABS: Magnesium 1.8 mg/dL (1.6-2.3)
--- NOTE | 2020-10-03 23:20 | P.HP_ITS ---
History of Present Illness History of Present Illness Date Patient Seen: 10/03/20 Time Patient Seen: 22:51 Chief complaint: EXTREME DIZZINESS AND NAUSEA Narrative: Ms. 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 The patient states she was standing at her sink this evening preparing dinner when she had noticed sudden onset dizziness. She states the dizziness feels very similar to her prior CVA. She steadied herself in attempted to get to her walker and reports nearly falling. Her son was home with her at the time and assisted her and brought her to the hospital. Patient was admitted 1 month ago under similar circumstances and diagnosed with a CVA. She has residual deficits left lower stella op see from her stroke in the January 2020 and ataxia described as losing balance and side stepping following her in August 2020. The patient uses a walker to ambulate which studies here. She reports new onsets of right arm weakness and tremor and left leg heaviness. She does not report numbness or tingling however this is confounded by neuropathy secondary to diabetes. The patient denies headache or new visual changes. The patient denies recent compla ints cold or flu symptoms, fevers or chills and has no nasal congestion or sore throat. She denies complaints of chest pain and has had no palpitations though she states she is unaware when she goes into atrial fibrillation/flutter. She has chronic cough secondary to COPD and is on home O2 at 2 liters/minute which is stable. She has had previous albuterol nebulizer and inhaler that she would use but cannot afford the medication. She describes her breathing as at baseline. She reports no abdominal pain has transient nausea with vertiginous episodes without vomiting. She denies changes in bowel or bladder habits. Patient ambulates using a walker. Upon arrival the patient has a temperature of 97.8?, heart rate of 89, blood pressure 142/72, respiratory rate of 22 saturating 94% on 2 liters/minute nasal cannula. The patient was taken immediately to CT scan as a code stroke which finds no acute changes and notes old right occipital infarct. CT is obtained which finds no acute processes, old occipital infarct, no hemodynamically significant stenoses, occlusions or aneurysmal dilation in the anterior, posterior circulations or neck vasculature. Twelve lead EKG is obtained finding in sinus rhythm at 89 beats per minute, right axis with right ventricular hypertrophy without ectopy ST or T-wave changes. On laboratory analysis he has white count 11.4, hemoglobin 14.8 and hematocrit of 44.0 with platelets of 252. She has a PT of 28.8, INR 2.5 and a PTT 46. Electrolytes are within normal range and she has a BUN 15 and creatinine 0.71 per nonfasting glucose 124. She has a total CK of 41 and her troponin is less than 0.012. Urinalysis obtained which is negative for infection and urine drug screen is negative. COVID-19 screening is negative. Neurology is consulted by the ER provider following the initial CT in the setting of 2 prior CVA the patient is not a candidate for tPA was recommended to obtain CTA to rule out large vessel occlusion which is not found. The patient is admitted to the medicine service for new CVA. Patient History Medical History Anticoagulation adequate with anticoagulant therapy (Acute) Atrial fibrillation (Acute) Chronic obstructive pulmonary disease (10/14/14) Diabetes (Acute) Diabetic neuropathy (Acute) Dyslipidemia (Acute) End stage chronic obstructive pulmonary disease (Acute) Fibromyalgia (Acute) Generalized anxiety disorder (Acute) Hypertension (Acute) Surgical History History of (Acute) History of local excision of skin lesion (Acute) Family & Social History Family History Father Alcoholic cirrhosis Mother Age: 77 Diabetes mellitus type II, controlled CVA (cerebral infarction) Social History: household members family,other Prior Living Arrangements House Safety & Behavioral: Feels Safe in Current Yes Environment Been Physically Hurt or No Threatened By a Person Suicidal Ideation Description None Suicide Plan Description No Plan Tobacco & Substance use: Tobacco type cigarettes Smoking Status Current every day smoker Smoking packs per day 1 alcohol intake former alcohol intake frequency holiday/special occasion Substance Use Type does not use Meds Home Medications and Allergies Home Medications Medication Instructions Recorded Confirmed Type Disabled Parking Permit #1 each 06/02/20 10/16/20 Rx lorazepam 0.5 mg tablet 0.5 mg PO BID PRN #30 tab 05/01/20 09/08/20 Rx atorvastatin 40 mg tablet 40 mg PO BEDTIME #90 tab 08/01/20 09/08/20 Rx glipizide 5 mg tablet, extended 5 mg PO DAILY #90 tab 08/01/20 09/08/20 Rx release 24 hr lisinopril 20 1 tab PO DAILY #90 tab 08/01/20 09/08/20 Rx mg-hydrochlorothiazide 12.5 mg tablet metformin 1,000 mg tablet 1,000 mg PO BID #180 tab 08/01/20 09/08/20 Rx pioglitazone 15 mg tablet 15 mg PO DAILY #90 tab 08/01/20 09/08/20 Rx prochlorperazine maleate 10 mg 10 mg PO BID PRN #60 tab 09/08/20 09/08/20 Rx tablet warfarin 10 mg tablet 10 mg PO DAILY #90 tab 09/22/20 09/22/20 Rx nifedipine 30 mg tablet,extended 30 mg PO DAILY #90 tab 09/25/20 Rx release warfarin 8 mg PO Q OTHER DAY 10/03/20 10/03/20 History Allergies Allergy/AdvReac Type Severity Reaction Status Date / Time azithromycin Allergy Severe ARM PAIN Verified 10/03/20 18:41 AND FACIAL REDNESS DURING INFUSION naproxen Allergy Severe Hives Verified 10/03/20 18:41 penicillin G Allergy Severe RASH Verified 10/03/20 18:41 codeine Allergy Mild RASH Verified 10/03/20 18:41 hydrocodone Allergy Mild RASH Verified 10/03/20 18:41 Review of Systems Review of Systems ROS: Yes All systems reviewed with the patient and are negative except as otherwise documented Exam Vital Signs (past 8 hours): - 10/03/20 18:33 10/03/20 18:55 10/03/20 18:57 Temperature 97.8 F Pulse Rate 89 91 H 88 Respiratory Rate 22 22 Blood Pressure 142/70 H 133/76 Pulse Oximetry 94 92 95 10/03/20 19:00 10/03/20 19:03 10/03/20 19:39 Temperature Pulse Rate 88 91 H 98 H Respiratory Rate 25 H 23 Blood Pressure 137/73 Pulse Oximetry 96 94 98 10/03/20 19:40 10/03/20 19:50 10/03/20 20:00 Temperature Pulse Rate 97 H 86 89 Respiratory Rate 20 16 21 Blood Pressure 136/71 103/63 102/67 Pulse Oximetry 97 96 96 10/03/20 20:10 10/03/20 20:20 10/03/20 20:30 Temperature Pulse Rate 88 90 87 Respiratory Rate 19 17 22 Blood Pressure 102/69 98/57 L 104/61 Pulse Oximetry 95 95 94 10/03/20 20:40 10/03/20 20:50 10/03/20 21:11 Temperature Pulse Rate 88 89 100 H Respiratory Rate 21 20 50 H Blood Pressure 107/65 107/68 Pulse Oximetry 93 93 96 10/03/20 21:13 10/03/20 21:20 10/03/20 21:30 Temperature Pulse Rate 107 H 91 H 88 Respiratory Rate 29 H 20 21 Blood Pressure 119/72 126/73 124/76 Pulse Oximetry 95 96 93 10/03/20 21:40 10/03/20 21:51 10/03/20 22:00 Temperature Pulse Rate 89 97 H 96 H Respiratory Rate 22 25 H 20 Blood Pressure 133/66 122/64 115/57 L Pulse Oximetry 94 93 93 10/03/20 22:39 Temperature 97.4 F L Pulse Rate 102 H Respiratory Rate 20 Blood Pressure 121/81 Pulse Oximetry 95 Oxygen Delivery Method Nasal Cannula Oxygen Flow Rate 2 Narrative Exam Narrative: GENERAL APPEARANCE: well developed, obese female, chronically ill-appearing, in no acute distress. HEENT: Mild left facial droop, no ptosis, PERRLA, conjunctiva clear, EOMs intact without nystagmus, no sinus tenderness to percussion, no rhinorrhea, no otorrhea or ear pain, mucous membranes are moist and pink without lesions or exudate. NECK/THYROID: neck supple, no JVD, no carotid bruit, no thyromegaly, trachea midline. LYMPH NODES: no cervical or supraclavicular lymphadenopathy. SKIN: [place], warm and dry, no visible lesions, rashes, ulcerations or petechiae. HEART: regular rate and rhythm, S1-S2, no murmur, no rubs or gallops, brisk capillary refill, no edema LUNGS: Breath sounds globally diminished with bibasilar wheezing, no coarseness walk, crackles, no cough present CHEST: Increased AP diameter, symmetrical movement, no accessory muscle use, good tidal volume. ABDOMEN: Soft, no distention, no abdominal tenderness, no organomegaly, no flank or suprapubic tenderness, active bowel tones. BACK: Normal curvature, nontender to palpation, no CVA tenderness on percussion EXTREMITIES: Weakness and tremor right upper extremity, drift but not to bed, drift right lower extremity but not to bedm no deformities or joint effusions. NEUROLOGIC: AAO x4, NIH scores 3 with facial droop, drift right arm and right leg, bilateral lower extremity neuropathy with blunted sensation without new change, hearing grossly normal to speech. PSYCH: Good judgment, good insight, linear thought process, cooperative, appropriate with stable behavior Objective Labs Result Diagrams: 10/03/20 19:00 10/03/20 19:00 Labs: Laboratory Results - last 24 hr 10/03/20 10/03/20 10/03/20 19:00 19:00 19:00 WBC 11.4 H RBC 4.81 Hgb 14.8 Hct 44.0 MCV 91.4 MCH 30.7 MCHC 33.6 RDW 14.0 Plt Count 252 Neut % (Auto) 59.4 Lymph % (Auto) 32.5 [place] % (Auto) 6.5 Eos % (Auto) 0.9 L Baso % (Auto) 0.7 Neut # (Auto) 6800 Lymph # (Auto) 3700 [place] # (Auto) 700 Eos # (Auto) 100 Baso # (Auto) 100 PT 28.8 H INR 2.5 H APTT 46 H D Sodium 141 Potassium 3.7 Chloride 103 Carbon Dioxide 33 H BUN 15 Creatinine 0.71 Estimated GFR > 60.0 BUN/Creatinine Ratio 21.1 Glucose 124 H Calcium 9.3 Magnesium Total Creatine Kinase 41 CK-MB (CK-2) TNP CK-MB (CK-2) Rel Index TNP Troponin I < 0.012 Urine Color Urine Appearance Urine pH Ur Specific [place] Urine Protein Urine Glucose (UA) Urine Ketones Urine Occult Blood Urine Nitrate Urine Bilirubin Urine Urobilinogen Ur Leukocyte Esterase Urine RBC Urine WBC Ur Squamous Epith Cells Urine Bacteria Ur Culture Indicated? U Opiates 300ng/mL cut Ur Oxycodone Screen Urine Methadone Screen Ur Barbiturates Screen U Tricyclic Antidepress Ur Phencyclidine Scrn Ur Amphetamines Screen U Methamphetamines Scrn Ur MDMA Scrn (Ecstasy) U Benzodiazepines Scrn Urine Cocaine Screen U Marijuana (THC) Screen COVID-19 PCR 10/03/20 10/03/20 10/03/20 19:00 19:43 19:43 WBC RBC Hgb Hct MCV MCH MCHC RDW Plt Count Neut % (Auto) Lymph % (Auto) [place] % (Auto) Eos % (Auto) Baso % (Auto) Neut # (Auto) Lymph # (Auto) [place] # (Auto) Eos # (Auto) Baso # (Auto) PT INR APTT Sodium Potassium Chloride Carbon Dioxide BUN Creatinine Estimated GFR BUN/Creatinine Ratio Glucose Calcium Magnesium 1.8 Total Creatine Kinase CK-MB (CK-2) CK-MB (CK-2) Rel Index Troponin I Urine Color Yellow Urine Appearance Clear Urine pH 5.0 Ur Specific [place] 1.010 Urine Protein Negative Urine Glucose (UA) Negative Urine Ketones Negative Urine Occult Blood Negative Urine Nitrate Negative Urine Bilirubin Negative Urine Urobilinogen 0.2 Ur Leukocyte Esterase Negative Urine RBC 0-1/hpf Urine WBC 0-1/hpf Ur Squamous Epith Cells 0-1 /hpf Urine Bacteria None seen Ur Culture Indicated? Cult not indicated U Opiates 300ng/mL cut Negative Ur Oxycodone Screen Negative Urine Methadone Screen Negative Ur Barbiturates Screen Negative U Tricyclic Antidepress Negative Ur Phencyclidine Scrn Negative Ur Amphetamines Screen Negative U Methamphetamines Scrn Negative Ur MDMA Scrn (Ecstasy) Negative U Benzodiazepines Scrn Negative Urine Cocaine Screen Negative U Marijuana (THC) Screen Negative COVID-19 PCR 10/03/20 21:12 WBC RBC Hgb Hct MCV MCH MCHC RDW Plt Count Neut % (Auto) Lymph % (Auto) [place] % (Auto) Eos % (Auto) Baso % (Auto) Neut # (Auto) Lymph # (Auto) [place] # (Auto) Eos # (Auto) Baso # (Auto) PT INR APTT Sodium Potassium Chloride Carbon Dioxide BUN Creatinine Estimated GFR BUN/Creatinine Ratio Glucose Calcium Magnesium Total Creatine Kinase CK-MB (CK-2) CK-MB (CK-2) Rel Index Troponin I Urine Color Urine Appearance Urine pH Ur Specific [place] Urine Protein Urine Glucose (UA) Urine Ketones Urine Occult Blood Urine Nitrate Urine Bilirubin Urine Urobilinogen Ur Leukocyte Esterase Urine RBC Urine WBC Ur Squamous Epith Cells Urine Bacteria Ur Culture Indicated? U Opiates 300ng/mL cut Ur Oxycodone Screen Urine Methadone Screen Ur Barbiturates Screen U Tricyclic Antidepress Ur Phencyclidine Scrn Ur Amphetamines Screen U Methamphetamines Scrn Ur MDMA Scrn (Ecstasy) U Benzodiazepines Scrn Urine Cocaine Screen U Marijuana (THC) Screen COVID-19 PCR Negative Assessment & Plan Assessment & Plan narrative: This is a 54-year-old female patient who presents to the ER for sudden onset of vertigo and nausea and is found to have new right- sided deficits overlying left lower hemiopsia following stroke in January and disequilibrium following stroke 1 month ago. The patient's cares complicated due to limited medication management due to cost and availability through Medicare. 1. Acute CVA, left hemisphere, present on admission, active. -last known normal is 5:00 p.m. this evening when the patient experienced sudden onset of vertigo disequilibrium gait disturbance and weakness. -CT noncontrast showed no bleed and notes prior right occipital CVA, CT a similarly finds no acute processes, hold right occipital infarct, with no hem odynamically significant stenosis, occlusions or aneurysm make dilation of cerebral or neck vasculature. -the patient had been started on warfarin on prior admission with concern for atrial fibrillation which the patient endorses she is not aware when it occurs. Warfarin level is therapeutic with an INR of 2.5. -ordered MR stroke protocol, and limited echocardiogram -serial neuro assessments. -requested PT and OT to evaluate and treat. -hemoglobin A1c obtained on prior admission was 6.0, TSH was 0.65. Lipid panel obtained shows well-controlled cholesterol with a total cholesterol of 133, tri glycerides of 86, HDL of 49 and LDL of 67. -patient is on warfarin with a therapeutic INR however had recurrent stroke, added aspirin 81 mg daily. -ordered Zofran 4 mg IV every 4 hours as needed. -ordered meclizine 25 mg every 6 hours as needed for vertigo, 1st dose now. -ordered Ativan 0.5 mg p.o. every 6 hours as needed for vertigo unresponsive to meclizine. 2. Current use of long-term anticoagulation, present on admission, active. -patient started on warfarin related to history of atrial fibrillation/flutter with patient unaware of arrhythmias and previous strokes. -patient is currently taking warfarin 8 mg every other day alternating with warfarin 10 mg every other day. -INR has been variable and warfarin dose titrated by her primary care provider Dr. Mi. INR on admission today is 2.5 at target. -will continue current home regimen of warfarin dosing. 3. Atrial fibrillation/flutter, paroxysmal, in sinus rhythm, chronic, stable. -patient denies complaints of chest pain and feels no palpitations and is unaware when the arrhythmia is present. -12 lead EKG demonstrates a sinus rhythm at 89 without ectopy, no ST or T-wave changes with a right axis and right ventricular hypertrophy. -will continue anticoagulation on warfarin. 4. Diabetic type 2 with hyperglycemia, with diabetic neuropathy, present on admission, active. -Fingerstick blood sugars AC and HS, coverage with low-dose sliding scale insulin. -hemoglobin A1c obtained on 09/01/2020 was 6.0 showing excellent glycemic management. -will continue home regimen of metformin 1000 mg twice daily, glipizide 5 mg extended release daily and vehicle it is own 15 mg daily. 5. Chronic obstructive lung disease, oxygen dependent, present on admission, active. -respiration is at baseline without exacerbation, chronic cough. 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 Reinforce smoking cessation discussed on prior admission, the patient is not interested in quitting. -patient uses home oxygen at 2 liters/minute, will titrate to oxygen saturation 88-92%. -requested respiratory therapy to consult evaluate treat. -ordered DuoNeb twice daily and albuterol inhaler 2 puffs every 4 hours as needed. -ordered nicotine patch 21 mg topical 6. Essential hypertension, present on admission, chronic -patient mildly hypertensive upon arrival to the ER 142/72 and later on the inpatient unit is 121/81 reflecting adequate pressure control. -will continue home regimen of lisinopril/hydrochlorothiazide and nifedipine. 7. Dyslipidemia, chronic, stable -patient demonstrates good cholesterol control on atorvastatin 40 mg bipolar cholesterol panel 1 month ago. The patient endorses dietary compliance. -will continue atorvastatin 40 mg daily at bedtime. VTE prophylaxis: SCDs therapeutic anticoagulation on warfarin IV fluid: Saline lock Diet: Heart healthy, low-sodium. Code status: Full code, the patient designates her daughter Katelyn Cornejo to be her surrogate decision maker. The patient is admitted to the hospital due to the severity of his symptoms and need for further evaluation and monitoring to avoid complications or adverse events related to her acute CVA, the patient is admitted as observation expected length of stay to be less than 2 midnights. COVID-19 COVID-19 status: Negative Result date/Date tested (Pos, Neg/Pending): 10/04/20 Scores [facility] [place] coma scale eye opening: Spontaneous [place] coma scale verbal response: Orientated [place] coma scale motor response: Obey commands Sylvia coma scale total score: 15 NIHSS Level of Conciousness: Alert, keenly responsive Ask month/age: Answers both questions correctly. Open/close eyes, close hand: Performs both tasks correctly Best gaze horizontal: Normal Visual ashraf: No visual loss (Stable prior left lower hemiopsia) Facial palsy: Minor paralysis, flattened nasolabial fold, asymmetry on smiling Left arm drift: No drift for full 10 sec Right arm drift: Drifts down, not to bed Left leg drift: No drift for full 5 sec Right leg drift: Drifts down, not to bed Limb ataxia: Absent Sensory on face/arms/legs: Normal, no sensory loss (Pre-existing diabetic neuro elio, no new change.) Best language: No aphasia, normal Dysarthria: Normal Extinction or inattention: No abnormality Total NIH Stroke scale score: 3 CHADS-VASc Congestive heart failure: no Hypertension: no Age 75 years or older: no Diabetes mellitus: yes Stroke, TIA, or TE: yes Vascular disease: yes Age 65 to 74 years: no Sex category (female): Female CHADS-VASc Score: 5
[2020-10-03] MEDS: MECLIZINE HCL 12.5 MG TABLET 25 MG PO (23:47)
[2020-10-04 04:35] VITALS: BP 134/65; PULSE 85; RESP 18; TEMP 36.3; O2SAT 94
[2020-10-04 07:50] VITALS: O2SAT 94
[2020-10-04 08:00] VITALS: BP 93/55; PULSE 76; RESP 16; TEMP 36.4; O2SAT 98
--- NOTE | 2020-10-04 09:02 | CM.DANOTE ---
DCP: Case received, EMR reviewed and met with patient. Introduced self and role. Patient gave basic yes and no answers, limited engagement in conversation, but was able to obtain some information from patient regarding her living situation, and some of her baseline activity information. DCP assessment completed with information currently available. Patient is a 54 year old female who admitted yesterday evening to the care of the hospitalist team. PCP; Dr. Mi at [facility] Payer: confirmed: [employer] Medicare. Patient came to the hospital via private vehicle secondary to having dizziness and nausea. Patient has had history of CVAS, also has a-fib, HTN, Diabetes, and COPD. Patient is on 2 liters of oxygen at home, and is a daily smoker. She is on Coumadin secondary to CVA history. She is being seen for CVA work up. Information in chart indicates that patient uses a FWW at home. Met briefly with patient, as stated above, limited engagement in conversation. Confirmed that patient does not drive, son takes her to appointments. Asked her if she ever had any home health before, stated, I have through the state. P: DCP to continue to follow for needs. She will be working with O.T/P.T. Home Health may be optional for patient. Sandra Sánchez RN/[employer] Manager
--- NOTE | 2020-10-04 10:25 | SLP.IPNOTE ---
Order received for evaluation secondary to history of CVA with suspected acute CVA. Pt was in bed. Introduced self and and role. Asked if I could ask a few questions she stated no. Asked her if I could return later to talk with her, she refused again. Informed nursing and Dr. Celeste of pt's refusals.
--- NOTE | 2020-10-04 11:35 | PT-IP ANOTE ---
Attempted to see pt at 1105. Pt in bed and able to answer questions for social hx and PMH. This PT explained role of PT and POC and pt became irritated. She stated Nobody cares about me anymore so i wont care about myself as well. I dont see the point of doing assessment because i will not be able to affort $50 co-pay for outpatient therapy. This PT attempted to encourage her multiple times and importance of therapy but she cont refuse. Notified ZENAIDA Robin regarding pt's financial situation. Pt might benefit from home health. Will reattempt PT this PM/ tomorrow morning.
[2020-10-04 11:55] VITALS: BP 105/67; PULSE 82; RESP 18; TEMP 36.6; O2SAT 95
[2020-10-04 11:57] VITALS: BP 105/67; PULSE 82; RESP 18; TEMP 36.6; O2SAT 95
--- NOTE | 2020-10-04 14:36 | PT-IP ANOTE ---
attempted to see pt and ZACK Owen stated pt is going to be d/c from hospital d/t pt request. Pt told care team she does not want to be here and requested d/c. D/C PT order.
--- NOTE | 2020-10-04 15:01 | PC.NURSE ---
Discharge: Pt distressed by an interchange she had with the PA Hospitalist this am about her smoking. Since then she has declined all meds, treatments and procedures, ie PT/OT eval, MRI, ECHO. Dr. Celeste came and saw her. She doesn't want to stay. She made Dr. Celeste aware as to why. Given time to verb her feelings. MD gave her d/c instructions and agreed to let her go home. Discharge paperwork given and reviewed packet. Questions answered. She was instructed to call when her son arrived to be escorted out per protocol. She did so and d/c via auto with son.
--- NOTE | 2020-10-05 15:11 | PM.DS.1 ---
History of Present Illness History of Present Illness Date Patient Seen: 10/04/20 Time Patient Seen: 09:15 Chief complaint: EXTREME DIZZINESS AND NAUSEA Narrative: As per DEBBY Summers: Ms. 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 The patient states she was standing at her sink this evening preparing dinner when she had noticed sudden onset dizziness. She states the dizziness feels very similar to her prior CVA. She steadied herself in attempted to get to her walker and reports nearly falling. Her son was home with her at the time and assisted her and brought her to the hospital. Patient was admitted 1 month ago under similar circumstances and diagnosed with a CVA. She has residual deficits left lower stella op see from her stroke in the January 2020 and ataxia described as losing balance and side stepping following her in August 2020. The patient uses a walker to ambulate which studies here. She reports new onsets of right arm weakness and tremor and left leg heaviness. She does not report numbness or tingling however this is confounded by neuropathy secondary to diabetes. The patient denies headache or new visual changes. The patient denies recent complaints cold or flu symptoms, fevers or chills and has no nasal congestion or sore throat. She denies complaints of chest pain and has had no palpitations though she states she is unaware when she goes into atrial fibrillation/flutter. She has chronic cough secondary to COPD and is on home O2 at 2 liters/minute which is stable. She has had previous albuterol nebulizer and inhaler that she would use but cannot afford the medication. She describes her breathing as at baseline. She reports no abdominal pain has transient nausea with vertiginous episodes without vomiting. She denies changes in bowel or bladder habits. Patient ambulates using a walker. Upon arrival the patient has a temperature of 97.8?, heart rate of 89, blood pressure 142/72, respiratory rate of 22 saturating 94% on 2 liters/minute nasal cannula. The patient was taken immediately to CT scan as a code stroke which finds no acute changes and notes old right occipital infarct. CT is obtained which finds no acute processes, old occipital infarct, no hemodynamically significant stenoses, occlusions or aneurysmal dilation in the anterior, posterior circulations or neck vasculature. Twelve lead EKG is obtained finding in sinus rhythm at 89 beats per minute, right axis with right ventricular hypertrophy without ectopy ST or T-wave changes. On laboratory analysis he has white count 11.4, hemoglobin 14.8 and hematocrit of 44.0 with platelets of 252. She has a PT of 28.8, INR 2.5 and a PTT 46. Electrolytes are within normal range and she has a BUN 15 and creatinine 0.71 per nonfasting glucose 124. She has a total CK of 41 and her troponin is less than 0.012. Urinalysis obtained which is negative for infection and urine drug screen is negative. COVID-19 screening is negative. Neurology is consulted by the ER provider following the initial CT in the setting of 2 prior CVA the patient is not a candidate for tPA was recommended to obtain CTA to rule out large vessel occlusion which is not found. The patient is admitted to the medicine service for new CVA. Discharge Providers Provider Date of admission: 10/03/20 21:59 Discharge Date: 10/04/20 Primary care physician: Desmond Mi DO Consults: 10/03/20 21:59 Consult to Discharge Planning Routine Comment: Consult to Occupational Therapy Evaluate & Treat Comment: Physician Instructions: Evaluate and treat Consult to Physical Therapy Evaluate & Treat Comment: Physician Instructions: Evaluate and Treat Consult to Speech Therapy Evaluate & Treat Comment: Physician Instructions: Evaluate and treat 10/03/20 22:05 Consult to Dietitian, Adult Routine Comment: Reason For Exam: Obese, recurrent CVA 10/03/20 23:39 Consult to Respiratory Therapy Evaluate & Treat Comment: COPD, home O2, new CVA Physician Instructions: Evaluate and treat Discharge provider: Paramjit Celeste DO Summary Hospital Course Discharge Diagnosis: 1. TIA, present on admission, resolved 2. Current use of long-term anticoagulation, present on admission, active. 3. Atrial fibrillation/flutter, paroxysmal, in sinus rhythm, chronic, stable. 4. Diabetic type 2 with hyperglycemia, with diabetic neuropathy, present on admission, active. 5. Chronic obstructive lung disease, oxygen dependent, present on admission, active. 6. Essential hypertension, present on admission, chronic 7. Dyslipidemia, chronic, stable Hospital Course: This is a 54-year-old female patient who presented to the ER for sudden onset of vertigo and nausea and is found to have new right-sided deficits overlying left lower hemiopsia following stroke in January and disequilibrium following stroke 1 month ago. The patient's care is complicated due to limited medication management given cost and availability through Medicare. Her new right-sided deficits and nausea resolved the following morning. Patient did not feel that it was necessary to undergo MRI testing or limited TTE given this would not seemingly change her management. She also did not want to work with Physical or Occupational therapies, or speech therapy given that she felt fine. Given transient nature of her symptoms, further consider focal seizures near her prior CVAs in the differential of this patient if this were to happen again. She will follow up with her PCP for continued care. Exam Vital Signs (past 8 hours): Oxygen Delivery Method Room Air Oxygen Flow Rate 2 Narrative Exam Narrative: GENERAL APPEARANCE: well developed, obese female, chronically ill-appearing, in no acute distress. HEENT: PERRLA, conjunctiva clear, EOMs intact without nystagmus, no sinus tenderness to percussion, no rhinorrhea, no otorrhea or ear pain, mucous membranes are moist and pink without lesions or exudate. NECK/THYROID: neck supple, no JVD, no carotid bruit, no thyromegaly, trachea midline. LYMPH NODES: no cervical or supraclavicular lymphadenopathy. SKIN: [place], warm and dry, no visible lesions, rashes, ulcerations or petechiae. HEART: regular rate and rhythm, S1-S2, no murmur, no rubs or gallops, brisk capillary refill, no edema LUNGS: Breath sounds globally diminished with bibasilar wheezing, no coarseness walk, crackles, no cough present CHEST: Increased AP diameter, symmetrical movement, no accessory muscle use, good tidal volume. ABDOMEN: Soft, no distention, no abdominal tenderness, no organomegaly, no flank or suprapubic tenderness, active bowel tones. BACK: Normal curvature, nontender to palpation, no CVA tenderness on percussion EXTREMITIES: Weakness and tremor right upper extremity, drift but not to bed, drift right lower extremity but not to bedm no deformities or joint effusions. NEUROLOGIC: AAO x4, NIH now 0. bilateral lower extremity neuropathy with blunted sensation without new change, hearing grossly normal to speech. PSYCH: Good judgment, good insight, linear thought process, cooperative, appropriate with stable behavior Objective Labs Result Diagrams: 10/03/20 19:00 10/03/20 19:00 Discharge Plan Discharge Plan Patient Disposition: Home Provider Discharge Comment: You were admitted to the hospital with a possible TIA. No medication changes are recommended. Discharge orders & Medications Prescriptions: Continued (DME) Disabled Parking Permit Qty: 1 RF: 0 atorvastatin 40 mg tablet 40 mg PO BEDTIME Qty: 90 RF: 2 glipizide 5 mg tablet extended release 24hr 5 mg PO DAILY Qty: 90 RF: 2 lisinopril-hydrochlorothiazide 20-12.5 mg tablet 1 tab PO DAILY Qty: 90 RF: 2 metformin 1,000 mg tablet 1,000 mg PO BID Qty: 180 RF: 2 pioglitazone [Actos] 15 mg tablet 15 mg PO DAILY Qty: 90 RF: 2 nifedipine 30 mg tablet extended release 30 mg PO DAILY Qty: 90 RF: 2 lorazepam 0.5 mg tablet 0.5 mg PO BID PRN (Reason: anxiety) Qty: 30 RF: 1 warfarin 10 mg tablet 10 mg PO DAILY Qty: 90 RF: 1 prochlorperazine maleate [Compazine] 10 mg tablet 10 mg PO BID PRN (Reason: nausea and vomiting) Qty: 60 RF: 2 warfarin 4 mg Tablet 8 mg PO Q OTHER DAY RF: 0 Follow up/Referrals: Desmond Mi, [Primary Care Provider] - (please keep your follow up appointment scheduled prior to your admission to the hospital) Diet/Activity/Treatments Diet: Diet as Tolerated Activity: As tolerated. Visit Report/Discharge Packet Instructions: DI for Stroke-Ischemic, DI for Visual Field Disturbances, DI for Dizziness-Nonvertigo Visit Report Forms: Patient Portal/API, Stroke Signs & Symptoms Discharge Data Primary Care Provider: Desmond Mi Attending Provider: Paramjit Ferrer Admit Date/Time: 10/03/20 21:59 Discharges patient from system. Discharge Date/Time: 10/04/20 14:30
--- NOTE | 2020-10-11 21:21 | PC.NURSE ---
Late Entry; NS infusion initiated 10/03 at 19:41, stopped at 22:17 per MD order.
== END 2020-10-04 14:30 | disposition home or self-care (01) ==
LOC: ED 21:59 → AC 22:19
PROVIDERS: Admitting Provider Nurse Practitioner Adult Health; Emergency Provider Emergency Medicine; PCP Family Medicine; Referring Provider Emergency Medicine; Visit Provider Nurse Practitioner Adult Health
DX: I63.9 Cerebral infarction, unspecified (principal); R29.818 Other symptoms and signs involving the nervous system; I48.0 Paroxysmal atrial fibrillation; Z79.01 Long term (current) use of anticoagulants; J44.9 Chronic obstructive pulmonary disease, unspecified; Z99.81 Dependence on supplemental oxygen; I10 Essential (primary) hypertension; F17.210 Nicotine dependence, cigarettes, uncomplicated; E78.5 Hyperlipidemia, unspecified; Z79.84 Long term (current) use of oral hypoglycemic drugs; E11.41 Type 2 diabetes mellitus with diabetic mononeuropathy; E11.65 Type 2 diabetes mellitus with hyperglycemia; Z11.59 Encounter for screening for other viral diseases
CPT/HCPCS: 36415; 70450; 70496; 70498; 80048; 80305; 81001; 82550; 82962; 83735; 84484; 85025; 85610; 85730; 87635; 93005; 96361; 96374; 99285; G0378; A9270; J2405; Q9967

== ENCOUNTER → 2021-02-08 17:13 | Outpatient (CLI) | payer MEDICARE, SELFPAY ==
[2020-10-03 22:34] VITALS: BMI 31.8
[2021-02-08 18:18] LABS: Alanine Aminotransferase 19 IU/L (<35); Albumin 4.3 g/dL (3.5-5.0); Albumin Globulin Ratio 1.5 (1.0-2.8); Alkaline Phosphatase 64 U/L (38-126); Aspartate Aminotransferase 22 IU/L (14-36); BUN Creatinine Ratio 28.8 (6-22); Bilirubin Total 0.2 mg/dL (0.2-1.3); Blood Urea Nitrogen 17 mg/dL (7-17); Calcium 9.7 mg/dL (8.4-10.2); Carbon Dioxide 27 mmol/L (22-32); Chloride 103 mmol/L (98-107); Estimated Glomerular Filt Rate > 60.0 mL/min (>60); Globulin 2.8 g/dL (1.7-4.1); Glucose 89 mg/dL (70-100); HEMOLYSIS < 15 (0-50); Hemoglobin A1C% w Est Avg Glu 5.8 % (4.0-6.0); Potassium 3.9 mmol/L (3.4-5.1); Sodium 140 mmol/L (137-145); Total Protein 7.1 g/dL (6.3-8.2)
[2021-02-08 18:25] LABS: NT-proBNP (BNP-Adult 18+) 51 pg/mL (<125)
== END ==
PROVIDERS: PCP Family Medicine; Referring Provider Student in an Organized Health Care Education/Training Program; Visit Provider Student in an Organized Health Care Education/Training Program
DX: R06.02 Shortness of breath (principal); E11.69 Type 2 diabetes mellitus with other specified complication; R60.9 Edema, unspecified; E78.5 Hyperlipidemia, unspecified; I10 Essential (primary) hypertension; I48.0 Paroxysmal atrial fibrillation; Z79.01 Long term (current) use of anticoagulants; Z79.4 Long term (current) use of insulin
CPT/HCPCS: 36415; 80053; 83036; 83880

== ENCOUNTER → 2021-04-13 12:34 | Outpatient (CLI) | payer MEDICARE, SELFPAY ==
[2020-10-03 22:34] VITALS: BMI 31.8
--- OUTSIDE RECORDS SUMMARY | 2021-03-29 09:16 | XMS_ITS | Referral Summary ---
:1965 Author Organization [address] [address] Care Team Providers Name Role Phone Marci Mi DO Primary Care Provider Reason for Referral MRI/CAT/PET Scan (Routine) Status Reason Specialty Diagnoses / Referred By Referred To Procedures Contact Contact Pending Review Specialty Diagnoses Pulmonary emphysema, unspecified emphysema type ([facility]/HCC) Beth Collins, Services Procedures CT CHEST WITHOUT CONTRAST MD Required [address] [place] [address] Electronically signed by Beth Collins MD atConsultation (Routine) Status Reason Specialty Diagnoses / Referred By Referred To Procedures Contact Contact Authorized Diagnoses Pulmonary emphysema, unspecified emphysema type (CMS/HCC) Beth Collins MD [facility] Procedures Complete PFT with DLCO [address] [place] [phone] Phone: Electronically signed by Beth Collins MD at Reason for Visit Reason Comments COPD Consultation (Routine) Status Reason Specialty Diagnoses / Procedures Referred By C ontact Referred To Contact Closed Pulmonology Diagnoses COPD (chronic obstructive pulmonary disease) (CMS/HCC) Desmond Mi, Src Mv Pulmonology Procedures [place] OFFICE OUTPATIENT VISIT [address] [place] [address] [address] [place], [place] [address] [place], [place] Phone: [phone] Fax: Encounter Details Date Type Department Care Team Description 02/15/2021 Office Visit Beth Chua M D Pulmonary emphysema, unspecified emphyse ma type ([facility]) (Primary Dx); Clinics Pulmonology [address]; [facility] Chronic respiratory failure with hypoxia ([facility]) [address] [place], [place] [phone] Allergies Active Allergy Reactions Severity Noted Date Comments Acetaminophen 02/15/2021 Codeine 06/15/2013 Other reaction( s): Other (See Comments) GEMMS Conversio n Hydrocodone 06/15/2013 Other reaction( s): Other (See Comments) GEMMS Conversio n Naproxen 02/15/2021 Penicillins 02/15/2021 Rosiglitazone 06/15/2013 Other reaction (s): Other (See Comments) GEMMS Conversio n documented as of this encounter (statuses as of 03/27/2021) Medications Medication Sig Dispensed Refills Start Date End Date Status atorvastatin daily 0 02/03/2021 Active (LIPITOR) 40 mg tablet furosemide every other 0 02/09/2021 Active (LASIX) 40 mg day tablet glipiZIDE daily 0 02/03/2021 Active (GLUCOTROL XL) 5 mg 24 hr tablet lisinopriL-hydroc daily 0 02/03/2021 A ctive hlorothiazide (PRINZIDE) 20-12.5 mg per tablet metFORMIN 2 (two) times 0 02/03/2021 Activ e (GLUCOPHAGE) a day 1,000 mg tablet NIFEdipine XL daily 0 01/02/2021 Activ e (PROCARDIA XL) 30 mg 24 hr tablet pioglitazone daily 0 02/03/2021 Active (ACTOS) 15 mg tablet potassium every other 0 02/09/2021 Active chloride day (MICRO-K) 10 mEq CR capsule warfarin Take 5 mg by 0 Active (COUMADIN) 5 mg mouth once tablet Take as directed per After Visit Summary. warfarin Take 4 mg by 0 Active (COUMADIN) 4 mg mouth daily tablet Take as directed per After Visit Summary. tiotropium Place 1 30 capsule 11 02/15/2021 Discont inued (SPIRIVA) 18 mcg capsule into 1 (Cost of inhaler and medicati on) inhale once daily documented as of this encounter (statuses as of 03/27/2021) Active Problems No known active problemsdocumented as of this encounter (statuses as of 03/27/2021) Social History Tobacco Use Types Packs/Day Years Used Date Current Every Day Smoker 1 37 Smokeless Tobacco: Never Used Tobacco Cessation: Ready to Quit: No Comments: .25 ppd now Alcohol Use Drinks/Week oz/Week Comments Never Alcohol Habits Answer Date Recorded How often do you have a drink containing alcohol? Never 02/15/2021 How many drinks containing alcohol do you have on a typical Not asked day when you are drinking? How often do you have six or more drinks on one occasion? No t asked Sex Assigned at Date Recorded Not on file Job Start Date Occupation Industry Not on file Not on file Not on file documented as of this encounter Last Filed Vital Signs Vital Sign Reading Time Taken Comments Blood Pressure 100/68 02/15/2021 9:29 AM PDT Pulse 100 02/15/2021 9:29 AM PDT Temperature 36.7 ??C (98 ??F) 02/15/2021 9:29 AM PDT Respiratory Rate - - Oxygen Saturation 96% 02/15/2021 9:29 AM PDT on 2L Inhaled Oxygen Concentration - - Weight 86.3 kg (190 lb 3.2 oz) 02/15/2021 9:29 AM PDT Height 160 cm (5' 3) 02/15/2021 9:29 AM PDT Body Mass Index 33.69 02/15/2021 9:29 AM PDT documented in this encounter Patient Instructions Patient InstructionsBeth Collins MD - 02/15/2021 9:20 AM PDTYou were seen in pulmonary clinic today for evaluation of COPD and use of oxygen. Please contact [facility] radiology to schedule a CT of the chest. You will be contacted by [facility] pulmonary function to have the breathing test. New medication to start: Nebulized ipratropium/albuterol once in the morning and once in the afternoon. I will submit a request for the nebulizer and the medicine to your oxygen supplier. Follow-up in 3 months to check progress. documented in this encounter Progress Notes Beth Collins MD - 02/15/2021 9:20 AM PDT eth Collins MD - 02/15/2021 9:20 AM PDT [facility] PULMONARY CONSULT NOTE PRIMARY CARE PHYSICIAN: Desmond Mi DO Patient Name: Jazmin Barragan : 1965 DIAGNOSES: I Beth Collins MD reviewed the patient's chart, performed an exam, reviewed all results and discussed case with primary team and RN of the day. I agree with the resident Dr. Silverman's??medical decision making and notation??of 02/15/2021. Ms. Mena has probable severe COPD by spirometric criteria, no recent exacerbation, but her multifactorial exertional limitation is impacted significantly by her chronic pulmonary disease. I discussed expected therapeutic options of once daily inhaled long-acting muscarinic, inhaled corticosteroid and long-acting beta, unfortunately she is quite limited with respect to inhaled medication options due to [id number] cost, limited personal resources, etc. Under these circumstances, will have her try nebulized ipratropium albuterol 2 times daily which should be covered fairly well. These short acting medications can improve airflow and symptoms on short-term basis, have never been proven to reduce exacerbation or maintain lung function. Her chronic tobacco smoking is a very difficult situationas she admits severe depression, lack of motivation to improve her health, though presence of her manohar ghter today is somewhat promising. Plan: ???CT chest low-dose screen for nodule ???PFT ???Nebulized ipratropium albuterol 2 times daily ???Importance of reducing and quitting smoking emphasized ???She is utilizing and require supplemental oxygen to maintain normal oxygenation and to prevent worsening hypoxemic respiratory failure: She will continue supplemental O2 2 L/min at all times Follow-up in 4 months Assessment/Plan: Jazmin Barragan is a 55 y.o. female who is current smoker with a history of COPD on home oxygen, HTN, HLD, marked obesity, Atrial fibrillation on anticoagulation with warfarin and Type 2 diabtes who presents for evaluation of COPD. 1.) COPD with chronic respiratory failure and Hypoxia: - Patient currently symptomatic, no recent excerebration or use of steroids - NO PFT or CT chest on file - Pt not suing any inhalers due to cost issue, Nebulizer is more cost effective - Will order PFT and CT chest - Duo-neb Nebulizer twice daily - Continue using home oxygen 2.) Nicotine dependence : - Highly encourage smoking cessation - Patient had tried Bupropion in past and had side effects, reluctant in trying this again Chief Complaint: Chronic Dyspnea History of Present Illness: COPD: Patient states that she develop asthma many years ago in her 30's during and later was told that she had COPD. Since then her symptoms are gradually gettinmg worse. Over past few years she has tried nebulizer with some relief , none of the inhalers she was prescribed shoe could afford.Patient complains of dyspnea, cough, wheezing and fatigue. Symptoms began several years ago. Symptoms of chronic dyspnea and inability to climb stairs does worsen with exertion/ minimal activity. Sputum is white in small amounts. Patient denies any fever or chills. Patient uses 3 pillows at night, sleep on stomach, she complains of pedal edema getting worse recently and was started on Lasix 40 mg every other day with good response. Echo done in August 2020 and was normal. Patient currently is on oxygen at 2 L/min per nasal cannula.Respiratory history: no history of pneumonia or bronchitis, last time she can recall was 7 years ago. Smoking history: started at age 18, currently using 4-5 cigarettes raised with parents who smoke. Patient has smoked almost 35 years Family History: Both parents were smokers and had some lung problems she is not aware of. Past Medical History: Diagnosis Date ??? Arthritis ??? COPD (chronic obstructive pulmonary disease) (CMS/HCC) ??? Diabetes mellitus (CMS/HCC) ??? Hyperlipidemia ??? Hypertension ??? Stroke (CMS/HCC) x5 Past Surgical History: Procedure Laterality Date ??? SECTION x2 Allergies Allergen Reactions ??? Acetaminophen ??? Codeine Other reaction(s): Other (See Comments) GEMMS Conversion ??? Hydrocodone Other reaction(s): Other (See Comments) GEMMS Conversion ??? Naproxen ??? Penicillins ??? Rosiglitazone Other reaction(s): Other (See Comments) GEMMS Conversion Home Meds: Current Outpatient Medications on File Prior to Visit Medication Sig Dispense Refill ??? atorvastatin (LIPITOR) 40 mg tablet daily ??? furosemide (LASIX) 40 mg tablet every other day ??? glipiZIDE (GLUCOTROL XL) 5 mg 24 hr tablet daily ??? lisinopriL-hydrochlorothiazide (PRINZIDE) 20-12.5 mg per tablet daily ??? metFORMIN (GLUCOPHAGE) 1,000 mg tablet 2 (two) times a day ??? NIFEdipine XL (PROCARDIA XL) 30 mg 24 hr tablet daily ??? pioglitazone (ACTOS) 15 mg tablet daily ??? potassium chloride (MICRO-K) 10 mEq CR capsule every other day ??? warfarin (COUMADIN) 4 mg tablet Take 4 mg by mouth daily Take as directed per After Visit Summary. ??? warfarin (COUMADIN) 5 mg tablet Take 5 mg by mouth once Take as directed per After Visit Summary. No current facility-administered medications on file prior to visit. Social History Socioeconomic History ??? Marital status: Unknown Spouse name: Not on file ??? Number of children: Not on file ??? Years of education: Not on file ??? Highest education level: Not on file Occupational History ??? Not on file Tobacco Use ??? Smoking status: Current Every Day Smoker Packs/day: 1.00 Years: 37.00 Pack years: 37.00 ??? Smokeless tobacco: Never Used ??? Tobacco comment: .25 ppd now Substance and Sexual Activity ??? Alcohol use: Never ??? Drug use: Never ??? Sexual activity: Defer Other Topics Concern ??? Not on file Social History Narrative ??? Not on file Social Determinants of Health Financial Resource Strain: ??? Difficulty of Paying Living Expenses: Food Insecurity: ??? Worried About Running Out of Food in the Last Year: ??? Ran Out of Food in the Last Year: Transportation Needs: ??? Lack of Transportation (Medical): ??? Lack of Transportation (Non-Medical): Physical Activity: ??? Days of Exercise per Week: ??? Minutes of Exercise per Session: Stress: ??? Feeling of Stress : Social Connections: ??? Frequency of Communication with Friends and Family: ??? Frequency of Social Gatherings with Friends and Family: ??? Attends [employer] Services: ??? Active Member of Clubs or Organizations: ??? Attends Club or Organization Meetings: ??? Marital Status: Family History Problem Relation Age of Onset ??? Diabetes Mother Review of Systems: Per HPI, otherwise a complete review of systems was negative. OBJECTIVE: Vital Signs on Arrival: Temp: 36.7 ??C (98 ??F) Heart Rate: 100 SpO2: 96 %(on 2L) BP: 100/68 Vitals Signs (most recent): Temp: 36.7 ??C (98 ??F) Heart Rate: 100 SpO2: 96 %(on 2L) BP: 100/68 Admission Weight: Weight: 86.3 kg Physical Exam: General: Pleasant , cooperative female in NAD, on supplemental oxygen Neurologic: Awake. Alert. Oriented. Onofre equally. HENT: NCAT Eyes: Conjunctivae clear, sclera anicteric Neck: supple. No LAD. CV: RRR, no m/r/g. No edema. 2+ radial and DP pulses bilaterally. Pulm: CTAB, no r/r/w. Normal respiratory effort. Abdomen: Soft. Nontender. Nondistended. Bowel sounds present. No palpable masses or hepatosplenomegaly. Extremities: Warm and well perfused. No cyanosis/clubbing/synovitis. Skin: No rash or ecchymosis. ECHOCARDIOGRAM: Date of study 09/01/2020 - The study was technically difficult -Patient was in NSR - EF estimated to be 70-75% - LV normal size and hyperdynamic - RV grossly appears normal in size with probable normal systolic function. - All valves not visualized. However no gross significant abnormality seen. Total time spent in consultation, 45 minutes. More than 50% of this time was in [id number] interview, exam and counseling with the patient today. Electronically signed by Monica Silverman MD DATE/TIME: 02/15/2021 10:26 AM documented in this encounter Miscellaneous Notes Addendum Note - Beth Collins MD - 02/15/2021 9:20 AM PDT Addended by: BETH COLLINS on: 03/26/2021 12:52 PM Modules accepted: Orders documented in this encounter Plan of Treatment Upcoming Encounters Date Type Specialty Care Team Description 06/07/2021 Office Visit Pulmonology Beth Collins M D [address] [place] [id number] [phone] Scheduled Orders Name Type Priority Associated Diagnoses Order S chedule Ambulatory DME Supply General Supply Routine Pulmonary emphyse ma, Ordered: (Durable Medical unspecified emphysema Equipment) Clinic Use type ([facility]) Only Complete PFT with PFT Routine Pulmonary emphysema, Ex pected: DLCO unspecified emphysema 2020, type ([facility]) Expires: 03/26/2022 CT CHEST WITHOUT Imaging Routine Pulmonary emphysema, Exp ected: CONTRAST unspecified emphysema 2020, type ([facility]) Expires: 06/26/2021 documented as of this encounter Visit Diagnoses Diagnosis Pulmonary emphysema, unspecified emphyse ma type ([facility]) - Primary Tobacco abuse Tobacco use disorder Chronic respiratory failure with hypoxia ([facility]) documented in this encounter Insurance Payer Benefit Plan / Subscriber ID Effective Dates Phone Addre ss Type Group [employer] MEDICARE [id number] 2020-Present MEDICARE MANAGED COMPLETE HMO documented as of this encounter Advance Directives Documents on File Type Date Recorded 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
--- NOTE | 2021-04-13 13:01 | DI.CT.S_ITS ---
PROCEDURE: CT CHEST WO CON INDICATIONS: Worsening SOB; h/o smoking TECHNIQUE: Noncontrast 5 mm thick sections acquired from the pulmonary apices to the posterior costophrenic angles. 1 mm lung window, 5 mm thick coronal and sagittal and 7 mm axial MIP reformats were then acquired. For radiation dose reduction, the following was used: automated exposure control, adjustment of mA and/or kV according to patient size. COMPARISON: None. FINDINGS: Lungs: Bilateral severe upper lobe predominant centrilobular emphysema. Airway thickening in keeping with nonspecific bronchitis and/or reactive airways disease. Scattered subsegmental atelectasis and/or scarring. No focal consolidation. Ill-defined areas of mosaic lung attenuation seen in the lung bases. Given the size of the pulmonary arteries this may reflect chronic pulmonary arterial hypertension. Pleura: No pleural effusion or pneumothorax. Heart: Heart size is normal. Trace pericardial effusion. Mild coronary artery calcifications. There is prominent pericardial fat suggestive of lipomatosis. Chest nodes: Normal. Thyroid gland: Normal. Aorta: Normal in size. Pulmonary arteries: Enlarged central pulmonary arteries. The main pulmonary artery measures approximately 3.9 cm in diameter. Esophagus: Normal. Upper abdomen: No significant findings. Bones: Mild spondylitic changes IMPRESSION: Severe upper lobe predominant emphysema. Enlarged central pulmonary arteries and mosaic lung attenuation in the lung bases which suggests chronic pulmonary arterial hypertension. Trace pericardial effusion Mild coronary atherosclerosis. Scattered subsegmental atelectasis and/or scarring. No focal consolidation. Incidentally noted prominent pericardial fat raising possibility of lipomatosis. Dictated by: Damian Rodriguez M.D. on 04/13/2021 at 14:32 Approved by: Damian Rodriguez M.D. on 04/13/2021 at 14:39
[2021-04-13 13:17] LABS: COVID19 -Nasal RAPID Negative (Negative)
== END ==
PROVIDERS: PCP Student in an Organized Health Care Education/Training Program; Referring Provider Internal Medicine; Visit Provider Internal Medicine
DX: J44.9 Chronic obstructive pulmonary disease, unspecified (principal); Z20.822 Contact with and (suspected) exposure to COVID-19
CPT/HCPCS: 71250; 87635; 94060; 94726; 94729; C9803

== ENCOUNTER → 2021-04-13 12:41 | Outpatient (CLI) | payer MEDICARE, SELFPAY ==
[2020-10-03 22:34] VITALS: BMI 31.8
--- NOTE | 2021-04-18 11:16 | PM.PFT.1 ---
Pulmonary Function Test Referral & Results Date Patient Seen: 04/13/21 Requesting provider: Vladimir Olea Results: The spirometry demonstrates an FVC of 1.86 L which is 57% of predicted. The FEV1 was measured at 0.72 L which is 20% of predicted. The FEV1/FVC ratio was 39 which is 48% of predicted. Following the administration of bronchodilator there was a 21% improvement in FEV1 and a 55% improvement in FEF 25-75%. Lung volumes show an SVC of 1.99 L which is 65% of predicted. The diffusing capacity was measured at 9.59 which is 41% of predicted. The maximum voluntary ventilation was severely reduced Interpretation: This study demonstrates severe obstructive lung disease with FEV1 of less than 1 L. There is evidence of significant benefit following bronchodilator based on improvement in both FEV1 and FEF 25-75% as above There is also moderately severe restrictive lung disease based on reduction SVC There is also severe reduction in diffusing capacity Compared to PFTs performed in September 2013, current study shows worsening obstructive lung disease. Previous FEV1 was 1.38 L currently 0.72 L Diffusing capacity is essentially unchanged between the 2 studies however
== END ==
PROVIDERS: PCP Student in an Organized Health Care Education/Training Program; Referring Provider Student in an Organized Health Care Education/Training Program; Visit Provider Student in an Organized Health Care Education/Training Program
DX: J44.9 Chronic obstructive pulmonary disease, unspecified (principal)

== ENCOUNTER → 2021-07-06 11:23 | Outpatient (CLI) | payer MEDICARE, SELFPAY ==
[2020-10-03 22:34] VITALS: BMI 31.8
[2021-07-06 12:44] LABS: Hemoglobin A1C% w Est Avg Glu 6.2 % (4.0-6.0)
[2021-07-06 12:48] LABS: BUN Creatinine Ratio 17.2 (6-22); Blood Urea Nitrogen 17 mg/dL (7-17); Estimated Glomerular Filt Rate 57.8 mL/min (>60)
[2021-07-06 12:57] LABS: NT-proBNP (BNP-Adult 18+) 103 pg/mL (<125)
== END ==
PROVIDERS: PCP Student in an Organized Health Care Education/Training Program; Referring Provider Student in an Organized Health Care Education/Training Program; Visit Provider Student in an Organized Health Care Education/Training Program
DX: E11.9 Type 2 diabetes mellitus without complications (principal); I10 Essential (primary) hypertension; Z79.899 Other long term (current) drug therapy
CPT/HCPCS: 36415; 82565; 83036; 83880; 84520

== ENCOUNTER → 2021-12-13 11:22 | Outpatient (CLI) | payer MEDICARE, SELFPAY ==
[2020-10-03 22:34] VITALS: BMI 31.8
== END ==
PROVIDERS: PCP Student in an Organized Health Care Education/Training Program; Visit Provider Student in an Organized Health Care Education/Training Program
DX: Z20.822 Contact with and (suspected) exposure to COVID-19 (principal)
CPT/HCPCS: 87635

== ENCOUNTER → 2022-01-19 09:51 | Outpatient (CLI) | payer MEDICARE, SELFPAY ==
[2020-10-03 22:34] VITALS: BMI 31.8
[2022-01-19 10:23] LABS: INR 2.4 (0.9-1.3); Prothrombin Time 27.7 SECONDS (10.1-12.7)
[2022-01-19 10:51] LABS: BUN Creatinine Ratio 28.1 (6-22); Blood Urea Nitrogen 32 mg/dL (7-17)
[2022-01-19 10:53] LABS: Creatinine Urine Random 31.7 mg/dL
[2022-01-19 11:08] LABS: Microalbumin Urine Random < 0.6 mg/dL (0-1.6)
[2022-01-19 11:48] LABS: Hemoglobin A1C% w Est Avg Glu 5.9 % (4.0-6.0)
== END ==
PROVIDERS: PCP Student in an Organized Health Care Education/Training Program; Referring Provider Student in an Organized Health Care Education/Training Program; Visit Provider Student in an Organized Health Care Education/Training Program
DX: Z79.01 Long term (current) use of anticoagulants (principal); E11.9 Type 2 diabetes mellitus without complications
CPT/HCPCS: 36415; 82043; 82565; 82570; 83036; 84520; 85610

== ENCOUNTER → 2022-05-06 13:48 | Outpatient (CLI) | payer MEDICARE, SELFPAY ==
[2020-10-03 22:34] VITALS: BMI 31.8
[2022-05-06 14:52] LABS: Hemoglobin A1C% w Est Avg Glu 6.5 % (4.0-6.0)
[2022-05-06 14:57] LABS: BUN Creatinine Ratio 21.5 (6-22); Blood Urea Nitrogen 20 mg/dL (7-17); Estimated Glomerular Filt Rate > 60 mL/min (>60)
== END ==
PROVIDERS: PCP Student in an Organized Health Care Education/Training Program; Referring Provider Student in an Organized Health Care Education/Training Program; Visit Provider Student in an Organized Health Care Education/Training Program
DX: E11.9 Type 2 diabetes mellitus without complications (principal); N18.31 Chronic kidney disease, stage 3a
CPT/HCPCS: 36415; 82565; 83036; 84520

== ENCOUNTER → 2022-12-10 11:52 | Outpatient (CLI) | payer MEDICARE, SELFPAY ==
[2020-10-03 22:34] VITALS: BMI 31.8
[2022-12-10 12:57] LABS: Hemoglobin A1C% w Est Avg Glu 7.2 % (4.0-6.0)
[2022-12-10 14:10] LABS: BUN Creatinine Ratio 23.5 (6-22); Blood Urea Nitrogen 23 mg/dL (7-17); Calcium 9.6 mg/dL (8.4-10.2); Carbon Dioxide 33 mmol/L (22-32); Chloride 99 mmol/L (98-107); Estimated Glomerular Filt Rate > 60 mL/min (>60); Glucose 160 mg/dL (70-100); HEMOLYSIS < 15 (0-50); Potassium 4.2 mmol/L (3.4-5.1); Sodium 141 mmol/L (137-145)
== END ==
PROVIDERS: PCP Student in an Organized Health Care Education/Training Program; Referring Provider Student in an Organized Health Care Education/Training Program; Visit Provider Student in an Organized Health Care Education/Training Program
DX: E11.9 Type 2 diabetes mellitus without complications (principal); N18.31 Chronic kidney disease, stage 3a
CPT/HCPCS: 36415; 80048; 83036

== ENCOUNTER → 2023-05-02 15:14 | Outpatient (CLI) | payer MEDICARE, SELFPAY ==
[2020-10-03 22:34] VITALS: BMI 31.8
[2023-05-02 15:51] LABS: BUN Creatinine Ratio 17.5 (6-22); Blood Urea Nitrogen 24 mg/dL (7-17); Calcium 9.2 mg/dL (8.4-10.2); Carbon Dioxide 30 mmol/L (22-32); Chloride 102 mmol/L (98-107); Estimated Glomerular Filt Rate 44 mL/min (>60); Glucose 104 mg/dL (70-100); HEMOLYSIS < 15 (0-50); Potassium 4.1 mmol/L (3.4-5.1); Sodium 140 mmol/L (137-145)
[2023-05-03 06:19] LABS: x Labcorp Estim. Avg Glu (eAG) 140 mg/dL (.); x Labcorp Hemoglobin A1c 6.5 % (4.8-5.6)
== END ==
PROVIDERS: PCP Student in an Organized Health Care Education/Training Program; Referring Provider Student in an Organized Health Care Education/Training Program; Visit Provider Student in an Organized Health Care Education/Training Program
DX: N18.31 Chronic kidney disease, stage 3a (principal); E11.9 Type 2 diabetes mellitus without complications
CPT/HCPCS: 36415; 80048; 83036

== ENCOUNTER → 2023-08-12 12:52 | Outpatient (CLI) | payer OTHER, SELFPAY ==
[2020-10-03 22:34] VITALS: BMI 31.8
[2023-08-12 13:28] LABS: Add Manual Diff / Slide Review NO; Basophils Absolute Auto 100 /uL (0-100); Basophils Percent Auto 0.9 % (0-2); Eosinophils Absolute Auto 100 /uL (0-450); Eosinophils Percent Auto 0.9 % (2-4); Hematocrit 36.1 % (36-46); Lymphocytes Absolute Auto 3300 /uL (1100-4500); Lymphocytes Percent Auto 38.9 % (25-40); Mean Corpuscular HGB Conc 33.2 % (30-36); Mean Corpuscular Hemoglobin 29.4 PG (26-34); Mean Corpuscular Volume 88.7 fL (80-100); Monocytes Absolute Auto 400 /uL (0-900); Monocytes Percent Auto 5.2 % (3-14); Neutrophils Absolute Auto 4600 /uL (1500-7000); Neutrophils Percent Auto 54.1 % (50-75); Platelet Count 324 X10^3/uL (150-400); Red Blood Cell Count 4.07 X10^6/uL (4.0-5.2); Red Cell Distribution Width 14.7 % (11.6-14.8); White Blood Cell Count 8.5 X10^3/uL (4.5-11.0)
[2023-08-12 13:29] LABS: Appearance Urine UA CLEAR; Bilirubin Urine UA NEGATIVE (NEGATIVE); Color Urine UA YELLOW; Glucose Urine UA NEGATIVE (Negative); Ketones Urine UA NEGATIVE (NEGATIVE); Leukocyte Esterase Urine UA NEGATIVE (NEGATIVE); Nitrite Urine UA POSITIVE (Negative); Occult Blood Urine UA NEGATIVE (Negative); Protein Urine UA NEGATIVE (Negative); Specific Gravity Urine UA <=1.005 (1.000-1.035); Urobilinogen Urine UA 0.2 E.U./dL (0.2)
[2023-08-12 13:38] LABS: Bacteria Urine Moderate (10-30); RBC Urine 0-1/HPF (0-5/HPF); Squamous Epithelial Cell Urine 1-5 /HPF (0-5/HPF); WBC Urine 0-1/HPF (0-5/HPF)
[2023-08-12 13:39] LABS: Culture Indicated Urine Specimen Cultured
[2023-08-12 13:40] LABS: Hemoglobin A1C% w Est Avg Glu 5.7 % (4.0-6.0)
[2023-08-12 13:43] LABS: INR 1.5 (0.9-1.3); Prothrombin Time 16.7 SECONDS (10.1-12.7)
[2023-08-12 13:49] LABS: Alanine Aminotransferase 17 IU/L (<35); Albumin 4.2 g/dL (3.5-5.0); Albumin Globulin Ratio 1.4 (1.0-2.8); Alkaline Phosphatase 51 U/L (38-126); Aspartate Aminotransferase 20 IU/L (14-36); BUN Creatinine Ratio 13.5 (6-22); Bilirubin Total 0.5 mg/dL (0.2-1.3); Blood Urea Nitrogen 15 mg/dL (7-17); Calcium 9.9 mg/dL (8.4-10.2); Carbon Dioxide 25 mmol/L (22-32); Chloride 101 mmol/L (98-107); Estimated Glomerular Filt Rate 57 mL/min (>60); Globulin 2.9 g/dL (1.7-4.1); Glucose 118 mg/dL (70-100); HEMOLYSIS < 15 (0-50); Potassium 4.5 mmol/L (3.4-5.1); Sodium 136 mmol/L (137-145); Total Protein 7.1 g/dL (6.3-8.2)
== END ==
PROVIDERS: PCP Pediatrics; Referring Provider Pediatrics; Visit Provider Pediatrics
DX: E11.9 Type 2 diabetes mellitus without complications (principal); Z79.01 Long term (current) use of anticoagulants; N18.31 Chronic kidney disease, stage 3a; I10 Essential (primary) hypertension; E11.69 Type 2 diabetes mellitus with other specified complication; E78.5 Hyperlipidemia, unspecified; I48.0 Paroxysmal atrial fibrillation
CPT/HCPCS: 36415; 80053; 81003; 81015; 83036; 85025; 85610; 87077; 87086; 87186

== ENCOUNTER → 2023-08-26 12:11 | Outpatient (CLI) | payer OTHER, MEDICAID, SELFPAY ==
[2020-10-03 22:34] VITALS: BMI 31.8
--- NOTE | 2023-08-26 12:13 | DI.US.S_ITS ---
PROCEDURE: US ABDOMEN COMPLETE INDICATIONS: ABDOMINAL PAIN TECHNIQUE: Real-time scanning was performed of the abdominal and retroperitoneal organs, with image documentation. COMPARISON: CT, ABDOMEN/PELVIS WITH CONTRAST, 12/08/2015, 18:13. [facility], US, ABDOMEN COMPLETE, 12/08/2015, 17:13. FINDINGS: Liver: Liver is diffusely increased in echogenicity. No focal hepatic abnormalities identified. Normal hepatic size. Gallbladder: Multiple gallstones present. No gallbladder wall thickening or pericholecystic fluid. Negative sonographic Mast sign. Biliary ducts: Intrahepatic bile ducts are non-dilated. Extrahepatic bile duct caliber measures 4 mm. Normal is 6-7 mm or less in diameter, or 10 mm or less post-cholecystectomy. Pancreas: Visualized portions of the pancreas are sonographically normal. Spleen: Spleen is normal in size and homogeneous in echotexture. Kidneys: Kidneys are normal in size and echotexture. Right kidney measures 10 cm long; left kidney measures 9.8 cm long. No hydronephrosis. 7 mm right and 8 mm left possible nonobstructing stones Aorta: Visualized aorta is normal in caliber at less than 3 cm. Iliacs: Proximal common iliac arteries are normal in caliber at less than 2.5 cm. IVC: Intrahepatic inferior vena cava is patent. Miscellaneous: No free abdominal fluid. IMPRESSION: 1. Increased hepatic echogenicity noted possibly related to hepatic steatosis but other sources of hepatocellular disease cannot be excluded. Recommend clinical correlation. 2. Cholelithiasis without acute cholecystitis. 3. Possible small bilateral nonobstructing renal stones. Dictated by: Favian Gibson [facility] Interpreted: Melody Vargas MD on 08/26/2023 at 13:20 Approved by: Melody Vargas M.D. on 08/26/2023 at 17:25
== END ==
PROVIDERS: PCP Pediatrics; Referring Provider Family Medicine; Visit Provider Family Medicine
DX: K80.20 Calculus of gallbladder without cholecystitis without obstruction (principal); R10.9 Unspecified abdominal pain
CPT/HCPCS: 76700

== ENCOUNTER → 2024-01-29 11:27 | Outpatient (CLI) | payer OTHER, MEDICAID, SELFPAY ==
[2020-10-03 22:34] VITALS: BMI 31.8
[2024-01-29 13:47] LABS: Alanine Aminotransferase 12 IU/L (<35); Albumin 3.9 g/dL (3.5-5.0); Albumin Globulin Ratio 1.4 (1.0-2.8); Alkaline Phosphatase 50 U/L (38-126); Aspartate Aminotransferase 21 IU/L (14-36); BUN Creatinine Ratio 22.1 (6-22); Bilirubin Total 0.5 mg/dL (0.2-1.3); Blood Urea Nitrogen 17 mg/dL (7-17); Carbon Dioxide 31 mmol/L (22-32); Chloride 106 mmol/L (98-107); Cholesterol 123 mg/dL (140-199); Estimated Glomerular Filt Rate > 60 mL/min (>60); Globulin 2.7 g/dL (1.7-4.1); Glucose 103 mg/dL (80-110); HDL Cholesterol 46 mg/dL (40-60); HEMOLYSIS < 15 (0-50); LDL Cholesterol Calculated 54 mg/dL (<100); Potassium 3.6 mmol/L (3.4-5.1); Sodium 138 mmol/L (137-145); Total Protein 6.6 g/dL (6.3-8.2); Triglycerides 114 mg/dL (35-150)
[2024-01-29 13:49] LABS: Hemoglobin A1C% w Est Avg Glu 5.4 % (4.0-6.0)
[2024-01-29 15:58] LABS: Microalbumin Urine Random 1.4 mg/dL (0-1.6)
[2024-01-29 15:59] LABS: Creatinine Urine Random 39.8 mg/dL; Microalbumi Creatinin Ratio Ur 35.1 ug/mg CR (<30)
[2024-01-29 16:42] LABS: Hep C Virus Ab w/Reflex Quant NEGATIVE s/c (NEGATIVE)
== END ==
PROVIDERS: PCP Family Medicine; Referring Provider Family Medicine; Visit Provider Family Medicine
DX: E11.9 Type 2 diabetes mellitus without complications (principal); I10 Essential (primary) hypertension; E11.69 Type 2 diabetes mellitus with other specified complication; E78.5 Hyperlipidemia, unspecified; N18.31 Chronic kidney disease, stage 3a; Z91.89 Other specified personal risk factors, not elsewhere classified; Z11.59 Encounter for screening for other viral diseases
CPT/HCPCS: 36415; 80053; 80061; 82043; 82570; 83036; 86803

== ENCOUNTER → 2024-08-12 14:11 | Outpatient (CLI) | payer MEDICARE, MEDICAID, SELFPAY ==
[2020-10-03 22:34] VITALS: BMI 31.8
--- NOTE | 2024-08-12 14:11 | DI.US.S_ITS ---
PROCEDURE: US ABDOMEN LIMITED INDICATIONS: Known gallstones, evaluate burden TECHNIQUE: Real-time scanning was performed of the abdominal and retroperitoneal organs, with image documentation. COMPARISON: [facility], US, US ABDOMEN COMPLETE, 08/26/2023, 12:23. FINDINGS: Liver: Measures 16 cm. Increased in echogenicity. Focal fatty sparing adjacent to the gallbladder. Main portal vein measures 12 mm in diameter. There is hepatopetal flow. Peak systolic velocity 49 cm/sec. Gallbladder: A few tiny gallstones No wall thickening. No pericholecystic edema. Negative sonographic Mast's sign. Biliary ducts: Intrahepatic bile ducts are non-dilated. Extrahepatic bile duct caliber measures 7 mm. Normal is 6-7 mm or less in diameter, or 10 mm or less post-cholecystectomy. Pancreas: Visualized portions of the pancreas are sonographically normal. Tail is not well seen due to bowel gas. Miscellaneous: No free abdominal fluid. Trace left pleural effusion seen. IMPRESSION: 1. No acute cholecystitis. Tiny gallstones. 2. Increased hepatic echogenicity most consistent with hepatic steatosis. Other forms of hepatocellular disease could have similar appearance. Dictated by: Vladislav Yuan M.D. on 08/12/2024 at 16:46 Approved by: Vladislav Yuan M.D. on 08/12/2024 at 16:50
== END ==
LOC: US 14:11
PROVIDERS: PCP Family Medicine; Referring Provider Family Medicine; Visit Provider Family Medicine
DX: K80.50 Calculus of bile duct without cholangitis or cholecystitis without obstruction (principal); K80.20 Calculus of gallbladder without cholecystitis without obstruction
CPT/HCPCS: 76705

== ENCOUNTER → 2024-09-03 15:20 | Outpatient (CLI) | payer MEDICARE, MEDICAID, SELFPAY ==
[2020-10-03 22:34] VITALS: BMI 31.8
[2024-09-03 19:41] LABS: Appearance Urine UA CLEAR; Bilirubin Urine UA NEGATIVE (NEGATIVE); Color Urine UA YELLOW; Glucose Urine UA 3+ g/dL (Negative); Ketones Urine UA NEGATIVE (NEGATIVE); Leukocyte Esterase Urine UA NEGATIVE (NEGATIVE); Nitrite Urine UA POSITIVE (Negative); Occult Blood Urine UA NEGATIVE (Negative); Protein Urine UA NEGATIVE (Negative); Urobilinogen Urine UA 0.2 E.U./dL (0.2)
[2024-09-03 19:48] LABS: pH Urine UA 5.5 (4.5-8.0)
[2024-09-03 19:49] LABS: Bacteria Urine Many (>30); Culture Indicated Urine Cult Not Indicated; RBC Urine None Seen (0-5/HPF); Squamous Epithelial Cell Urine 0-1 /HPF (0-5/HPF); Urine Volume 10mL (spun); WBC Urine None Seen (0-5/HPF)
[2024-09-03 19:58] LABS: Creatinine Urine Random 38.21 mg/dL
[2024-09-03 20:03] LABS: Microalbumin Urine Random 1.2 mg/dL (0-1.6)
== END ==
PROVIDERS: PCP Family Medicine; Visit Provider Family Medicine
DX: I10 Essential (primary) hypertension (principal); E11.40 Type 2 diabetes mellitus with diabetic neuropathy, unspecified
CPT/HCPCS: 81001; 82043; 82570; 87077; 87086; 87186

== ENCOUNTER 2024-11-01 13:05 | Observation (INO) | payer MEDICARE, MEDICAID, SELFPAY ==
[2020-10-03 22:34] VITALS: BMI 31.8
[2024-11-01] VITALS (27 sets, daily range): BP systolic 109–158; BP diastolic 63–85; PULSE 102–129; RESP 12–44; TEMP 36.1–36.9; O2SAT 85–100; BMI 30.1
--- NOTE | 2024-11-01 13:12 | EKG_ITS ---
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
--- NOTE | 2024-11-01 13:14 | DI.RAD.S_ITS ---
PROCEDURE: XR CHEST 1V INDICATIONS: chest pain TECHNIQUE: One view of the chest was acquired. COMPARISON: [facility], CR, XR CHEST 1V, 02/01/2020, 4:21. FINDINGS: Surgical changes and devices: None. Lungs and pleura: Lungs are clear. No pleural effusions or pneumothorax. Mediastinum: Mediastinal contours appear normal. Heart size is normal. Bones and chest wall: No suspicious bony lesions. Overlying soft tissues appear unremarkable. IMPRESSION: No acute cardiopulmonary abnormality is seen. Dictated by: Vargas Gamez M.D. on 11/01/2024 at 14:13 Approved by: Vargas Gamez M.D. on 11/01/2024 at 14:14
--- NOTE | 2024-11-01 13:33 | ED_ITS ---
HPI - General Adult General Chief complaint: Syncope Stated complaint: syncope Time Seen by Provider: 11/01/24 13:22 Source: patient Mode of arrival: Wheelchair History of Present Illness HPI narrative: Patient is a 58-year-old female. Is on anticoagulation secondary to history of strokes. Also has a history of COPD. Is on home oxygen at 3 L consistently. She was here for evaluation of a syncopal episode. She states that she thinks it was some time approximately 36 hours ago she went from her bed to the toilet. She states that she did have to take her oxygen off in order to do this. This is not uncommon for her to take her oxygen off for short period of time while using the restroom. He states that while she was going to the restroom she had an episode where she passed out. She did hit her head. She was unsure as to how long she was unconscious. She was able to get back to her bed but unable to get herself back up in the bed. She stated that it was not until approximately 24 hours later that she felt like she was becoming more aware. She states prior to the fall she was not having chest pain or shortness of breath over her baseline or lightheadedness. No fevers. No urinary symptoms or change in bowel habits. She states that she currently is feeling back to normal. Has some bumps and bruises but no other extremity complaints. Related Data Home Medications Medication Instructions Recorded Confirmed ibuprofen 800 mg tablet 800 mg PO DAILY 11/11/22 09/03/24 Previous Rx's Medication Instructions Recorded potassium chloride 10 mEq 10 meq PO DAILY #90 caps 03/19/21 capsule,extended release ondansetron HCl 4 mg tablet 4 mg PO Q8H PRN nausea and 09/19/23 vomiting #30 tabs melatonin 3 mg capsule 3 mg PO BEDTIME PRN sleep #30 caps 10/08/23 atorvastatin 40 mg tablet 40 mg PO BEDTIME #90 tabs 01/06/24 sumatriptan succinate 50 mg tablet See Rx Instructions PO .COMPLEX 01/09/24 #30 tabs ursodiol 300 mg capsule 300 mg PO BID #180 caps 01/09/24 fluticasone propionate 50 1 spray intranasal DAILY #16 grams 02/20/24 mcg/actuation nasal spray,suspension home oxygen concentrator #1 ea 05/21/24 portable oxygen concentrator #1 ea 05/21/24 tiotropium 2.5 mcg-olodaterol 2.5 2 puff inhalation DAILY #4 grams 05/24/24 mcg/actuation mist for inhalation (Stiolto Respimat) diazepam 2 mg tablet See Rx Instructions PO DAILY #30 07/23/24 tabs apixaban 5 mg tablet (Eliquis) 5 mg PO BID #180 tabs 08/17/24 lisinopril 20 mg tablet 20 mg PO DAILY #90 tabs 08/17/24 venlafaxine 150 mg 150 mg PO DAILY #30 caps 08/17/24 capsule,extended release 24 hr metformin 500 mg tablet 500 mg PO BID #180 tabs 08/19/24 loratadine 10 mg tablet 10 mg PO DAILY #90 tabs 09/12/24 Allergies Allergy/AdvReac Type Severity Reaction Status Date / Time azithromycin Allergy Severe ARM PAIN Verified 11/01/24 13:19 AND FACIAL REDNESS DURING INFUSION naproxen Allergy Severe Hives Verified 11/01/24 13:19 penicillin G Allergy Severe RASH Verified 11/01/24 13:19 codeine Allergy Mild RASH Verified 11/01/24 13:19 hydrocodone Allergy Mild RASH Verified 11/01/24 13:19 Review of Systems Review of Systems ROS Unobtainable: All systems reviewed & are unremarkable except as noted in HPI and below Patient History Medical History Neoplasm of uncertain behavior of skin of forearm Fibromyalgia Atrial fibrillation Anticoagulation adequate with anticoagulant therapy CVA (cerebral vascular accident) Generalized anxiety disorder End stage chronic obstructive pulmonary disease Diabetic neuropathy Surgical History History of local excision of skin lesion History of Family History Father Alcoholic cirrhosis Mother Age: 81 Diabetes mellitus type II, controlled CVA (cerebral infarction) Social History marital status: unknown details: pt. lives with son household members: family and other lives independently: Yes occupational status: disabled Smoking Status: Current every day smoker alcohol intake: former substance use type: does not use Smoking Status: Current every day smoker tobacco type: cigarettes alcohol intake frequency: holidays/special occasions only Exam Initial Vital Signs Initial Vital Signs: Vital Signs Temperature 97.0 F L 11/01/24 13:05 Pulse Rate 116 H 11/01/24 13:05 Respiratory Rate 18 11/01/24 13:05 Blood Pressure 144/68 H 11/01/24 13:05 Pulse Oximetry 99 11/01/24 13:05 Oxygen Delivery Method Nasal Cannula 11/01/24 13:05 Oxygen Flow Rate 3 11/01/24 13:05 Const General: cooperative, comfortable and No ill appearing HENMT Head: normal to inspection and normocephalic Resp Effort & Inspection: no cough and tachypneic Auscultation: clear to auscultation bilaterally Cardio Rate: regular rate Rhythm: regular rhythm Skin General: no rashes or lesions noted Neuro General: patient alert, patient awake, patient oriented x3 and moves all extremities Extrem Other: No gross deformities Scores GCS Sylvia coma scale eye opening: Spontaneous Sylvia coma scale verbal response: Orientated Sylvia coma scale motor response: Obey commands Durbin coma scale total score: 15 Course Orders Ordered: ED Orders 11/01/24 13:14 XR chest 1V Stat EKG-12 Lead Stat 11/01/24 13:15 Complete Blood Count AUTO DIFF Stat Comprehensive Metabolic Panel Stat Lipase Stat Magnesium Stat NT-proBNP (BNP-Adult 18+) Stat PTT Partial Thromboplastin [place] Stat Prothrombin Time INR Stat Troponin & CK Cardiac Panel Stat 11/01/24 13:34 CT head/brain wo con Stat 11/01/24 15:20 Troponin & CK Cardiac Panel Stat 11/01/24 17:10 Consult to Physician Stat Consult to Physician Stat Discontinued Medications Nicotine (Nicotine 14 Patch) 14 mg TOP NOW ONE Stop: 11/01/24 17:12 Vital Signs Vital signs: Vital Signs - 8 hr 11/01/24 13:05 11/01/24 13:09 11/01/24 13:12 Temperature 97.0 F L Pulse Rate 116 H 129 H 114 H Respiratory Rate 18 33 H Blood Pressure 144/68 H Pulse Oximetry 99 85 L 100 Oxygen Delivery Method Nasal Cannula Oxygen Flow Rate 3 11/01/24 13:12 11/01/24 13:19 11/01/24 13:19 Temperature Pulse Rate 112 H Respiratory Rate 28 H Blood Pressure 144/68 H 143/82 H Pulse Oximetry 98 Oxygen Delivery Method Nasal Cannula Oxygen Flow Rate 3 11/01/24 13:30 11/01/24 13:31 11/01/24 13:31 Temperature Pulse Rate 110 H 109 H Respiratory Rate 43 H 33 H Blood Pressure 129/79 Pulse Oximetry 99 99 Oxygen Delivery Method Oxygen Flow Rate 11/01/24 14:00 11/01/24 14:03 11/01/24 14:03 Temperature Pulse Rate 103 H 110 H Respiratory Rate 33 H 32 H Blood Pressure 126/73 Pulse Oximetry 99 100 Oxygen Delivery Method Nasal Cannula Oxygen Flow Rate 3 11/01/24 14:16 11/01/24 14:16 11/01/24 14:30 Temperature Pulse Rate 126 H 104 H Respiratory Rate 41 H 25 H Blood Pressure 131/80 Pulse Oximetry 96 98 Oxygen Delivery Method Oxygen Flow Rate 11/01/24 14:30 11/01/24 14:45 11/01/24 14:45 Temperature Pulse Rate 102 H Respiratory Rate 27 H Blood Pressure 125/73 121/64 Pulse Oximetry 99 Oxygen Delivery Method Nasal Cannula Oxygen Flow Rate 3 11/01/24 15:00 11/01/24 15:01 11/01/24 15:01 Temperature Pulse Rate 105 H 105 H Respiratory Rate 30 H 28 H Blood Pressure 125/69 Pulse Oximetry 99 99 Oxygen Delivery Method Oxygen Flow Rate 11/01/24 15:15 11/01/24 15:15 11/01/24 15:30 Temperature Pulse Rate 108 H Respiratory Rate 31 H Blood Pressure 128/81 117/69 Pulse Oximetry 99 Oxygen Delivery Method Nasal Cannula Oxygen Flow Rate 2 11/01/24 15:30 11/01/24 15:45 11/01/24 15:45 Temperature Pulse Rate 109 H 110 H Respiratory Rate 35 H Blood Pressure 109/63 Pulse Oximetry 97 Oxygen Delivery Method Oxygen Flow Rate 11/01/24 16:00 11/01/24 16:00 11/01/24 16:17 Temperature Pulse Rate 104 H 128 H Respiratory Rate 25 H 31 H Blood Pressure 117/64 Pulse Oximetry 96 96 Oxygen Delivery Method Oxygen Flow Rate 11/01/24 16:17 11/01/24 16:30 11/01/24 16:30 Temperature Pulse Rate 116 H Respiratory Rate 24 Blood Pressure 127/79 129/73 Pulse Oximetry 98 Oxygen Delivery Method Oxygen Flow Rate Medical Decision Making Medical Records Medical records reviewed: Yes I reviewed the patient's medical records. Lab Data Lab results reviewed: Yes I reviewed the patient's lab results. 11/01/24 13:15 11/01/24 13:15 Labs: Lab Results 11/01/24 11/01/24 Range/Units 13:15 15:20 WBC 15.2 H (4.5-11.0) X10^3/uL RBC 4.42 (4.0-5.2) X10^6/uL Hgb 13.0 (12.0-16.0) g/dL Hct 39.8 (36-46) % MCV 90.2 (80-100) fL MCH 29.5 (26-34) PG MCHC 32.7 (30-36) % RDW 13.3 (11.6-14.8) % Plt Count 280 (150-400) X10^3/uL Neut % (Auto) 70.9 (50-75) % Lymph % (Auto) 21.7 L (25-40) % [place] % (Auto) 6.7 (3-14) % Eos % (Auto) 0.0 L (2-4) % Baso % (Auto) 0.7 (0-2) % Neut # (Auto) 50981 H (8247-4030) /uL Lymph # (Auto) 3300 (2648-3993) /uL [place] # (Auto) 1000 H (0-900) /uL Eos # (Auto) 0 (0-450) /uL Baso # (Auto) 100 (0-100) /uL PT 14.7 H (9.4-12.5) SECONDS INR 1.3 (0.9-1.3) APTT 36 (25.1-36.5) SECONDS Sodium 138 (137-145) mmol/L Potassium 3.4 (3.4-5.1) mmol/L Chloride 99 (98-107) mmol/L Carbon Dioxide 31 (22-32) mmol/L BUN 22 H (7-17) mg/dL Creatinine 1.00 (0.52-1.04) mg/dL Estimated GFR > 60 (>60) mL/min BUN/Creatinine Ratio 22.0 (6-22) Glucose 223 H (80-110) mg/dL Calcium 9.7 (8.4-10.2) mg/dL Magnesium 1.7 (1.6-2.3) mg/dL Total Bilirubin 0.7 (0.2-1.3) mg/dL AST 32 (14-36) IU/L ALT 28 (<35) IU/L Alkaline Phosphatase 77 (38-126) U/L Total Creatine Kinase 197 H 170 H (30-135) U/L Troponin I 0.166 H* 0.163 H* (0.01-0.034) ng/mL NT-Pro-B Natriuret Pep 1330 H (<125) pg/mL Total Protein 7.3 (6.3-8.2) g/dL Albumin 4.4 (3.5-5.0) g/dL Globulin 2.9 (1.7-4.1) g/dL Albumin/Globulin Ratio 1.5 (1.0-2.8) Lipase 92 (23-300) U/L Imaging Data Chest x-ray: Radiologist's Impression: PROCEDURE: XR CHEST 1V INDICATIONS: chest pain TECHNIQUE: One view of the chest was acquired. COMPARISON: [facility], CR, XR CHEST 1V, 02/01/2020, 4:21. FINDINGS: Surgical changes and devices: None. Lungs and pleura: Lungs are clear. No pleural effusions or pneumothorax. Mediastinum: Mediastinal contours appear normal. Heart size is normal. Bones and chest wall: No suspicious bony lesions. Overlying soft tissues appear unremarkable. IMPRESSION: No acute cardiopulmonary abnormality is seen. CT scan - head: Radiologist's Impression: PROCEDURE: CT HEAD/BRAIN WO CON INDICATIONS: Fall on blood thinners TECHNIQUE: Noncontrast 4.5 mm thick angled axial sections acquired from the foramen magnum to the vertex, with coronal and sagittal reformats. For radiation dose reduction, the following was used: automated exposure control, adjustment of mA and/or kV according to patient size. COMPARISON: [facility], CT, CT HEAD/BRAIN WO CON, 08/31/2020, 14:28. FINDINGS: Image quality: Diagnostic. CSF spaces: Basal cisterns are patent. No extra-axial fluid collections. The ventricles are symmetric in size and shape. Brain: Stable findings. Old right temporal occipital infarct with encephalomalacia. No intracranial bleeds or masses. There is cerebral volume loss for age, with resultant ventricular and sulcal prominence. There are periventricular and deep white matter chronic small vessel ischemic changes. There is intracranial internal carotid artery atherosclerosis. Skull and face: Calvarium and visualized facial bones appear intact, without suspicious lesions. Sinuses: Visualized sinuses and mastoids are clear. IMPRESSION: Old infarct, small vessel ischemic change. No acute intracranial abnormality. ECG Data Attestation: I personally reviewed and interpreted this ECG as follows: Interpretation: Sinus tachycardia Ventricular rate 113 Normal axis Normal QRS Normal QTC Nonspecific ST T wave changes MDM Narrative Medical decision making narrative: Patient had what she reports as a syncopal episode with a period of time of amnesia after the event. She currently states she feels like she was back to normal but it was not until later this afternoon when this occurred. She denies chest pain. She has an elevated troponin but it was unchanged with a repeat. It is elevated from prior labs from 2019. Nonischemic EKG. Patient was at her baseline oxygen requirement. She was tachycardic but she states that her heart rate is ?always fast? she was not in overt heart failure. Given her elevated troponin and the syncopal episode and amnesia from the past 24-36 hours I do feel that admission to the hospital for observation and cardiac monitoring and trending of troponins most likely echocardiogram is warranted. Discussed case with Dr. Quinn on-call for the patient's primary doctor who will admit. Discussed the need for admission with the patient who expressed understanding and agreement. Discharge Plan Departure Patient Disposition: Admitted as Observation Clinical Impression: Syncope, Elevated troponin, COPD (chronic obstructive pulmonary disease) Admit Date/Time: 11/01/24 17:10 Admit Provider: Michael Belle
[2024-11-01 13:35] LABS: INR 1.3 (0.9-1.3); Prothrombin Time 14.7 SECONDS (9.4-12.5)
[2024-11-01 13:38] LABS: PTT Partial Thromboplastin Tim 36 SECONDS (25.1-36.5)
[2024-11-01 13:43] LABS: Add Manual Diff / Slide Review NO; Alanine Aminotransferase 28 IU/L (<35); Albumin 4.4 g/dL (3.5-5.0); Albumin Globulin Ratio 1.5 (1.0-2.8); Alkaline Phosphatase 77 U/L (38-126); Aspartate Aminotransferase 32 IU/L (14-36); Basophils Absolute Auto 100 /uL (0-100); Basophils Percent Auto 0.7 % (0-2); Bilirubin Total 0.7 mg/dL (0.2-1.3); Blood Urea Nitrogen 22 mg/dL (7-17); Calcium 9.7 mg/dL (8.4-10.2); Carbon Dioxide 31 mmol/L (22-32); Chloride 99 mmol/L (98-107); Creatine Kinase 197 U/L (30-135); Eosinophils Absolute Auto 0 /uL (0-450); Estimated Glomerular Filt Rate > 60 mL/min (>60); Globulin 2.9 g/dL (1.7-4.1); Glucose 223 mg/dL (80-110); HEMOLYSIS < 15 (0-50); Hematocrit 39.8 % (36-46); Lipase 92 U/L (23-300); Lymphocytes Absolute Auto 3300 /uL (1100-4500); Lymphocytes Percent Auto 21.7 % (25-40); Magnesium 1.7 mg/dL (1.6-2.3); Mean Corpuscular HGB Conc 32.7 % (30-36); Mean Corpuscular Hemoglobin 29.5 PG (26-34); Mean Corpuscular Volume 90.2 fL (80-100); Monocytes Absolute Auto 1000 /uL (0-900); Monocytes Percent Auto 6.7 % (3-14); Neutrophils Absolute Auto 10800 /uL (1500-7000); Neutrophils Percent Auto 70.9 % (50-75); Platelet Count 280 X10^3/uL (150-400); Potassium 3.4 mmol/L (3.4-5.1); Red Blood Cell Count 4.42 X10^6/uL (4.0-5.2); Red Cell Distribution Width 13.3 % (11.6-14.8); Sodium 138 mmol/L (137-145); Total Protein 7.3 g/dL (6.3-8.2); White Blood Cell Count 15.2 X10^3/uL (4.5-11.0)
[2024-11-01 13:54] LABS: NT-proBNP (BNP-Adult 18+) 1330 pg/mL (<125)
[2024-11-01 14:00] LABS: Troponin I 0.166 ng/mL (0.01-0.034)
[2024-11-01 15:48] LABS: Creatine Kinase 170 U/L (30-135)
[2024-11-01 16:30] LABS: Troponin I 0.163 ng/mL (0.01-0.034)
[2024-11-01] MEDS: NICOTINE 14 PATCH 14 MG TOP (17:37)
--- NOTE | 2024-11-01 19:02 | PC.NURSE ---
Dr. Alanis (device sales consultant) paged to notify of patient's arrival to room 211 and for admission orders. Patient without acute complaint at this time. Oriented to room and call light. VSS, placed on tele #2. Bed alarm activated for safety and call light within reach.
--- NOTE | 2024-11-01 19:08 | DI.ECHO.S_ITS ---
[facility] : : [address] : : [place] : : [id number] : : Phone: [phone] Echocardiogram Report + + :Name: BEE POOLE Study Date: 11/02/2024 Height: 63 in : :[facility] ReadingLocation: Weight: 170 lb : : Gender: Female BSA: 1.8 m2 : :: 1965 Age: 58 yrs BP: 106/81 mmHg: :Reason For Study: Elevated Troponin : :Ordering Physician: AKBAR : :ALISIA Performed By: Lisa Velasquez : :Referring: ALISIA WEBBER : + + Interpretation Summary 1. Hyperdynamical LV contractility with EF > 65%. No WMA. Borderline cLVH. Unable to comment on diastolic function. Increase gradient with valsava across LVOT without obvious ERLINDA noted. This is most likely due to hyperdyanmic LV contraction. 2. Grossly normal RV contractility. Possible RVH. 3. RA/RV not well visualized. LA/LV normal sized. 4. No significant valvular abnormalities. 5. No obvious intracardiac shunts. 6. No obvious intracardiac masses/thrombi. 7. No hemodynamically significant pericardial effusion. 8. Low right sided filling pressures. Conclusion: Hyperdynamic LV systolic function without significant valvular abnormalities nor LVOT obstruction. Possible right ventricular hypertrophy. No significant changes noted when compared with previous study. Procedure: A two-dimensional transthoracic echocardiogram with color flow and Doppler was performed. The study quality was technically difficult. Comparison is made with the echocardiogram of 09/01/2020. The patient was in sinus tachycardia with heart rates between 100-112 bpm during the exam. Left Ventricle: The left ventricle is normal in size. Left ventricular wall thickness is mildly increased. An intracavitary gradient is suspected. The left ventricle is hyperdynamic. Left ventricular ejection fraction is estimated to be >65. Right Ventricle: The right ventricle is not well visualized. The right ventricle grossly appears normal in size with probable normal systolic function. Atria: The left atrial size is normal. Right atrium not well visualized. There is no Doppler evidence for an interatrial shunt. Mitral Valve: The mitral valve is grossly normal. The mitral valve mean gradient is 2.7 mmHg. There is no mitral regurgitation noted. Aortic Valve: The aortic valve is trileaflet. The aortic valve opens well. There is no aortic valve stenosis. No aortic regurgitation is present. Tricuspid Valve: The tricuspid valve is not well visualized. There is trace tricuspid regurgitation. Pulmonary artery pressures cannot be estimated because of the lack of a measurable TR jet velocity. Pulmonic Valve: The pulmonic valve leaflets are thin and pliable; valve motion is normal. There is no pulmonic valvular regurgitation. Great Vessels: The aortic root is not well visualized. The dimensions of the ascending aorta are normal. The IVC is of normal diameter and collapses greater than 50% with a sniff. This suggests a low right atrial pressure of 3 mm Hg. Pericardium/ Pleura There is an anterior echo-free space consistent with a fat pad. There is no pleural effusion. MMode/2D Measurements & Calculations LVIDd: 4.3 cm LVOT diam: 2.0 cm LVIDs: 3.0 cm asc Aorta Diam: 3.2 cm FS: 29.6 % IVSd: 1.0 cm LVPWd: 1.0 cm LV willard. diameter/BSA (cm/m^2): 2.4 LV sys. diameter/BSA (cm/m^2): 1.7 LA A2 area: 11.3 cm2 IVC diam: 1.4 cm LA A4 area: 13.3 cm2 LA length (vol): 4.4 cm LA vol: 28.7 ml LA vol index: 15.9 ml/m2 RVD1 (basal): 3.2 cm Doppler Measurements & Calculations Ao V2 max: 165.3 cm/sec LVOT Max Job: 142.3 cm/sec Ao V2 mean: 121.0 cm/sec LV V1 max P.1 mmHg Ao max P.9 mmHg LV V1 VTI: 21.4 cm Ao mean P.5 mmHg LIBBY(I,D): 3.2 cm2 Ao V2 VTI: 21.4 cm LIBBY(V,D): 2.8 cm2 sev ratio: 1.00 LIBBY indexed to BSA (cm^2/m^2): 1.8 MV E max job: 61.4 cm/sec PA V2 max: 105.9 cm/sec MV A max job: 81.0 cm/sec PA V2 mean: 71.2 cm/sec MV E/A: 0.76 PA mean P.3 mmHg Med Peak E' Job: 7.6 cm/sec PA pr(Accel): 39.2 mmHg E/E' med: 8.1 Lat Peak E' Job: 5.3 cm/sec E/E' lat: 11.5 E/e' average: 9.8 MV dec time: 0.22 sec MVA(VTI): 3.6 cm2 MV V2 mean: 77.2 cm/sec SV(LVOT): 68.3 ml MV mean P.7 mmHg MV V2 VTI: 19.0 cm Reading Physician:
[2024-11-01] MEDS: METFORMIN HCL 500 MG TABLET PO (21:14)
[2024-11-01] MEDS: ATORVASTATIN 20 MG TABLET 40 MG PO (21:14)
[2024-11-01] MEDS: APIXABAN 5 MG TABLET PO (21:14)
[2024-11-01] MEDS: ursodioL 300 MG CAPSULE PO (21:15)
[2024-11-01 23:34] LABS: Creatine Kinase 251 U/L (30-135)
[2024-11-01 23:53] LABS: Troponin I 0.136 ng/mL (0.01-0.034)
[2024-11-02 00:01] VITALS: BP 110/73; PULSE 120; RESP 21; TEMP 36.7; O2SAT 96
[2024-11-02 06:41] LABS: Add Manual Diff / Slide Review NO; Basophils Absolute Auto 100 /uL (0-100); Basophils Percent Auto 0.5 % (0-2); Eosinophils Absolute Auto 0 /uL (0-450); Eosinophils Percent Auto 0.1 % (2-4); Hematocrit 33.9 % (36-46); Hemoglobin 11.1 g/dL (12.0-16.0); Lymphocytes Absolute Auto 4000 /uL (1100-4500); Lymphocytes Percent Auto 35.5 % (25-40); Mean Corpuscular HGB Conc 32.6 % (30-36); Mean Corpuscular Hemoglobin 29.5 PG (26-34); Mean Corpuscular Volume 90.6 fL (80-100); Monocytes Absolute Auto 900 /uL (0-900); Monocytes Percent Auto 8.3 % (3-14); Neutrophils Absolute Auto 6300 /uL (1500-7000); Neutrophils Percent Auto 55.6 % (50-75); Platelet Count 227 X10^3/uL (150-400); Red Blood Cell Count 3.74 X10^6/uL (4.0-5.2); Red Cell Distribution Width 13.4 % (11.6-14.8); White Blood Cell Count 11.3 X10^3/uL (4.5-11.0)
[2024-11-02 06:54] LABS: Creatine Kinase 217 U/L (30-135)
[2024-11-02 07:00] VITALS: BP 106/81; PULSE 111; RESP 24; TEMP 36.4; O2SAT 97; O2SAT 99
[2024-11-02 07:06] LABS: Troponin I 0.096 ng/mL (0.01-0.034)
[2024-11-02 07:22] LABS: Alanine Aminotransferase 19 IU/L (<35); Albumin 3.4 g/dL (3.5-5.0); Albumin Globulin Ratio 1.4 (1.0-2.8); Alkaline Phosphatase 74 U/L (38-126); Aspartate Aminotransferase 27 IU/L (14-36); BUN Creatinine Ratio 26.9 (6-22); Bilirubin Total 0.5 mg/dL (0.2-1.3); Blood Urea Nitrogen 28 mg/dL (7-17); Calcium 9.4 mg/dL (8.4-10.2); Carbon Dioxide 32 mmol/L (22-32); Chloride 102 mmol/L (98-107); Estimated Glomerular Filt Rate > 60 mL/min (>60); Globulin 2.4 g/dL (1.7-4.1); Glucose 226 mg/dL (80-110); HEMOLYSIS < 15 (0-50); Potassium 3.5 mmol/L (3.4-5.1); Sodium 138 mmol/L (137-145); Total Protein 5.8 g/dL (6.3-8.2)
[2024-11-02 07:58] LABS: Creatine Kinase 215 U/L (30-135)
[2024-11-02 08:11] LABS: Troponin I 0.084 ng/mL (0.01-0.034)
[2024-11-02] MEDS: METFORMIN HCL 500 MG TABLET PO (08:21)
[2024-11-02] MEDS: lisinopriL 20 MG TABLET PO (08:21)
[2024-11-02] MEDS: APIXABAN 5 MG TABLET PO (08:21)
[2024-11-02] MEDS: VENLAFAXINE ER 75 MG CAP 150 MG PO (08:21)
[2024-11-02] MEDS: POTASSIUM CHLORIDE 10 MEQ TAB PO (08:21)
[2024-11-02 11:57] VITALS: BP 104/69; PULSE 111; RESP 18; TEMP 36.7; O2SAT 99
--- NOTE | 2024-11-02 12:45 | P.HP_ITS ---
History of Present Illness History of Present Illness Date Patient Seen: 11/02/24 Time Patient Seen: 12:45 Chief complaint: syncope Narrative: 58-year-old female with end-stage COPD on 3L home O2, AFib, h/o multiple CVA on anticoagulation, hypertension, diabetes, CKD, anxiety/depression admitted for possible syncopal episode. Reports she woke up to go the bathroom in the middle of the night Friday/Friday and then everything ?went black? when she got to the bathroom door. Woke up some unknown time later and was able to crawl into her bedroom but did not have the strength to get back onto her bed so laid on floor. States that it was not until about 24 hours later that she felt more like herself. Denies any chest pain, SOB, lightheadedness, fever, urinary symptoms, change in bowel habits prior to event. Feels tender on right side of scalp and reports bruises in right ribcage and along right leg, assumes this is from falling into door frames/night stand near her bathroom. Presented to the ER yesterday afternoon, approximately 36 hours after the event. ER evaluation notable for WBC 15.2 with neutrophilic predominance, glucose 223, BNP 1330, elevated troponin that was unchanged on repeat (0.166 -> 0.163), nonischemic EKG. CXR without evidence of pneumonia or pleural effusion. CT head demonstrated old infarct with small-vessel ischemic change, no acute intracranial abnormality. Given her elevated troponin in the context of a syncopal episode and amnesia for 24-36 patient was admitted for observation to include cardiac monitoring, trending of troponins, and echocardiogram. [facility] Medical History Neoplasm of uncertain behavior of skin of forearm Fibromyalgia Atrial fibrillation Anticoagulation adequate with anticoagulant therapy CVA (cerebral vascular accident) Generalized anxiety disorder End stage chronic obstructive pulmonary disease Diabetic neuropathy Surgical History History of local excision of skin lesion History of Family History Father Alcoholic cirrhosis Mother Age: 81 Diabetes mellitus type II, controlled CVA (cerebral infarction) Social History marital status: unknown details: pt. lives with son household members: family and other lives independently: Yes occupational status: disabled Smoking Status: Current every day smoker alcohol intake: former substance use type: does not use Meds Home Medications and Allergies Home Medications Medication Instructions Recorded Confirmed Type ibuprofen 800 mg tablet 800 mg PO DAILY 11/11/22 11/01/24 History ondansetron HCl 4 mg tablet 4 mg PO Q8H PRN nausea and 09/19/23 11/01/24 Rx vomiting #30 tabs melatonin 3 mg capsule 3 mg PO BEDTIME PRN sleep #30 caps 10/08/23 11/01/24 Rx atorvastatin 40 mg tablet 40 mg PO BEDTIME #90 tabs 01/06/24 11/01/24 Rx sumatriptan succinate 50 mg tablet See Rx Instructions PO .COMPLEX 01/09/24 11/01/24 Rx #30 tabs ursodiol 300 mg capsule 300 mg PO BID #180 caps 01/09/24 11/01/24 Rx home oxygen concentrator #1 ea 05/21/24 09/03/24 Rx portable oxygen concentrator #1 ea 05/21/24 09/03/24 Rx tiotropium 2.5 mcg-olodaterol 2.5 2 puff inhalation DAILY #4 grams 05/24/24 11/01/24 Rx mcg/actuation mist for inhalation (Stiolto Respimat) apixaban 5 mg tablet (Eliquis) 5 mg PO BID #180 tabs 08/17/24 11/01/24 Rx lisinopril 20 mg tablet 20 mg PO DAILY #90 tabs 08/17/24 11/01/24 Rx venlafaxine 150 mg 150 mg PO DAILY #30 caps 08/17/24 11/01/24 Rx capsule,extended release 24 hr metformin 500 mg tablet 500 mg PO BID #180 tabs 08/19/24 11/01/24 Rx loratadine 10 mg tablet 10 mg PO DAILY #90 tabs 09/12/24 11/01/24 Rx Allergies Allergy/AdvReac Type Severity Reaction Status Date / Time azithromycin Allergy Severe ARM PAIN Verified 11/01/24 13:19 AND FACIAL REDNESS DURING INFUSION naproxen Allergy Severe Hives Verified 11/01/24 13:19 penicillin G Allergy Severe RASH Verified 11/01/24 13:19 codeine Allergy Mild RASH Verified 11/01/24 13:19 hydrocodone Allergy Mild RASH Verified 11/01/24 13:19 Review of Systems Review of Systems ROS: Yes All systems reviewed with the patient and are negative except as otherwise documented Exam Vital Signs (past 8 hours): - 11/02/24 07:00 11/02/24 07:21 11/02/24 11:57 Temperature 97.5 F L 98.1 F Pulse Rate 111 H 111 H Respiratory Rate 24 18 Blood Pressure 106/81 104/69 Pulse Oximetry 97 99 Oxygen Delivery Method Nasal Cannula Oxygen Flow Rate 3 3 3 Fraction of Inspired Oxygen 32 Fraction of Inspired Oxygen 32 Oxygen Delivery Method Nasal Cannula Oxygen Flow Rate 3 Narrative Exam Narrative: General: Pleasant, NAD HEENT: NC/AT, EOMI, moist membranes CV: Tachycardic, regular rhythm, normal S1-S2, no m/g/r Resp: CTAB, distant breath sounds, comfortable WOB Abd: Soft, NTND, +BS Ext: No edema Skin: Mild bruising on right flank below axilla and along right leg Neuro: A&O x3, moves all extremities, no focal deficits Objective Labs 11/02/24 05:10 11/02/24 06:00 Labs: Laboratory Results - last 24 hr 11/01/24 11/01/24 11/01/24 13:15 15:20 23:10 WBC 15.2 H RBC 4.42 Hgb 13.0 Hct 39.8 MCV 90.2 MCH 29.5 MCHC 32.7 RDW 13.3 Plt Count 280 Neut % (Auto) 70.9 Lymph % (Auto) 21.7 L Wise % (Auto) 6.7 Eos % (Auto) 0.0 L Baso % (Auto) 0.7 Neut # (Auto) 85421 H Lymph # (Auto) 3300 Wise # (Auto) 1000 H Eos # (Auto) 0 Baso # (Auto) 100 PT 14.7 H INR 1.3 APTT 36 Sodium 138 Potassium 3.4 Chloride 99 Carbon Dioxide 31 BUN 22 H Creatinine 1.00 Estimated GFR > 60 BUN/Creatinine Ratio 22.0 Glucose 223 H Calcium 9.7 Magnesium 1.7 Total Bilirubin 0.7 AST 32 ALT 28 Alkaline Phosphatase 77 Total Creatine Kinase 197 H 170 H 251 H Troponin I 0.166 H* 0.163 H* 0.136 H* NT-Pro-B Natriuret Pep 1330 H Total Protein 7.3 Albumin 4.4 Globulin 2.9 Albumin/Globulin Ratio 1.5 Lipase 92 11/02/24 11/02/24 11/02/24 05:10 06:00 07:35 WBC 11.3 H RBC 3.74 L Hgb 11.1 L Hct 33.9 L MCV 90.6 MCH 29.5 MCHC 32.6 RDW 13.4 Plt Count 227 Neut % (Auto) 55.6 Lymph % (Auto) 35.5 Wise % (Auto) 8.3 Eos % (Auto) 0.1 L Baso % (Auto) 0.5 Neut # (Auto) 6300 Lymph # (Auto) 4000 Wise # (Auto) 900 Eos # (Auto) 0 Baso # (Auto) 100 PT INR APTT Sodium 138 Potassium 3.5 Chloride 102 Carbon Dioxide 32 BUN 28 H Creatinine 1.04 Estimated GFR > 60 BUN/Creatinine Ratio 26.9 H Glucose 226 H Calcium 9.4 Magnesium Total Bilirubin 0.5 AST 27 ALT 19 Alkaline Phosphatase 74 Total Creatine Kinase 217 H 215 H Troponin I 0.096 H 0.084 H NT-Pro-B Natriuret Pep Total Protein 5.8 L Albumin 3.4 L Globulin 2.4 Albumin/Globulin Ratio 1.4 Lipase Assessment & Plan Assessment and plan (1) Syncope: Qualifiers: Syncope type: unspecified Qualified Code(s): R55 - Syncope and collapse Status: Acute (2) Elevated troponin: Status: Acute (3) Atrial fibrillation: Problem details: Paroxysmal, intermittent atrial flutter Qualifiers: Atrial fibrillation type: paroxysmal Qualified Code(s): I48.0 - Paroxysmal atrial fibrillation Status: Chronic (4) Anticoagulation adequate with anticoagulant therapy: Status: Chronic (5) Type 2 diabetes mellitus: Qualifiers: Diabetes mellitus complication detail: with polyneuropathy Diabetes mellitus complication status: with neurologic complications Diabetes mellitus [facility] insulin use: without [facility] use Qualified Code(s): E11.42 - Type 2 diabetes mellitus with diabetic polyneuropathy Status: Acute (6) Essential hypertension: Status: Chronic (7) Hyperlipidemia associated with type 2 diabetes mellitus: Status: Chronic (8) Chronic kidney disease, stage 3a: Status: Acute (9) End stage chronic obstructive pulmonary disease: Problem details: On 2L oxygen at home 04/13/2021 PFT: FEV1 34% predicted (GOLD 3 severe, SG 2 moderate) Use mMRC or CAT to survey symptoms Status: Chronic (10) Generalized anxiety disorder: Status: Chronic Assessment & Plan narrative: #syncope Admitted for observation with cardiac monitoring, trending troponins, and TTE. Remained in sinus rhythm with mild to moderate tachycardia on exertion, which is typical for her baseline. TTE notable for hyperdynamic LV contractility with EF> 65%, no significant valvular abnormalities or LVOT obstruction, possible right ventricular hypertrophy. No significant changes noted when compared with previous study. Patient never demonstrated any symptoms of presyncope/syncope, illness, or physical distress during admission. Unclear cause of possible syncopal event. No clear source of infection and white count downtrending without antibiotic treatment, likely more due to stress/inflammatory process from being down for prolonged period of time. Possible orthostatic event from inadequate oral hydration, as patient reports she often does not drink very much water during the day. -consider Zio monitor outpatient for evaluation of arrhythmia #elevated troponin Troponin 0.166 initially, 0.163 on repeat with nonischemic EKG at time of admission. Continued to trend downward on multiple repeat draws, 0.084 prior to discharge. No associated chest pain or new SOB. Likely due to prolonged time down in combination with artificial elevation due to CKD. #AFib Sinus rhythm with mild tachycardia throughout admission, which is typical for her baseline outpatient. -cardiac monitoring -continue home Eliquis #T2DM Hyperglycemic with POC glucose 223 on admission, 226 fasting this morning. Most recent A1c 7.7% on 09/03. -continue home metformin b.i.d. -repeat A1c next month to evaluate for adequate control #hypertension #hyperlipidemia #CKD 3A -continue home lisinopril, atorvastatin #COPD -continue home Stiolto Respimat inhaler, portable O2 at 3L/min #anxiety -continue home venlafaxine Time-Based Coding :: 45 minutes spent with patient and on the chart (including review of chart, obtaining history, exam, reviewing outside data, placing orders, documenting exam and treatment plan, and counseling patient) on 11/03/2024. Quality VTE Deep Vein Thrombosis/Pulmonary Embolism Present on Admission: No PROFEE Charge Codes Inpatient/observation care including admit and discharge same day: [id number]
[2024-11-02 16:00] VITALS: BP 119/80; PULSE 123; RESP 18; TEMP 36.1; O2SAT 98
--- NOTE | 2024-11-02 18:16 | P.DS_ITS ---
History of Present Illness History of Present Illness Chief complaint: syncope Narrative: 58-year-old female with end-stage COPD on 3L home O2, AFib, h/o multiple CVA on anticoagulation, hypertension, diabetes, CKD, anxiety/depression admitted for possible syncopal episode. Reports she woke up to go the bathroom in the middle of the night Friday/Friday and then everything ?went black? when she got to the bathroom door. Woke up some unknown time later and was able to crawl into her bedroom but did not have the strength to get back onto her bed so laid on floor. States that it was not until about 24 hours later that she felt more like herself. Denies any chest pain, SOB, lightheadedness, fever, urinary symptoms, change in bowel habits prior to event. Feels tender on right side of scalp and reports bruises in right ribcage and along right leg, assumes this is from falling into door frames/night stand near her bathroom. Presented to the ER yesterday afternoon, approximately 36 hours after the event. ER evaluation notable for WBC 15.2 with neutrophilic predominance, glucose 223, BNP 1330, elevated troponin that was unchanged on repeat (0.166 -> 0.163), nonischemic EKG. CXR without evidence of pneumonia or pleural effusion. CT head demonstrated old infarct with small-vessel ischemic change, no acute intracranial abnormality. Given her elevated troponin in the context of a syncopal episode and amnesia for 24-36 patient was admitted for observation to include cardiac monitoring, trending of troponins, and echocardiogram. Discharge Providers Provider Date of admission: 11/01/24 17:10 Discharge Date: 11/02/24 Primary care physician: Michael Belle MD Consults: 11/01/24 17:10 Consult to Physician Stat Comment: Consulting Provider: Michael Belle Reason for consultation: Admission Has provider been notified: No Consult to Physician Stat Comment: Consulting Provider: Butch Quinn Reason for consultation: Elevated troponin Has provider been notified: Yes Discharge provider: Michael Belle MD Summary Hospital Course Discharge Diagnosis: #syncope #elevated troponin #AFib #COPD #T2DM #CKD 3a #hypertension #hyperlipidemia #anxiety Hospital Course: Admitted for observation with cardiac monitoring, trending troponins, and TTE. Remained in sinus rhythm with mild to moderate tachycardia on exertion, which is typical for her baseline. Troponin 0.166 initially, 0.163 on repeat with nonischemic EKG at time of admission. Continued to trend downward on multiple repeat draws, 0.084 prior to discharge. TTE notable for hyperdynamic LV contractility with EF> 65%, no significant valvular abnormalities or LVOT obstruction, possible right ventricular hypertrophy. No significant changes noted when compared with previous study. Patient never demonstrated any symptoms of presyncope/syncope, illness, or physical distress during admission. Status at Discharge Cognitive/behavioral status at discharge: oriented Functional status at discharge: uses cane/walker Overall status at discharge: patient is back to baseline Time Spent with Patient Time spent: Greater than 30 minutes Exam Vital Signs (past 8 hours): - 11/02/24 11:57 11/02/24 16:00 Temperature 98.1 F 97.0 F L Pulse Rate 111 H 123 H Respiratory Rate 18 18 Blood Pressure 104/69 119/80 Pulse Oximetry 99 98 Oxygen Flow Rate 3 3 Fraction of Inspired Oxygen 32 Oxygen Delivery Method Nasal Cannula Oxygen Flow Rate 3 Narrative Exam Narrative: General: Pleasant, NAD HEENT: NC/AT, EOMI, moist membranes CV: Tachycardic, regular rhythm, normal S1-S2, no m/g/r Resp: CTAB, distant breath sounds, comfortable WOB Abd: Soft, NTND, +BS Ext: No edema Skin: Mild bruising on right flank below axilla and along right leg Neuro: A&O x3, moves all extremities, no focal deficits Objective Labs 11/02/24 05:10 11/02/24 06:00 Labs: Laboratory Results - last 24 hr 11/01/24 11/02/24 11/02/24 23:10 05:10 06:00 WBC 11.3 H RBC 3.74 L Hgb 11.1 L Hct 33.9 L MCV 90.6 MCH 29.5 MCHC 32.6 RDW 13.4 Plt Count 227 Neut % (Auto) 55.6 Lymph % (Auto) 35.5 [place] % (Auto) 8.3 Eos % (Auto) 0.1 L Baso % (Auto) 0.5 Neut # (Auto) 6300 Lymph # (Auto) 4000 [place] # (Auto) 900 Eos # (Auto) 0 Baso # (Auto) 100 Sodium 138 Potassium 3.5 Chloride 102 Carbon Dioxide 32 BUN 28 H Creatinine 1.04 Estimated GFR > 60 BUN/Creatinine Ratio 26.9 H Glucose 226 H Calcium 9.4 Total Bilirubin 0.5 AST 27 ALT 19 Alkaline Phosphatase 74 Total Creatine Kinase 251 H 217 H Troponin I 0.136 H* 0.096 H Total Protein 5.8 L Albumin 3.4 L Globulin 2.4 Albumin/Globulin Ratio 1.4 11/02/24 07:35 WBC RBC Hgb Hct MCV MCH MCHC RDW Plt Count Neut % (Auto) Lymph % (Auto) [place] % (Auto) Eos % (Auto) Baso % (Auto) Neut # (Auto) Lymph # (Auto) [place] # (Auto) Eos # (Auto) Baso # (Auto) Sodium Potassium Chloride Carbon Dioxide BUN Creatinine Estimated GFR BUN/Creatinine Ratio Glucose Calcium Total Bilirubin AST ALT Alkaline Phosphatase Total Creatine Kinase 215 H Troponin I 0.084 H Total Protein Albumin Globulin Albumin/Globulin Ratio [facility] Medical History Neoplasm of uncertain behavior of skin of forearm Fibromyalgia Atrial fibrillation Anticoagulation adequate with anticoagulant therapy CVA (cerebral vascular accident) Generalized anxiety disorder End stage chronic obstructive pulmonary disease Diabetic neuropathy Surgical History History of local excision of skin lesion History of Family History Father Alcoholic cirrhosis Mother Age: 81 Diabetes mellitus type II, controlled CVA (cerebral infarction) Social History marital status: unknown details: pt. lives with son household members: family and other lives independently: Yes occupational status: disabled Smoking Status: Current every day smoker alcohol intake: former substance use type: does not use Discharge Assessment & Plan Assessment and Plan Plan of Treatment: #syncope Unclear cause of possible syncopal event. No clear source of infection and white count downtrending without antibiotic treatment, likely more due to stress/inflammatory process from being down for prolonged period of time. TTE essentially unchanged from previous imaging, no significant valvular abnormalities such as aortic stenosis that might contribute to inadequate cerebral perfusion. Possible orthostatic event from inadequate oral hydration, as patient reports she often does not drink very much water during the day. TTE notable for hyperdynamic LV contractility with EF> 65%, no significant valvular abnormalities or LVOT obstruction, possible right ventricular hypertrophy. No significant changes noted when compared with previous study. -consider Zio monitor outpatient for evaluation of arrhythmia #elevated troponin 0.166 initially, 0.163 on repeat with nonischemic EKG at time of admission. Continued to trend downward on multiple repeat draws, 0.084 prior to discharge. No associated chest pain or new SOB. Likely due to prolonged time down in combination with artificial elevation due to CKD. #AFib -continue home Eliquis #T2DM Hyperglycemic with POC glucose 223 on admission, 226 fasting on day of discharge. Most recent A1c 7.7% on 09/03. -continue home metformin -repeat A1c next month to evaluate for adequate control #hypertension #hyperlipidemia #CKD 3A -continue home lisinopril, atorvastatin #COPD -continue home Stiolto Respimat inhaler, portable O2 at 3L/min #anxiety -continue home venlafaxine Discharge Plan Discharge Plan Patient Disposition: Home Discharge orders & Medications Prescriptions: Continued melatonin 3 mg capsule 3 mg PO BEDTIME PRN (Reason: sleep) Qty: 30 2RF ondansetron HCl 4 mg tablet 4 mg PO Q8H PRN (Reason: nausea and vomiting) Qty: 30 2RF sumatriptan succinate 50 mg tablet See Rx Instructions PO .COMPLEX Qty: 30 2RF Rx Instructions: take 1 tab at onset of headache; if no relief may repeat 1 tab after at least 2 hrs; max = 4 tabs/24 hr PO ursodiol 300 mg capsule 300 mg PO BID Qty: 180 2RF atorvastatin 40 mg tablet 40 mg PO BEDTIME Qty: 90 3RF (DME) home oxygen concentrator See Rx Instructions .Route .MEDSUPPLY Qty: 1 0RF Rx Instructions: Requires 3L continuously 24 hours a day via nasal cannula Length of need: lifetime (DME) portable oxygen concentrator See Rx Instructions .Route .MEDSUPPLY Qty: 1 0RF Rx Instructions: Requires 3L continuously 24 hours a day via nasal cannula Length of need: lifetime Stiolto Respimat 2.5-2.5 mcg/actuation mist 2 puff inhalation DAILY Qty: 4 5RF venlafaxine 150 mg capsule,extended release 24hr 150 mg PO DAILY Qty: 30 5RF lisinopril 20 mg tablet 20 mg PO DAILY Qty: 90 2RF Eliquis 5 mg tablet 5 mg PO BID Qty: 180 2RF Rx Instructions: assume med covered and/or low copay if received. stop warfarin on day you identify as stop day, and check INR daily after stopping. when INR is less than 2.o, start eliquis and continue it. stop if not tolerated or bleeding on eliquis. metformin 500 mg tablet 500 mg PO BID Qty: 180 2RF Rx Instructions: Take at 0800 and 1700// loratadine 10 mg tablet 10 mg PO DAILY Qty: 90 2RF ibuprofen 800 mg tablet 800 mg PO DAILY Discontinued diazepam 2 mg tablet See Rx Instructions PO DAILY Qty: 30 0RF Rx Instructions: Take 1 tab daily for 2 weeks then 1/2 tab daily Follow up/Referrals: Michael Belle MD [Primary Care Provider] - Diet/Activity/Treatments Diet: Regular Visit Report/Discharge Packet Stand Alone Forms: Patient Portal/API, Stroke Signs & Symptoms Discharge Data Primary Care Provider: Michael Belle Attending Provider: Michael Belle Admit Date/Time: 11/01/24 17:10 Quality VTE Deep Vein Thrombosis/Pulmonary Embolism Present on Admission: No
== END 2024-11-02 20:19 | disposition home or self-care (01) ==
LOC: ED 13:26 → AC 17:10
PROVIDERS: Family Medicine; Admitting Provider Family Medicine; Emergency Provider Emergency Medicine; PCP Family Medicine; Visit Provider Family Medicine
DX: R55 Syncope and collapse (principal); I48.0 Paroxysmal atrial fibrillation; J44.9 Chronic obstructive pulmonary disease, unspecified; R79.89 Other specified abnormal findings of blood chemistry; R41.3 Other amnesia; I12.9 Hypertensive chronic kidney disease with stage 1 through stage 4 chronic kidney disease, or unspecified chronic kidney disease; E11.22 Type 2 diabetes mellitus with diabetic chronic kidney disease; N18.31 Chronic kidney disease, stage 3a; F41.9 Anxiety disorder, unspecified; E78.5 Hyperlipidemia, unspecified; F17.210 Nicotine dependence, cigarettes, uncomplicated; Z86.73 Personal history of transient ischemic attack (TIA), and cerebral infarction without residual deficits; Z79.84 Long term (current) use of oral hypoglycemic drugs; Z99.81 Dependence on supplemental oxygen
CPT/HCPCS: 36415; 70450; 71045; 80053; 82550; 83690; 83735; 83880; 84484; 85025; 85610; 85730; 93005; 93010; 93306; 99235; 99285; G0378

== ENCOUNTER → 2024-12-02 15:59 | Outpatient (CLI) | payer MEDICARE, MEDICAID, SELFPAY ==
[2024-11-01 18:53] VITALS: BMI 30.1
[2024-12-02 18:17] LABS: Influenza A - CEPHEID Flu A NEGATIVE (NEGATIVE); Influenza B - CEPHEID Flu B NEGATIVE (NEGATIVE); Respiratory Syncytial Virus Negative (Negative)
[2024-12-02 18:22] LABS: COVID-19 CEPHEID 4-PLEX PCR Negative (Negative)
== END ==
PROVIDERS: PCP Family Medicine; Visit Provider Family Medicine
DX: R50.9 Fever, unspecified (principal)
CPT/HCPCS: 0241U

== ENCOUNTER → 2025-03-03 15:58 | Outpatient (CLI) | payer MEDICARE, MEDICAID, SELFPAY ==
[2024-11-01 18:53] VITALS: BMI 30.1
[2025-03-03 16:17] LABS: Hematocrit 38.9 % (36-46); Hemoglobin 12.7 g/dL (12.0-16.0); Mean Corpuscular HGB Conc 32.6 % (30-36); Mean Corpuscular Hemoglobin 28.7 PG (26-34); Mean Corpuscular Volume 88.1 fL (80-100); Platelet Count 256 X10^3/uL (150-400); Red Blood Cell Count 4.41 X10^6/uL (4.0-5.2); Red Cell Distribution Width 14.3 % (11.6-14.8); White Blood Cell Count 11.1 X10^3/uL (4.5-11.0)
[2025-03-03 16:34] LABS: Alanine Aminotransferase 20 IU/L (<35); Albumin 4.1 g/dL (3.5-5.0); Albumin Globulin Ratio 1.6 (1.0-2.8); Alkaline Phosphatase 104 U/L (38-126); Aspartate Aminotransferase 22 IU/L (14-36); Bilirubin Total 0.4 mg/dL (0.2-1.3); Blood Urea Nitrogen 13 mg/dL (7-17); Calcium 9.3 mg/dL (8.4-10.2); Carbon Dioxide 30 mmol/L (22-32); Chloride 102 mmol/L (98-107); Cholesterol 190 mg/dL (140-199); Estimated Glomerular Filt Rate > 60 mL/min (>60); Globulin 2.5 g/dL (1.7-4.1); Glucose 223 mg/dL (80-110); HDL Cholesterol 66 mg/dL (40-60); HEMOLYSIS < 15 (0-50); LDL Cholesterol Calculated 77 mg/dL (<100); Potassium 4.1 mmol/L (3.4-5.1); Sodium 138 mmol/L (137-145); Total Protein 6.6 g/dL (6.3-8.2); Triglycerides 233 mg/dL (35-150)
[2025-03-03 16:41] LABS: Hemoglobin A1C% w Est Avg Glu 8.8 % (4.0-6.0)
[2025-03-03 16:50] LABS: Vitamin D 25 Hydroxy (D3) 17.3 ng/mL (30.0-100.0)
== END ==
PROVIDERS: PCP Family Medicine; Referring Provider Family Medicine; Visit Provider Family Medicine
DX: E11.9 Type 2 diabetes mellitus without complications (principal); N18.31 Chronic kidney disease, stage 3a; J44.9 Chronic obstructive pulmonary disease, unspecified; R79.89 Other specified abnormal findings of blood chemistry
CPT/HCPCS: 36415; 80053; 80061; 82306; 83036; 85027

== ENCOUNTER → 2025-09-07 15:20 | Outpatient (CLI) | payer MEDICAID, SELFPAY ==
[2024-11-01 18:53] VITALS: BMI 30.1
[2025-09-07 16:36] LABS: Hematocrit 38.2 % (36-46); Hemoglobin 12.4 g/dL (12.0-16.0); Mean Corpuscular HGB Conc 32.6 % (30-36); Mean Corpuscular Hemoglobin 29.0 PG (26-34); Mean Corpuscular Volume 89.1 fL (80-100); Platelet Count 290 X10^3/uL (150-400)
[2025-09-07 16:51] LABS: Hemoglobin A1C% w Est Avg Glu 7.3 % (4.0-6.0)
[2025-09-07 17:24] LABS: Cholesterol 169 mg/dL (140-199); HDL Cholesterol 65 mg/dL (40-60); Triglycerides 163 mg/dL (35-150)
[2025-09-07 17:41] LABS: Vitamin D 25 Hydroxy (D3) < 12.8 ng/mL (30.0-100.0)
[2025-09-07 20:29] LABS: Microalbumi Creatinin Ratio Ur 79.0 ug/mg CR (<30)
== END ==
PROVIDERS: PCP Family Medicine; Referring Provider Family Medicine; Visit Provider Family Medicine
DX: E11.40 Type 2 diabetes mellitus with diabetic neuropathy, unspecified (principal); E11.42 Type 2 diabetes mellitus with diabetic polyneuropathy; E11.69 Type 2 diabetes mellitus with other specified complication; E78.5 Hyperlipidemia, unspecified; R53.83 Other fatigue
CPT/HCPCS: 36415; 80061; 82043; 82306; 82570; 83036; 85027